=== PATIENT | male | born 1985 | race Caucasian/White ===

== ENCOUNTER 2023-08-13 20:07 | Outpatient (CLI) | payer OTHER, SELFPAY ==
--- OUTSIDE RECORDS SUMMARY | 2023-08-13 20:15 | XMS_ITS | Clinical Summary ---
Author Name Unknown Organization [facility] Address [address] [place] [address] Care Team Providers Care Provisioning Analyst Name Role Phone Casa Duff MD Primary Care Provider [phone] Source Comments You are receiving this document as you are listed as the primary care provider,follow-up provider, or the patient has been referred to you for consultation.This is in compliance with the Medicare and[facility] EHR Incentive Program,which states Providers who transition their patient to another setting of careor provider of care or refers their patient to another provider of care shouldprovide summary care record for each transition of care or referral. [facility] Allergies No known active allergies Medications Medication Sig Dispensed Refills Start Date End Date Status unknown medication Indications: PN: 02/17/2008 Active Active Problems No known active problems Family History Medical History Relation Name Comments Stroke Maternal Grandfather Cancer Paternal Grandfather 70's Relation Name Status Comments Father Alive Mother Alive Maternal Grandfather Paternal Grandfather Social History Tobacco Use Types Packs/Day Years Used Date Smoking Tobacco: Never Smokeless Tobacco: Never Alcohol Use Standard Drinks/Week Comments Yes 0 (1 standard drink = 0.6 oz pur e alcohol) socially Sex and Gender Information Value Date Recorded Sex Assigned at Not on file Gender Identity Not on file Sexual Orientation Not on file Last Filed Vital Signs Vital Sign Reading Time Taken Comments Blood Pressure 102/70 01/23/2015 10:14 AM CDT Pulse 76 01/23/2015 10:14 AM CDT Temperature - - Respiratory Rate - - Oxygen Saturation - - Inhaled Oxygen Concentration - - Weight 64.3 kg (141 lb 12.8 oz) 015 10:14 AM CDT Height 170.2 cm (5' 7) 01/23/2015 10:1 4 AM CDT Body Mass Index 22.21 01/23/2015 10:14 AM CDT Plan of Treatment Health Maintenance Due Date Last Done Comments Hep C Screening (Preventive Services) 1983 HIV Screening (Preventive Services) 1999 Adult Preventive Visit 11/07/2001 DTaP/Tdap/Td (1 - Tdap) 11/07/2002 HepB (1) 11/07/2002 Cholesterol 01/24/2020 01/23/2015 COVID-19 Vaccine (1 - 2022-2 4 season) 2022 Influenza (#1) 2022 Zoster/Shingles (1 of 2) 11/07/2033 HPV Vaccine Aged Out No longer eligi ble based on patient's age to complete this topic HepA Aged Out No longer eligi ble based on patient's age to complete this topic Hib Aged Out No longer eligi ble based on patient's age to complete this topic IPV (Polio) Aged Out No longer eligi ble based on patient's age to complete this topic MCV4 Aged Out No longer eligi ble based on patient's age to complete this topic Pneumococcal Aged Out No longer eligi ble based on patient's age to complete this topic Procedures Procedure Name Priority Date/Time Associated Diagnosis Comments LIPID PANEL & DIRECT LDL (IF NEEDED) Routine 01/23/2015 11:07 AM CDT Annual physical exam Lipid screening Screening for diabetes mellitus from Last 3 Months or Most Recently Relevant to Health Maintenance Results * Lipid Panel and Direct LDL(If Needed) (01/23/2015 11:07 AM CDT) Cholesterol 189 0 - 200 mg/dL HP CONVERSION Triglycerides 91 0 - 149 mg/dL HP CONVERSION HDL Cholesterol 64 >39 mg/dL HP CONVERSION Cholesterol/HDL Ratio Screen 3.0 HP CONVERSION LDL Calculated 107 19 - 130 mg/dL HP CONVERSION Hours Fasting 15.0 HP CONVERSION 01/23/2015 11:0 7 AM CDT 01/23/2015 2:55 PM CDT Narrative HP CONVERSION - 01/23/2015 3:43 PM CDT Performed at [facility], [address] [address], [place] [address] Transcriptions 05/30/2016 2:54 AM CSTNotes Recorded by Casa Duff MD on 01/24/2015 at 1:02 PMplease call him with normal test results. cholesterol, liver, kidneys, blood sugar and prostate are all normal.consider urology consult to discuss recent symptoms in more detail. I will place order for this.thanks.Casa Duff MD 1:01 PM 01/24/2015 Casa Duff MD LAB_[email or web address] HP CONVERSION from Last 3 Months or Most Recently Relevant to Health Maintenance Care Teams Provisioning Analyst Relationship Specialty [place] [id number] [place] [id number] PCP - General 01/19/15
--- OUTSIDE RECORDS SUMMARY | 2023-08-13 20:15 | XMS_ITS | Clinical Summary ---
Author Name Unknown Organization [facility] Address [place], [place] [address] Care Team Providers Care Machinist Automotive Name Role Phone Steffanie Ferguson Primary Care Provide r Allergies No known active allergies Medications Medication Sig Dispensed Refills Start Date End Date Status buPROPion (WELLBUTRIN XL) 300 mg Extended-Release tablet 300 mg. 12/26/2022 A ctive citalopram (CELEXA) 20 mg tablet 30 mg. 06/12/2023 Active loperamide (IMODIUM) 2 mg capsule 2 mg. 12/26/2022 Active Active Problems Problem Noted Date Diagnosed Date Adjustment disorder with depressed mood 07/02/19 Overview: May 15, 2023 Entered By: CAROLINA FRANCOIS Comment: WITH DEPRESSED MOOD Other recurrent depressive disorders 07/02/2023 Irritable bowel syndrome with diarrhea Other asthma 07/02/2023 Encounters Date Type Department Care Team Description 07/09/2023 Telephone [facility] [address] [place] [address] Deep Cheng MD Questions 07/02/2023 1:00 PM CDT Telemedicine [facility] [address] [place] [address] Deep Cheng MD Sleep Consult; Telehealth (Virtual visit, no vitals taken.) 07/02/2023 Travel 07/01/2023 Transcribe Orders [facility] [address] [place] [address] Steffanie Ferguson PA from Last 3 Months Social History Tobacco Use Types Packs/Day Years Used Date Smoking Tobacco: Never Smokeless Tobacco: Never Tobacco Cessation:Counseling Given: Not Answered Alcohol Use Standard Drinks/Week Comments Yes 0 (1 standard drink = 0.6 oz pur e alcohol) Social Connections Answer Date Recorded Frequency of Communication with Friends and Fami ly Not on file 07/02/2023 Sex and Gender Information Value Date Recorded Sex Assigned at Not on file Gender Identity Not on file Sexual Orientation Not on file Obstetrics History Plan of Treatment Health Maintenance Due Date Last Done Comments Tdap 11/07/1994 Depression screening for age 12+ 1995 HIV for age 15-65 11/07/1998 BMI (ht and wt on same day) for age 18+ 11/07/2001 Hepatitis C screening for ag e 18-79 11/07/2001 Tetanus booster 2003 Lipids for age 35-44 11/07/2018 Influenza for age 9-49 12/21/2023 COVID-19 vaccine series Completed 06/12/2023 Pneumococcal series for age 6-64 Aged Out No longer eligible based on patient's age to complete this topic Care Teams Machinist Automotive Relationship Specialty Start Date [place] [address] PCP - General Physician Industrial Waste Treatment Technician 07/01/23
--- OUTSIDE RECORDS SUMMARY | 2023-08-13 20:16 | XMS_ITS | Encounter Summary ---
Author Name [employer] [facility] [employer] [employer] Organization [facility] Address [address] [place] [address] Support Name Relationship Address Phone CASTRO PEARSON Next of Kin [address] [place] [address] CASTRO PEARSON Emergency Contact [address] [place] [address] Insurance Providers: All historical and current Section Date Range: From patient's date of to the date document was created. This section includes the names of all active insurance providers for the patient. Insurance Provider Type of Coverage Plan Name Start of Policy Coverage End of Policy Coverage Group Number Member ID Insurance Provider's Telephone Number Policy Daniel's Name Patient's Relationship to Policy Daniel [place] PREFERRED PROVIDER ORGANIZAT ION (PPO) DOMINGA SEGUNDO SERVI JOSSELIN May 22, 2021 [id number] [phone] LILI,PH ILLIP PATIENT [place] PREFERRED PROVIDER ORGANIZAT ION (PPO) BAILI WICK SERVI JOSSELIN May 22, 2021 [id number] [phone] LILI,PH ILLIP PATIENT PRIME THERAPEUTI CS PRESCRIPT ION RX PLAN May 22, 2021 [facility] [id number] [phone] LILI,PH ILLIP PATIENT Selected Encounter This section includes the information on record at [place] for the Encounter. Date/Time Encounter Type Encounter Description Reason Provider Source Jun 12, 2023 12:00 PM OFFICE O/P EST MOD 30 MIN PRIMARY CARE/MEDICINE ICD-10-CM F33.8 Other recurrent depressive disorders SARAHI FERGUSON IHE Encounter Template Text not used by [place] Assessments - Encounter Diagnoses This section includes the primary and secondary diagnoses documented for the Encounter. Date/Time Primary/Secondary Diagnosis Diagnosis Name Provider Source Jun 12, 2023 12:49 PM PRIMARY Other recurrent depressive disorders RADHA FERGUSON [facility] Jun 12, 2023 12:49 PM SECONDARY Encounter for immunization CYNTHIA ARMANDO [facility] Jun 12, 2023 12:49 PM SECONDARY Male erectile dysfunction, unspecified RADHA FERGUSON [facility] Jun 12, 2023 12:49 PM SECONDARY Other fatigue RADHA FERGUSON [facility] Plan of Treatment: Future Appointments (+ 6 months) and Future Tests (+/- 45 days) The Plan of Treatment section includes future care activities for the patient [facility] [place] [facility] This section includes future appointments and future orders which are active, pending or scheduled. Future Appointments This section includes appointments that were scheduled to occur 6 months from the date of the Encounter, up to a maximum of 20 appointments. The data comes from all [facility]. Appointment Date/Time Appointment Type Appointme nt Facility Name Jun 26, 2023 09:20 AM AMBULATORY - MEDICINE [facility] Jun 26, 2023 10:30 AM AMBULATORY - MEDICINE [facility] Jun 26, 2023 11:30 AM AMBULATORY - MEDICINE [facility] Jul 02, 2023 01:00 PM [facility] Jul 17, 2023 10:30 AM AMBULATORY - MEDICINE [facility] Jul 22, 2023 09:34 PM AMBULATORY - MEDICINE [facility] August 20, 2023 01:20 PM AMBULATORY - MEDICINE [facility] Dec 09, 2023 02:30 PM AMBULATORY - SURGERY [facility] Active, Pending, and Scheduled Orders This section includes a listing of several types of active, pending, and scheduled orders, including clinic medications orders, diagnostic test orders, procedure orders and consult orders; where the start date of the order is 45 days before the date of the Encounter or 45 days after the date of theEncounter. The data comes from all [facility]. Test Date/Time Test Type Test Details Facility Name May 15, 2023 12:12 PM Consult Order [facility] Cons Data Architect's Choice [facility] Jul 23, 2023 12:00 AM Laboratory - Chemi stry Order TTG AB,IGA SERUM SP ONCE [facility] Jul 23, 2023 12:00 AM Laboratory - Chemi stry Order IGA PLASMA SP ONCE [facility] Jul 23, 2023 12:00 AM Laboratory - Chemi stry Order FOOD ALLERGY PROFILE SERUM SP ONCE [facility] Jul 23, 2023 12:00 AM Laboratory - Chemi stry Order C-REACTIVE PROTEIN PLASMA SP ONCE [facility] Lab Results: +/- 30 days of the encounter This section includes the Chemistry and Hematology Lab Results on record with [place] for the patient. Radiology Reports and Pathology Reports are provided separately, in subsequent sections. Lab Results This section contains the Chemistry/Hematology Results that were resulted 30 days before or 30 daysafter the date of the Encounter. Date/Time Source Result Type Result - Unit Interpretation Reference Range Comment Jun 12, 2023 12:35 PM [facility] HEMOGLOBIN A1C Specimen Type: BLOOD Comment: Values obtained from A1C measurements can vary. For typical A1C assays, a reported value of 7.0 could actually be between 6.7 and 7.3 if measured by a reference method. A reported value of 9.0 could actually be between 8.7 and 9.3. Ref: [email or web address].ng [email or web address]/CAPdat a.[email or web address] Ordering Provider: RADHA FERGUSON Report Released Date/Time: Jun 12, 2023 12:34 PM Reporting Lab: [facility] [id number] Performing Lab: [facility] [phone] HEMOGLOBIN A1C 5.1 4.0-6.0 Jun 12, 2023 12:35 PM [facility] ANTI-HEP C(EIA) Specimen Type: SERUM No comment entered. Ordering Provider: RADHA FERGUSON Report Released Date/Time: Jun 12, 2023 12:34 PM Reporting Lab: [facility] [phone] Performing Lab: [facility] [phone] ANTI-HEP C(EIA) NEGATIVE NEGATIVE Jun 12, 2023 12:35 PM [facility] HIV AG/AB SCREEN Specimen Type: SERUM No comment entered. Ordering Provider: RADHA FERGUSON Report Released Date/Time: Jun 12, 2023 12:34 PM Reporting Lab: [facility] [phone] Performing Lab: [facility] [phone] HIV AG/AB SCREEN NEGATIVE NEGATIVE Jun 12, 2023 12:35 PM [facility] TSH W/REFLEX TO FREE T4 Specimen Type: PLASMA No comment entered. Ordering Provider: RADHA FERGUSON Report Released Date/Time: Jun 12, 2023 12:34 PM Reporting Lab: [facility] [phone] Performing Lab: [id number] TSH 0.45 0.35-4.94 Jun 12, 2023 12:35 PM [facility] ELP/IMMFIX,SERUM PANEL Specimen Type: SERUM Comment: Values obtained from A1C measurements can vary. For typical A1C assays, a reported value of 7.0 could actually be between 6.7 and 7.3 if measured by a reference method. A reported value of 9.0 could actually be between 8.7 and 9.3. Ref: http://www.ng [email or web address] a.[email or web address] Ordering Provider: RADHA FERGUSON Report Released Date/Time: Jun 12, 2023 12:34 PM Reporting Lab: [facility] [phone] Performing Lab: [facility] [phone] PROTEIN,TOTAL 6.9 6.0-8.3 .ALBUMIN FRACTION 4.57 3.66-4.78 .ALPHA 1 FRACTION 0.25 0.14-0.38 .ALPHA 2 FRACTION 0.61 0.50-0.90 .BETA 1 FRACTION 0.39 0.33-0.55 .BETA 2 FRACTION 0.23 0.20-0.52 .GAMMA FRACTION 0.85 0.58-1.72 .TOTAL PROTEIN 6.9 6.0-8.3 .INTERPRETATION NO MONOCLONALS DETECTED Jun 12, 2023 12:35 PM [facility] VIT D 25-OH,TOTAL Specimen Type: SERUM No comment entered. Ordering Provider: RADHA FERGUSON Report Released Date/Time: Jun 12, 2023 12:34 PM Reporting Lab: [facility] [phone] Performing Lab: [facility] [phone] VIT D 25-OH,TOTAL 30 12-50 Jun 12, 2023 12:35 PM [facility] IRON GROUP Specimen Type: SERUM Comment: Values obtained from A1C measurements can vary. For typical A1C assays, a reported value of 7.0 could actually be between 6.7 and 7.3 if measured by a reference method. A reported value of 9.0 could actually be between 8.7 and 9.3. Ref: http://www. [email or web address] [email or web address] Ordering Provider: RADHA FERGUSON Report Released Date/Time: Jun 12, 2023 12:34 PM Reporting Lab: [facility] [address] Performing Lab: [facility] [phone] IRON 120 65-175 TIBC,CALCULATED 313 250-425 FERRITIN pending IRON SATURATION 38 20-50 TRANSFERRIN 250 163-382 Jun 12, 2023 12:35 PM [facility] COMPREHENSIVE METABOLIC PANEL+MG Specimen Type: PLASMA Comment: Values obtained from A1C measurements can vary. For typical A1C assays, a reported value of 7.0 could actually be between 6.7 and 7.3 if measured by a reference method. A reported value of 9.0 could actually be between 8.7 and 9.3. Ref: http://www. [email or web address] [email or web address] Ordering Provider: RADHA FERGUSON Report Released Date/Time: Jun 12, 2023 12:34 PM Reporting Lab: [facility] [phone] Performing Lab: [facility] Jun 12, 2023 12:35 PM [facility] CBC & DIFF Specimen Type: BLOOD Comment: Automated Differential Performed Ordering Provider: RADHA FERGUSON Report Released Date/Time: Jun 12, 2023 12:34 PM Reporting Lab: [facility] [phone] Performing Lab: [facility] [phone] WBC 5.32 4.0-11.0 RBC 5.94 4.6-6.2 HGB 16.6 13.5-17.9 HCT 49.7 41-54 MCV 83.7 80-100 MCH 27.9 27-33 MCHC 33.4 32.0-37.5 PLT 258 150-400 MPV 8.7 7.4-10.4 NEUT 71.7 40.0-80.0 LYMPHS 20.3 15.0-45.0 MONO 6.4 2.0-12.0 EOSINO 0.6 0.0-6.0 BASO 0.8 0.0-2.0 RDW 12.6 11.5-14.5 ABS LYMPH 1.08 1.0-4.0 ABS MONO 0.34 0.1-1.0 ABS NEUT 3.82 2.0-7.7 ABS EOS 0.03 0-0.5 ABS BASO 0.04 0-0.2 IG(META,MYELO,P RO) 0.2 ABS IMMATURE GRAN 0.01 0-0.1 Jun 12, 2023 10:30 AM [facility] URINALYSIS Specimen Type: URINE No comment entered. Ordering Provider: YANIRA BERTRAND Report Released Date/Time: Jun 12, 2023 10:01 AM Reporting Lab: [facility] [phone] Performing Lab: [facility] [address] URINE COLOR LIGHT-YELLOW SPECIFIC GRAVITY 1.011 1.003-1.03 5 URINE BILIRUBIN NEGATIVE NEGATIVE URINE KETONES NEGATIVE NEGATIVE URINE GLUCOSE NEGATIVE See_Co mmen t URINE PROTEIN NEGATIVE See_Co mmen t URINE PH 8.0 5.0-8.0 URINE WBC/HPF <1 0-7 URINE BACTERIA NONE SEEN URINE RBC/HPF NONE SEEN 0-3 APPEARANCE CLEAR SQUAMOUS EPITHELIAL NONE SEEN URINE BLOOD NEGATIVE NEGATIVE URINE NITRITE NEGATIVE NEGATIVE LEUKOCYTE ESTERASE NEGATIVE NEGATIVE Vital Signs: All taken on the encounter date This section contains inpatient and outpatient Vital Signs collected on the date of the Encounter. Date/Time Temperature Pulse Blood Pressure Respiratory Rate SP02 Pain Height Weight Body Mass Index Source Jun 12, 2023 12:00 PM 99 74 131/85 18 97 5 157.3 25 [place] [facility] Immunizations: All administered on the encounter date This section contains immunizations associated to the Encounter. Immunization Series Date Issued Reaction Comments COVID-19 (PFIZER), MRNA, LNP -S, PF, JERRI-SUCROSE, 30 MCG/0.3 ML (AGES 12+ YEARS) 1 Jun 12, 2023 Social History: Smoking Status (Most current) and Tobacco Use (All prior to encounter date) This section includes the most current, and the historical, smoking and tobacco- related health factors from the [place] facility where the Encounter took place. Current Smoking Status This section includes the most current smoking, or tobacco-related health factor, from the [place] facility where the Encounter took place. Date/Time Current Smoking Status Comment Parag lima Sep 24, 2022 01:00 PM VA-TOBACCO NEVER USED [facility] Tobacco Use History This section includes a history of the smoking, or tobacco-related health factors, that were collected on or before the date of the Encounter. The data comes from the [place] facility where the Encounter took place. Date/Time Smoking Status/Tobacco Use Comment F acility Mar 28, 2021 02:33 PM VA-TOBACCO NEVER USED [facility] Jan 21, 2020 02:30 PM VA-TOBACCO NEVER USED [facility] Jun 15, 2018 09:56 AM VA-TOBACCO NEVER USED [facility] Jul 16, 2017 08:39 AM LIFETIME NON-TOBACCO USER [facility] September 05, 2016 05:17 PM LIFETIME NON-TOBACCO USER [facility] Feb 19, 2008 12:20 PM LIFETIME NON-TOBACCO USER [facility] Radiology Reports: +/- 30 days of the encounter Radiology Reports For cases when an order for radiology services may have been completed prior to the date of the Encounter, the report list includes the Radiology Reports that were completed up to 30 days before dateof the Encounter. For cases when an order for radiology services may have been completed after the date of the Encounter, the report list also includes the Radiology Reports that were completed up to30 days after date of the Encounter. The data comes from all [place] treatment facilities. Date/Time Radiology Report Provider Source Jun 12, 2023 10:35 AM LUMBAR SPINE MIN 4 VIEWS: AFTAB PEARSON [id number] -1985 M Exm Date: JUN 12, 2023@10:35 Req Phys: CAROLINA FRANCOIS Pat Loc: [facility] C&P ALESSANDRO (Req'g Loc Img Loc: MAIN X-RAY Service: Unknown (Case [id number] COMPLETE) LUMBAR SPINE MIN 4 VIEWS (RAD Detailed) CPT:16821 Proc Modifiers : Standing Reason for Study: Chronic lumbalgia 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 [employer] Clinical History: IS NOT under investigation for COVID-19 or is COVID-19 negative Standing AP, Standing Lat, Standing L5/S1 Lat, Vo. Chronic lumbalgia 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 [employer] Responsible provider name and phone number to notify for critical findings if other than user placing the order and pager listed below: User placing orders pager: LAST CREATININE 1.0 (12/26/22) Report Status: Verified Date Reported: JUN 12, 2023 Date Verified: JUN 12, 2023 Train Attendant E-Sig:/ES/DANIEL BOND MD, FACR, CCD Report: EXAMINATION: LUMBAR SPINE MIN 4 VIEWS 06/12/2023 10:35 AM INDICATION: Chronic lumbalgia 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 [employer] COMPARISON: None. FINDINGS: The lumbar vertebral bodies appear intact. No abnormal subluxation identified. Mild degenerative changes L1-2 disc space. The other disc spaces appear preserved. The SI joints appear unremarkable. Impression: Mild degenerative changes L1-2 disc space. Primary Interpreting Staff: DANIEL BOND MD, FACR, STAFF RADIOLOGIST (Train Attendant) /BSF DANIEL BOND [facility] Jun 12, 2023 10:35 AM CHEST 2 VIEWS PA A ND LAT: AFTAB PEARSON [id number] -1985 M Exm Date: JUN 12, 2023@10:35 Req Phys: CAROLINA FRANCOIS Pat Loc: [facility]SN [facility] C&P ALESSANDRO (Req'g Loc Img Loc: MAIN X-RAY Service: Unknown (Case [id number] COMPLETE) CHEST 2 VIEWS PA AND LAT (RAD Detailed) CPT:83459 Reason for Study: H/O asbestos exposure approximately 10 years ago. Clinical History: Cadet IS NOT under investigation for COVID-19 or is COVID-19 negative H/O asbestos exposure approximately 10 years ago. Responsible provider name and phone number to notify for critical findings if other than user placing the order and pager listed below: User placing orders pager: LAST CREATININE 1.0 (12/26/22) Report Status: Verified Date Reported: JUN 12, 2023 Date Verified: JUN 12, 2023 Train Attendant E-Sig:/ES/VERONICA FARLEY MD Report: EXAMINATION: CHEST 2 VIEWS PA AND LAT 06/12/2023 10:35 AM INDICATION: H/O asbestos exposure approximately 10 years ago. Impression: Incidentally noted is an azygos lobe. Chest otherwise unremarkable. No calcified pleural plaque identified on this plain film examination. Lungs are clear without infiltrate or pleural effusion. Heart size and pulmonary vascularity within normal limits. No comparison exam. 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 [employer] Clinical History: [place] IS NOT under investigation for COVID-19 or is COVID-19 negative 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 [employer] Responsible provider name and phone number to notify for critical findings if other than user placing the order and pager listed below: User placing orders pager: LAST CREATININE 1.0 (12/26/22) Report Status: Verified Date Reported: JUN 12, 2023 Date Verified: JUN 12, 2023 Train Attendant E-Sig:/ES/VERONICA FARLEY MD Report: EXAMINATION: KNEE RIGHT 4 VIEWS 06/12/2023 10:34 AM INDICATION: 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 No significant degenerative changes of the knee. No significant joint effusion. No comparison exam. Primary Interpreting Staff: VERONICA FARLEY MD, RADIOLOGIST (Train Attendant) /RTS VERONICA FARLEY [facility] Jun 12, 2023 10:34 AM KNEE LEFT 4 VIEWS: AFTAB PEARSON [id number] -1985 M Exm Date: JUN 12, 2023@10:34 Req Phys: CAROLINA FRANCOIS Pat Loc: [facility]SN [facility] C&P ALESSANDRO (Req'g Loc Img Loc: MAIN X-RAY Service: Unknown (Case [id number] COMPLETE) KNEE LEFT 4 VIEWS (RAD Detailed) CPT:27764 Reason for Study: 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 [employer] Clinical History: IS NOT under investigation for COVID-19 or is COVID-19 negative 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 [employer] Responsible provider name and phone number to notify for critical findings if other than user placing the order and pager listed below: User placing orders pager: LAST CREATININE 1.0 (12/26/22) Report Status: Verified Date Reported: JUN 12, 2023 Date Verified: JUN 12, 2023 Train Attendant E-Sig:/ES/VERONICA FARLEY MD Report: EXAMINATION: KNEE LEFT 4 VIEWS 06/12/2023 10:34 AM INDICATION: 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 No significant degenerative changes of the knee. No significant joint effusion. Primary Interpreting Staff: VERONICA FARLEY MD, RADIOLOGIST (Train Attendant) /RTS VERONICA FARLEY [facility] Encounter Notes: All associated encounter notes This section contains the clinical notes associated to the Encounter. Date/Time Encounter Note(s) Provider Source Jun 13, 2023 11:40 AM LETTERS: LOCAL TITLE: FOLLOW UP RESULTS LETTER STANDARD TITLE: LETTERS DATE OF NOTE: JUN 13, 2023@11:40 ENTRY DATE: JUN 13, 2023@11:40:44 AUTHOR: STEFFANIE FERGUSON EXP COSIGNER: URGENCY: STATUS: COMPLETED [facility] [address] [place] [address] May AFTAB ALCALA LILI [address] [facility] [address] Dear Cadet: I am writing to inform you of the results of testing that you had done recently at the [facility]. - Complete Blood Count (red/white blood cell counts and platelets) White count: WBC 5.32 (06/12/23) (normal is 4.0-11.0) Hemoglobin: HGB 16.6 (06/12/23) (normal Male is 13.5-17.9; Female is 11.5-16) Hematocrit: HCT 49.7 (06/12/23) (normal Male is 41-54; Female is 34.5-48) Platelets: PLT 258 (06/12/23) (normal is 150-400) - Electrolytes including sodium and potassium SODIUM 140 (06/12/23) (normal is 136-145) POTASSIUM 3.9 (06/12/23) (normal is 3.5-5.1) - Calcium CALCIUM 9.7 (06/12/23) (normal is 8.5-10.1) - Kidney function CREATININE 0.9 (06/12/23)(normal Male = less than 1.2; normal Female = less than 1.0)) UREA NITROGEN 10 (06/12/23) (normal Male is 8-26; normal Female is 10-20) - Blood Sugar GLUCOSE 89 (06/12/23) (normal is 70 - 100 if fasting) - Liver function Tests AST/SGOT 22 (06/12/23) (normal 15-37) ALT/SGPT 22 (06/12/23) (normal 13-61) ALK PHOSPHATASE 69 (06/12/23) (normal 45-117) BILIRUBIN, TOTAL 0.6 (06/12/23) (normal 0.2-1.0) - Hemoglobin A1C (normal 4.0-6.0) Collection DT Spec HGBA1C 06/12/2023 12:35 BLOOD 5.1 03/09/2010 15:09 BLOOD 4.8 - Thyroid Function: TSH 0.45 (06/12/23) (normal 0.3-5.0) Additional Comments: Your labs were all normal. If you have any further questions or problems, please contact our nursing staff or provider at the following number: [phone]. Sincerely, Steffanie Ferguson PA-C Physician [employer] STEFFANIE FERGUSON [facility] Jun 12, 2023 12:35 PM INTERNAL MEDICINE NOTE: LOCAL TITLE: MEDICINE CLINIC NOTE STANDARD TITLE: INTERNAL MEDICINE NOTE DATE OF NOTE: JUN 12, 2023@12:35 ENTRY DATE: JUN 12, 2023@12:36 AUTHOR: STEFFANIE FERGUSON EXP COSIGNER: URGENCY: STATUS: COMPLETED Nurse's notes reviewed from today. AFTAB PEARSON is a 37 year old MALE with a past medical history significant for depression and adjustment disorder who presents to the [facility] (primary HSQD-yldwipd-xcx available) for medication question. His did a genetic test to see which antidepressant would work best for her, he would like this too. He is reporting ED with the wellbutrin and citalopram, otherwise they are controlling his symptoms well. Also has fatigue, wanted a stimulant but was tested for ADHD and did not have this. Has a referral to the sleep clinic but has not scheduled. No weakness noted. just feels tired all day and that he could take a nap at any time. Active problems - Computerized Problem List is the source for the followin. Tinea Unguium 2. Acne 3. Adjustment disorder with depressed mood 4. Depression 5. Social phobia 6. Temporomandibular joint disorder 7. 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 Air pollution (SNOMED CT 863931406) 9. Exposure to asbestos (SNOMED CT 073625418) - In Dorm in [place] 10. Exposure to aromatic benzene (SNOMED CT 034330633523502) - JET FUEL contaminant 11. Exposed to tobacco smoke at work (SNOMED CT 829586309) - Passive smoke 12. Exposed to noise (SNOMED CT 0072609) - Acoustical Trauma 13. Shortness of breath (SNOMED CT 561995559) - CESPEDES 14. History of palpitations (SNOMED CT 763010764) - NOS 15. Diarrhea (SNOMED CT 77190696) - Constant issue 16. Adjustment disorder (SNOMED CT 90344077) - WITH DEPRESSED MOOD 17. Wheezing - Wheezing when running not seen by Pulmonary 18. 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 Exposure to potentially hazardous substance 20. Finding of frequency of urination Allergies: Patient has answered NKA Active and Recently Outpatient Medications (including Supplies): Active Outpatient Medications Status 1) BUPROPION HCL 300MG 24HR SA TAB TAKE ONE TABLET BY ACTIVE MOUTH EVERY MORNING FOR MOOD 2) HYDROXYZINE HCL 25MG TAB TAKE ONE TABLET BY MOUTH AT ACTIVE BEDTIME FOR SLEEP 3) LACTASE 3000 UNT TAB TAKE ONE TABLET BY MOUTH FOUR ACTIVE TIMES A DAY NEEDED FOR LACTOSE INTOLERANCE 4) LOPERAMIDE HCL 2MG CAP TAKE ONE CAPSULE BY MOUTH ACTIVE THREE TIMES A DAY NEEDED FOR DIARRHEA Pending Outpatient Medications Status 1) CITALOPRAM HYDROBROMIDE 20MG TAB TAKE ONE AND PENDING ONE-HALF TABLETS BY MOUTH EVERY DAY 2) SILDENAFIL CITRATE 100MG TAB TAKE ONE TABLET BY MOUTH PENDING ONCE NEEDED Inactive Outpatient Medications Status 1) BUPROPION HCL 300MG 24HR SA TAB TAKE ONE TABLET BY DISCONTINUED MOUTH EVERY MORNING FOR MOOD 2) CITALOPRAM HYDROBROMIDE 10MG TAB TAKE ONE TABLET BY DISCONTINUED MOUTH EVERY DAY FOR ANXIETY (EDIT) 3) CITALOPRAM HYDROBROMIDE 20MG TAB TAKE ONE TABLET BY DISCONTINUED MOUTH EVERY DAY FOR ANXIETY (EDIT) 4) CITALOPRAM HYDROBROMIDE 20MG TAB TAKE ONE TABLET BY DISCONTINUED MOUTH EVERY DAY FOR ANXIETY 5) HYDROXYZINE HCL 25MG TAB TAKE ONE TABLET BY MOUTH AT DISCONTINUED BEDTIME FOR SLEEP 6) LOPERAMIDE HCL 2MG CAP TAKE ONE CAPSULE BY MOUTH DISCONTINUED THREE TIMES A DAY NEEDED FOR DIARRHEA Active Non-VA Medications Status 1) Non-VA DIPHENHYDRAMINE HCL 25MG CAP 25MG MOUTH EVERY ACTIVE DAY NEEDED 2) Non-VA LORATADINE 10MG TAB 10MG MOUTH EVERY DAY ACTIVE NEEDED 14 Total Medications MEDICATION RECONCILIATION Outpatient At this visit I have reviewed the medication list, and discussed relevant medications with the patient/surrogate. An updated patient medication list was given to the participant(s). (x) No Change ( ) Change/New: I have noted this on the patient's copy of the medication list. Education on NEW Medication: I have reviewed the medication list for possible drug:drug interactions or contraindications prior to ordering NEW medications during this visit. ( )Patient instructed. I noted new medication on patient's copy of the medication list. Patient sent to Pharmacist for education on new medication. ( )Patient ( )Family Member ( )Caregiver indicated readiness to learn and has been instructed on action, dose, frequency and side effects of the new medication and I noted new medication on participant's copy of the medication list. ( ) Verbalizes understanding of instructions. ( ) Needs additional reinforcement of instructions(sent to Pharmacist). ( )Patient unable to participate in learning/instruction. Family/Social History: (x) Not applicable to today's visit. 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 Assessment and Plan: #. Depression Discussed that we do not have the genetic test available here currently. Offered to trial a new med but he declines. Will continue wellbutrin and increase celexa to 30mg daily. #. ED trial of viagra #. Fatigue encouraged to schedule with sleep clinic. Will check labs today as well. (x) Patient/Caregiver indicates readiness to learn, verbalizes understanding, agreement and satisfaction with the treatment plan. Patient/Caregiver doesn't have any further questions today. /bhupendra/ Steffanie Ferguson PA-C Physician Mcat Tutor Signed: 06/12/2023 12:49 STEFFANIE FERGUSON [facility] Jun 12, 2023 12:01 PM INTERNAL MEDICINE OUTPATIENT NOTE: LOCAL TITLE: MEDICINE CLINIC NURSING NOTE STANDARD TITLE: INTERNAL MEDICINE OUTPATIENT NOTE DATE OF NOTE: JUN 12, 2023@12:01 ENTRY DATE: JUN 12, 2023@12:02:04 AUTHOR: JEANNA ARMANDO EXP COSIGNER: URGENCY: STATUS: COMPLETED TYPE OF VISIT: Appointment Check In Type of appointment: In-person appointment REASON FOR VISIT: medication ALLERGIES: Patient has answered NKA VITAL SIGNS: Blood Pressure: 131/85 (06/12/2023 12:00) Pulse: 74 (06/12/2023 12:00) Respiration: 18 (06/12/2023 12:00) Temperature: 99 F [37.2 C] (06/12/2023 12:00) Weight: 157.3 lb [71.35 kg] (06/12/2023 12:00) Height: 67 in [170.2 cm] (12/26/2022 09:51) BMI: 24.7 O2 Sat: 97% (06/12/2023 12:00) Pain: 5 (06/12/2023 12:00) PAIN SCREEN: Patient is not having significant pain that they wish to discuss with their provider today. MEDICATION Over the Counter/Herbal Medications: The patient states that they take some outside medications and/or herbals. COVID-19 Immunization: Pfizer Monovalent (Comirnaty) Administered: COVID-19 (PFIZER), MRNA, LNP-S, PF, JERRI-SUCROSE, 30 MCG/0.3 ML (AGES 12+ YEARS) Date Administered: Jun 12, 2023 12:00 Series: Series 1 Corrugator Operator: [employer] Lot: [id number] Exp Date: September 19, 2023 [facility]: [phone] Admin Route/Site: INTRAMUSCULAR/LEFT DELTOID Dosage: 0.3mL Vaccine Information Statement(s): COVID-19 MRNA VACCINE (12+ YRS) VACCINE VIS Feb 06, 2023 ([facility]) Order By: Policy Administered By: Jeanna Armando Vaccine administered without complications. The patient was advised to remain in the facility for 15 minutes post vaccination. /bhupendra/ JEANNA ARMANDO LPN LICENSED PRACTICAL NURSE Signed: 06/12/2023 12:05 JEANNA ARMANDO [facility]
--- OUTSIDE RECORDS SUMMARY | 2023-08-13 20:16 | XMS_ITS | Encounter Summary ---
Author Name [employer] [facility] [employer] Organization [facility] Address [address] [place] [address] Support Name Relationship Address Phone CASTRO PEARSON Next of Kin [email or web address] [address] CASTRO PEARSON Emergency Contact [address] [place] [address] Insurance Providers: All historical and [...] DOMINGA SEGUNDO SERVI JOSSELIN May 22, 2021 [id number] [phone] LILI,PH ILLIP PATIENT [place] PREFERRED PROVIDER ORGANIZAT ION (PPO) BAILI WICK SERVI JOSSELIN May 22, 2021 [id number] [phone] LILI,PH ILLIP PATIENT PRIME THERAPEUTI CS PRESCRIPT ION RX PLAN May 22, 2021 [facility] [id number] [phone] LILI,PH ILLIP PATIENT Selected Encounter This section includes the information on record at [place] for the Encounter. Date/Time Encounter Type Encounter Description Reason Provider Source May 15, 2023 10:00 AM Outpatient Encounter GENERAL INTERNAL MEDICINE ICD-10-CM Z77.29 Contact with and exposure to other hazardous substances VADIM FRANCOIS E Encounter Template Text not used by [place] Assessments - Encounter Diagnoses This section includes the primary and secondary diagnoses documented for the Encounter. Date/Time Primary/Secondary Diagnosis Diagnosis Name Provider Source May 15, 2023 11:32 AM PRIMARY Contact with and exposure to other hazardous substances ALESSANDRO,VADIM B [facility] May 15, 2023 11:32 AM SECONDARY Adjustment disorder with depressed mood ALESSANDRO,VADIM B [facility] May 15, 2023 11:32 AM SECONDARY Adjustment disorder, unspecified ALESSANDRO,VADIM B [facility] May 15, 2023 11:32 AM SECONDARY Anxiety disorder, unspecified ALESSANDRO,VADIM B [facility] May 15, 2023 11:32 AM SECONDARY Cntct w and expsr to environ tobacco smoke (acute) (chronic) ALESSANDRO,VADIM B [facility] May 15, 2023 11:32 AM SECONDARY Contact w and (suspected) exposure to oth hazardous metals ALESSANDRO,VADIM B [facility] May 15, 2023 11:32 AM SECONDARY Contact with and (suspected) exposure to air pollution ALESSANDRO,VADIM B [facility] May 15, 2023 11:32 AM SECONDARY Contact with and (suspected) exposure to asbestos ALESSANDRO,VADIM B [facility] May 15, 2023 11:32 AM SECONDARY Contact with and (suspected) exposure to benzene ALESSANDRO,VADIM B [facility] May 15, 2023 11:32 AM SECONDARY Contact with and (suspected) exposure to noise ALESSANDRO,VADIM B [facility] May 15, 2023 11:32 AM SECONDARY Diarrhea, unspecified ALESSANDRO,VADIM B [facility] May 15, 2023 11:32 AM SECONDARY Lactose intolerance, unspecified ALESSANDRO,VADIM B [facility] May 15, 2023 11:32 AM SECONDARY Other recurrent depressive disorders ALESSANDRO,VADIM B [facility] May 15, 2023 11:32 AM SECONDARY Palpitations ALESSANDRO,VADIM B [facility] May 15, 2023 11:32 AM SECONDARY Right temporomandibular joint disorder, unspecified ALESSANDRO,VADIM B [facility] May 15, 2023 11:32 AM SECONDARY Shortness of breath ALESSANDRO,VADIM B [facility] May 15, 2023 11:32 AM SECONDARY Wheezing VADIM FRANCOIS [facility] Plan of Treatment: Future Appointments (+ 6 months) and Future Tests (+/- 45 days) The Plan of Treatment section includes future care activities for the patient from all [place] [facility]. This section includes future appointments and future orders which are active, pending or scheduled. Future Appointments This section includes appointments that were scheduled to occur 6 months from the date of the Encounter, up to a maximum of 20 appointments. The data comes from all [facility]. Appointment Date/Time Appointment Type Appointme nt Facility Name Jun 12, 2023 09:30 AM AMBULATORY - SURGERY [facility] Jun 12, 2023 11:30 AM [facility] Jun 12, 2023 12:00 PM [facility] Jun 26, 2023 09:20 AM [facility] Jun 26, 2023 10:30 AM [facility] Jun 26, 2023 11:30 AM [facility] Jul 02, 2023 01[facility]00 PM [facility] Jul 17, 2023 10:30 AM [facility] Jul 22, 2023 09:34 PM [facility] August 20, 2023 01:20 PM AMBULATORY MEDICINE [facility] Active, Pending, and Scheduled Orders This section includes a listing of several types of active, pending, and scheduled orders, including clinic medications orders, diagnostic test orders, procedure orders and consult orders; where the start date of the order is 45 days before the date of the Encounter or 45 days after the date of theEncounter. The data comes from all [facility]. Test Date/Time Test Type Test Details Facility Name May 15, 2023 12:12 PM Consult Order COMMUNITY CARE-SLEEP MEDICINE Cons Online Media Director's Choice [facility] Lab Results: +/- 30 days of the encounter This section includes the Chemistry and Hematology Lab Results on record with [place] for the patient. Radiology Reports and Pathology Reports are provided separately, in subsequent sections. Lab Results This section contains the Chemistry/Hematology Results that were resulted 30 days before or 30 daysafter the date of the Encounter. Date/Time Source Result Type Result - Unit Interpretation Reference Range Comment Jun 12, 2023 12:35 PM [facility] HEMOGLOBIN A1C Specimen Type: BLOOD Comment: Values obtained from A1C measurements can vary. For typical A1C assays, a reported value of 7.0 could actually be between 6.7 and 7.3 if measured by a reference method. A reported value of 9.0 could actually be between 8.7 and 9.3. Ref: http://www.ng sp.org/CAPdat a.asp Ordering Provider: RADHA HAYES Report Released Date/Time: Jun 12, 2023 12:34 PM Reporting Lab: [facility] [id number] Performing Lab: [facility] [address] HEMOGLOBIN A1C 5.1 4.0-6.0 Jun 12, 2023 12:35 PM [facility] ANTI-HEP C(EIA) Specimen Type: SERUM No comment entered. Ordering Provider: RADHA HAYES Report Released Date/Time: Jun 12, 2023 12:34 PM Reporting Lab: [facility] [address] Performing Lab: [facility] [address] ANTI-HEP C(EIA) NEGATIVE NEGATIVE Jun 12, 2023 12:35 PM [facility] HIV AG/AB SCREEN Specimen Type: SERUM No comment entered. Ordering Provider: RADHA HAYES Report Released Date/Time: Jun 12, 2023 12:34 PM Reporting Lab: [facility] [address] Performing Lab: [facility] [address] HIV AG/AB SCREEN NEGATIVE NEGATIVE Jun 12, 2023 12:35 PM [facility] TSH W/REFLEX TO FREE T4 Specimen Type: PLASMA No comment entered. Ordering Provider: RADHA HAYES Report Released Date/Time: Jun 12, 2023 12:34 PM Reporting Lab: [facility] [address] Performing Lab: [facility] [address] TSH 0.45 0.35-4.94 Jun 12, 2023 12:35 PM [facility] ELP/IMMFIX,SERUM PANEL Specimen Type: SERUM Comment: Values obtained from A1C measurements can vary. For typical A1C assays, a reported value of 7.0 could actually be between 6.7 and 7.3 if measured by a reference method. A reported value of 9.0 could actually be between 8.7 and 9.3. Ref: http://www.ng sp.org/CAPdat a.asp Ordering Provider: RADHA HAYES Report Released Date/Time: Jun 12, 2023 12:34 PM Reporting Lab: [facility] [address] Performing Lab: [facility] [address] PROTEIN,TOTAL 6.9 6.0-8.3 .ALBUMIN FRACTION 4.57 3.66-4.78 .ALPHA 1 FRACTION 0.25 0.14-0.38 .ALPHA 2 FRACTION 0.61 0.50-0.90 .BETA 1 FRACTION 0.39 0.33-0.55 .BETA 2 FRACTION 0.23 0.20-0.52 .GAMMA FRACTION 0.85 0.58-1.72 .TOTAL PROTEIN 6.9 6.0-8.3 .INTERPRETATION NO MONOCLONALS DETECTED Jun 12, 2023 12:35 PM [facility] VIT D 25-OH,TOTAL Specimen Type: SERUM No comment entered. Ordering Provider: RADHA HAYES Report Released Date/Time: Jun 12, 2023 12:34 PM Reporting Lab: [facility] [address] Performing Lab: [facility] [address] VIT D 25-OH,TOTAL 30 12-50 Jun 12, 2023 12:35 PM [facility] IRON GROUP Specimen Type: SERUM Comment: Values obtained from A1C measurements can vary. For typical A1C assays, a reported value of 7.0 could actually be between 6.7 and 7.3 if measured by a reference method. A reported value of 9.0 could actually be between 8.7 and 9.3. Ref: http://www.ng sp.org/CAPdat a.asp Ordering Provider: RADHA HAYES Report Released Date/Time: Jun 12, 2023 12:34 PM Reporting Lab: [facility] [address] Performing Lab: [facility] [address] IRON 120 65-175 TIBC,CALCULATED 313 250-425 FERRITIN pending IRON SATURATION 38 20-50 TRANSFERRIN 250 163-382 Jun 12, 2023 12:35 PM [facility] COMPREHENSIVE METABOLIC PANEL+MG Specimen Type: PLASMA Comment: Values obtained from A1C measurements can vary. For typical A1C assays, a reported value of 7.0 could actually be between 6.7 and 7.3 if measured by a reference method. A reported value of 9.0 could actually be between 8.7 and 9.3. Ref: http://www.ng sp.org/CAPdat a.asp Ordering Provider: RADHA HAYES Report Released Date/Time: Jun 12, 2023 12:34 PM Reporting Lab: [facility] [address] Performing Lab: [facility] Jun 12, 2023 12:35 PM [facility] CBC & DIFF Specimen Type: BLOOD Comment: Automated Differential Performed Ordering Provider: RADHA HAYES Report Released Date/Time: Jun 12, 2023 12:34 PM Reporting Lab: [facility] [address] Performing Lab: [facility] [address] WBC 5.32 4.0-11.0 RBC 5.94 4.6-6.2 HGB [...] 0.01 0-0.1 Jun 12, 2023 10:30 AM [facility] URINALYSIS Specimen Type: URINE No comment entered. Ordering Provider: YANIRA BERTRAND Report Released Date/Time: Jun 12, 2023 10:01 AM Reporting Lab: [facility] [address] Performing Lab: [facility] [address] URINE COLOR LIGHT-YELLOW SPECIFIC GRAVITY 1.011 1.003-1.03 5 URINE BILIRUBIN NEGATIVE NEGATIVE URINE KETONES NEGATIVE NEGATIVE URINE GLUCOSE NEGATIVE See_Co mmen t URINE PROTEIN NEGATIVE See_Co mmen t URINE PH 8.0 5.0-8.0 URINE WBC/HPF <1 0-7 URINE BACTERIA NONE SEEN URINE RBC/HPF NONE SEEN 0-3 APPEARANCE CLEAR SQUAMOUS EPITHELIAL NONE SEEN URINE BLOOD NEGATIVE NEGATIVE URINE NITRITE NEGATIVE NEGATIVE LEUKOCYTE ESTERASE NEGATIVE NEGATIVE Radiology Reports: +/- 30 days of the [...] the Encounter. The data comes from all [place] treatment facilities. Date/Time Radiology Report Provider Source Jun 12, 2023 10:35 AM CHEST 2 VIEWS PA A ND LAT: AFTAB PEARSON [id number] -1985 M Exm Date: JUN 12, 2023@10:35 Req Phys: VADIM FRANCOIS Pat Loc: [facility] C&P LAESSANDRO (Req'g Loc Img Loc: MAIN X-RAY Service: Unknown (Case [id number] COMPLETE) CHEST 2 VIEWS PA AND LAT (RAD Detailed) CPT:35876 Reason for Study: H/O asbestos exposure approximately 10 years ago. Clinical History: IS NOT under investigation for COVID-19 or is COVID-19 negative H/O asbestos exposure approximately 10 years ago. Responsible provider name and phone number to notify for critical findings if other than user placing the order and pager listed below: User placing orders pager: LAST CREATININE 1.0 (12/26/22) Report Status: Verified Date Reported: JUN 12, 2023 Date Verified: JUN 12, 2023 Shell Reprint Operator E-Sig:/ES/VERONICA FARLEY MD Report: EXAMINATION: CHEST 2 [...] Primary Interpreting Staff: VERONICA FARLEY MD, RADIOLOGIST (Shell Reprint Operator) /RTS VERONICA FARLEY [facility] Jun 12, 2023 10:35 AM LUMBAR SPINE MIN 4 VIEWS: AFTAB PEARSON [id number] -1985 M Exm Date: JUN 12, 2023@10:35 Req Phys: VADIM FRANCOIS Pat Loc: [facility] C&P ALESSANDRO (Req'g Loc Img Loc: MAIN X-RAY Service: Unknown (Case [id number] COMPLETE) LUMBAR SPINE MIN 4 VIEWS (RAD Detailed) CPT:57132 Proc Modifiers : Standing Reason for Study: [...] 12, 2023 Date Verified: JUN 12, 2023 Shell Reprint Operator E-Sig:/ES/DAINEL BOND MD, FACR, CCD Report: EXAMINATION: LUMBAR [...] Staff: DANIEL BOND MD, FACR, STAFF RADIOLOGIST (Shell Reprint Operator) /BSF DANIEL BOND [facility] Jun 12, 2023 10:34 AM KNEE RIGHT 4 VIEWS : AFTAB PEARSON [id number] -1985 M Exm Date: JUN 12, 2023@10:34 Req Phys: ALESSANDRO,VADIM B Pat Loc: [facility] C&P ALESSANDRO (Req'g Loc Img Loc: MAIN X-RAY Service: Unknown (Case [id number] COMPLETE) KNEE RIGHT 4 VIEWS (RAD Detailed) CPT:86290 Reason for Study: Chronic bilateral knee pain [...] 12, 2023 Date Verified: JUN 12, 2023 Shell Reprint Operator E-Sig:/ES/VERONICA FARLEY MD Report: EXAMINATION: KNEE RIGHT 4 VIEWS 06/12/2023 10:34 AM INDICATION: 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 No significant degenerative changes of the knee. No significant joint effusion. No comparison exam. 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 [employer] Clinical History: [place] IS NOT under investigation for COVID-19 or is COVID-19 negative 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 No significant degenerative changes of the knee. No significant joint effusion. Primary Interpreting Staff: VERONICA FARLEY MD, RADIOLOGIST (Shell Reprint Operator) /RTS VERONICA FARLEY [facility] Encounter Notes: All associated encounter notes This section contains the clinical notes associated to the Encounter. Date/Time Encounter Note(s) Provider Source Jun 12, 2023 01:33 PM LETTERS: LOCAL TITLE: FOLLOW UP RESULTS LETTER STANDARD TITLE: LETTERS DATE OF NOTE: JUN 12, 2023@13:33 ENTRY DATE: JUN 12, 2023@13:33:32 AUTHOR: VADIM FRANCOIS EXP COSIGNER: URGENCY: STATUS: COMPLETED [facility] [address] [place] [address] May AFTAB ALCALA LILI [address] [facility] [address] Dear : Below are the results of the x-rays done for you at the [facility] on June 12, 2023. The x-rays are satisfactory unless otherwise noted. ======= RIGHT KNEE Radiologist's Impression: Perhaps slight narrowing along the lateral portions of the patellofemoral compartment. No significant degenerative changes of the knee. No significant joint effusion. No comparison exam. EXPLANTION from Dr. Francois: No signs of arthritis. The slight narrowing of the lateral patellofemoral compartment, if it progresses, may be early signs of arthritis. It is not possible to determine if this is the case without observation over time. ======= LEFT KNEE Radiologist's Impression: Perhaps slight narrowing of the lateral portion of the patellofemoral compartment. No significant degenerative changes of the knee. No significant joint effusion. EXPLANTION from Dr. Francois: No signs of arthritis. The slight narrowing of the lateral patellofemoral compartment, if it progresses, may be early signs of arthritis. It is not possible to determine if this is the case without observations over time. ======= LUMBAR SPINE Radiologist's FINDINGS: The lumbar vertebral bodies appear intact. No abnormal subluxation [movement] identified. Mild degenerative [arthritic type] changes at the L1-2 disc space. The other disc spaces appear preserved. The Sacro-Iliac joints appear unremarkable. Radiologist's Impression: Mild degenerative changes L1-2 disc space. EXPL[address]ION from Dr. Francois: Other than mild degenerative (arthritic type) changes at the very top of the lumbar spine (L1-2 disc space, which is approximately at your waist level) the lumbar spine appeared normal on these x-rays. 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 Chest otherwise unremarkable. No calcified pleural plaque identified on this plain film examination. Lungs are clear without infiltrate or pleural effusion. Heart size and pulmonary vascularity within normal limits. No comparison exam. EXPLANTION from Dr. Francois: This is normal chest x-ray that documents a normal variant called as *azygos lobe (see footnote below). There were not signs noted attributed to asbestos exposure. ======= ======= *What is an azygos lobe? An azygos lobe is a normal variant that develops when a laterally displaced azygos vein creates a deep pleural fissure into the apical segment of the right upper lobe during embryological development [1-2]. References [1] radiopaedia.org [2] https://radiopaedia.org ? articles ? azygos-lob ====== If you have questions for me, please call or email. For administrative, toxic exposure screening or scheduling issues please contact the Soil Conservation Aide, Lidia, or Onelia. [facility]elia manages toxic exposure screening and registry exam scheduling. Dr. Francois --- Dr. Francois Soil Conservation Aide - Lidia Soil Conservation Aide - Soil Conservation Aide [employer] Licensee [employer] Email: Sincerely, Vadim FRANCOIS M.D. C&P Staff Physician [facility] May 15, 2023 12:14 PM LETTERS: LOCAL TITLE: FOLLOW UP RESULTS LETTER STANDARD TITLE: LETTERS DATE OF NOTE: MAY 15, 2023@12:14 ENTRY DATE: MAY 15, 2023@12:14:32 AUTHOR: VADIM FRANCOIS EXP COSIGNER: URGENCY: STATUS: COMPLETED [facility] [address] [place] [address] Apr AFTAB ALCALA LILI [address] [facility] [id number] Dear : REGISTRY EXAMS You completed your registry exams on May 15, 2023. This helps to serve you and others who are concerned about health problems that may have resulted from service. REFERRALS I have written referrals for you as follows: Referral to Pulmonary Clinic for shortness of breath and wheezing Referral to Sleep Clinic for sleep study for sleep apnea as cause for fatigue Referral to GI Clinic for diarrhea Referral to Urology Clinic for frequency of urination and overactive bladder Referral to Radiology for knee & back x-rays due to chronic pain Referral to Radiology for x-rays of your lungs because of asbestos exposure KIMO Cartwright will call you to schedule your x-rays. CLINIC SCHEDULERS Each of the other clinics will call you to schedule your appointment with them. If they are unable to reach you, then they will send a hard copy letter to you in the [place] mail. FOLLOW UP with YOUR PCM I recommend follow up with your primary pet care assistant for: 1. H/O stuff nose in a.m. and mucus in back of throat daily 2. CP in lower rib cage now and then 3. Lactose intolerance 4. Painful knees 5. Stiff sore back FU 6. Chronic severe fatigue lasting longer than 3 months 7. Tempromadibular joint pain 8. Toe nail fungus FOLLOW UP WITH MENTAL HEALTH PROVIDER FOR -Depression -Anxiety -Short term memory issues -Possible PTSD -Depression -Anxiety CLAIMS This exam does not start a claim for VA benefits. If you wish to file, do this through a Temporary Staff Accountant [VSO, [facility] VSO [CVSO], or online or at the [facility]: [place] ADDRESS [address] [address] [place] PHONE QUESTIONS If you have administrative questions, please contact Lidia: . PACT ACT The PACT Act of November 2021 added more than 20 burn pit and other toxic exposure presumptive conditions from the War. This expands benefits for [place] War era and post-12/30 Veterans. Below are the current presumptively service-connected diagnoses. PRESUMPTIVE CANCERS Brain cancer Gastrointestinal cancer of any type Glioblastoma Head cancer of any type Kidney cancer Lymphatic cancer of any type Lymphoma of any type Melanoma Neck cancer of any type Pancreatic cancer Reproductive cancer of any type Respiratory (breathing-related) cancer of any type PRESUMPTIVE ILLNESSES Asthma diagnosed after service Chronic bronchitis Chronic obstructive pulmonary disease (COPD) Chronic rhinitis Chronic sinusitis Constrictive bronchiolitis or obliterative bronchiolitis Emphysema Granulomatous disease Interstitial lung disease (ILD) Pleuritis Pulmonary fibrosis Sarcoidosis REGISTRY ENTRIES You will get updates from the [place] when there is new information. There are also annual updates that will be sent to you now that you are registered GULF WAR WEBSITE Below is the VA address for their War website: [email or web address]. ov/exposures/gulf/ WRIISC The War Related Illness and Injury Study Center (WRIISC) is a national program dedicated to Veterans' post-deployment health concerns and unique health care needs. They develop and provide post-deployment health expertise to Veterans and their health care providers through clinical care, research, education, and risk communication. As a tertiary care center, they partner with referring providers and their health care teams to support the care of Veterans. The WRIISC is part of [place]'s [place] De[place] Health Services and is a VA Delivered Core Service. Their work is fundamental to the VA's mission. If you wish to be seen at the [facility] you must: 1-Be referred by your physician through the VA. 2-Exhaust all treatments available locally. 3-Enroll for health care in the VA medical system. 4-Be accepted by the [facility] for the referral. URL link to the IISC website: https://www.[facility].pr.gov/ THANKS Thank you for your service to this country and for taking part in the registry exam process. QUESTIONS If you have questions for me, please call or email. Dr. Francois --- Dr. Francois Soil Conservation Aide - Lidia Cartwright Soil Conservation Aide - Soil Conservation Aide Email: Sincerely, Vadim FRANCOIS M.D. C&P Staff Physician VADIM FRANCOIS [facility] May 15, 2023 11:33 AM FRANCISCA RENEE LARISSA TRY C & P EXAMINATION CONSULT: LOCAL TITLE: GULF WAR REGISTRY EXAMINATION STANDARD TITLE: MALAY GULF REGISTRY C & P EXAMINATION CONSULT DATE OF NOTE: MAY 15, 2023@11:33 ENTRY DATE: MAY 15, 2023@11:33:36 AUTHOR: VADIM FRANCOIS EXP COSIGNER: URGENCY: STATUS: COMPLETED DURATION of VISIT: 45 minutes PREPARATION/DOCUMENT REVIEW:--------- 79 minutes IDENTIFICATION ID by Full Name, SSAN last four, found in CPRS INITIAL CONTACT INFORMATION Verbal consent for virtual interview: yes Emergency number in CPRS: yes [place] may opt for an IRL exam at a later date yes Confirmed location address: yes Phone number confirmed for disconnection: yes Confirmed emergency contact phone number: yes Environment survey: yes Identified participants: yes REGISTRY EXAM PURPOSES Monitor the health. Learn more about exposures Document exposures and health concerns. Understand health effects of airborne hazards and open burn pit exposures. Deidentified: data is pooled for analysis. A. HISTORY Reason for visit in patient's own words: - I am on this Doximity call to complete my [place] [facility] registry exams today. - PRESUMPTION The Department of Defense (DoD) has provided [place] with authoritative data that verifies the named below had service that constitutes presumptive toxic exposure per 38 U.S.C. ?1119. Note: The information below was provided by [facility] via the VA/DoD Identity Repository (VADIR). Information received from VADIR should be considered the equivalent of information from the 's official personnel file and is acceptable for verification of service information for VA purposes. The information below is not intended to represent an exhaustive listing of the Willington's ?1119 qualifying service. The information is provided solely to establish the fact that the Willington has at least one qualifying deployment that satisfies the criteria for presumptive toxic exposure per 38 U.S.C ? 1119. The Department of Defense ([facility]) has provided [place] with authoritative data that verifies the Willington named below meets the definition of a [place] Willing[place] as specified by 38 U.S.C ?1117. 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 THAN MOS: NO NON-SMOKER OTHER EXPOSURES Dust storms Sand storms Jet Fuel AFFF [firefighting foam] Asbestos Malaria EXPOSURES Y = Yes No = No U = Unknown 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 N Smoke from oil well fires U Smoke from tent heater fumes Y Diesel and/or other petrochemical fumes Y Passive tobacco smoke from others Y Exposures to burning trash/feces Y Skin exposures to diesel or other petrochemical substances U CARC (Chemical Agent Resistant Compound) U Other paints and/or solvents and/or petrochemical substances U Depleted Uranium (DU) U Microwaves N Personal pesticide use, including creams, sprays, flea collars, permethrin N Nerve gas or other nerve agents N Drug (pyridostigmine) used to protect against nerve agents N Mustard gas or other agents N Ate or drank food contaminated with smoke, oil, or another chemical N Ate food other than provided by the Armed Forces N Bathed in or drank water contaminated with smoke or another chemical N Bathed in water other than provided by the Armed Forces Y Immunization against anthrax N Immunization against botulism Y Other exposures SEE BELOW N At [facility] in [facility] between July and February 2003 EXPERIENCES NONE Combat Patrols/Dangerous Duties NONE Under enemy fire/SCUDS NONE Percentage MARQUISE or WIA or ALFREDITO NONE See someone hit by rounds NONE Imminent danger injured or UNK Chemical alarms witnessed CURRENT HEALTH Slight impairment of function After GW did not answer WORK DAYS LOST NONE KIDS None SUMMARY H/O stuff nose in a.m. and mucus in back of throat daily FU w/ PMC Wheezing when running not seen by Pulmonary CESPEDES not seen by Pulmonary CP in lower rib cage now and then FU w/ PMC Lactose intolerance FU w/ PMC Diarrhea constant issues not diagnosed with IBS but not seen by GI FU w/ PMC Frequent urination and overactive bladder Urology Referral Painful knees FU w/ PMC Stiff sore backFU w/ PMC Chronic severe fatigue lasting longer than 3 months FU w/ PMC Wakes up throughout night and no sleep study done Sleep Study ordered then FU w/ PMC Depression Anxiety ADHD was ruled out. Has not been tested. Memory is short and often day dreams. 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 Possible PTSD (?). Not sure if diagnosed. Sees therapist for mental and is going well for him. SI stopped 8 months after ETS ok now. Follows w/ private provider Short Term Memory Issues Follows w/ private provider Social Phobia Follows w/ private provider Adjustment Disorder with depressed mood Follows w/ private provider Depressive D/O Follows w/ private provider TMJ D/O FU w/ PMC Tinea Unguium FU w/ PMC ASSESSMENT/PLAN: The has agreed to or with the following: [1] Pulmonary Referral for CESPEDES wheezing [2] Sleep Study ordered for disrupted sleep daytime severe fatigue [3] Regular FU with PCP [4] No physical exam as this was a phone visit [5] Last annual exam on04/15/2022 used in lieu of IRL PE today [6] Has my phone number and my email for questions [7] Has phone number 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 C&P Staff Physician Signed: 05/15/2023 11:38 VADIM FRANCOIS [facility] May 15, 2023 10:19 AM [employer] LARISSA TRY E & M NOTE: LOCAL TITLE: [place] [facility] REGISTRY ASSESSME STANDARD TITLE: [employer] REGISTRY E & M NOTE DATE OF NOTE: MAY 15, 2023@10:19 ENTRY DATE: MAY 15, 2023@10:19:55 AUTHOR: VADIM FRANCOIS EXP COSIGNER: URGENCY: STATUS: COMPLETED MODULE 1: INTRODUCTION AND TELEHEALTH Type of exam conducted today: Combination AHOBPR exam *and* one or more of the following: [place] Registry PRIVACY: Reviewed Privacy Act Statement and educated that no individual identifying information will be shared with any third parties outside the [place] without the [place]'s consent. The was also advised that only non-identifiable data is used to assess conditions affecting deployed groups of Veterans. PURPOSE OF EXAM: The was advised that registry exams are limited to diagnostic and research purposes only. Treatment: Veterans with any treatment questions or concerns were encouraged to contact their primary care provider. Disability: Veterans with disability claims or questions were encouraged to contact the [employer] at or online at www.va.gov/disability. PCP name and phone number: Primary Care Provider: CAROLYNE HAYES PHONE:[phone] PAGER:[phone] Appointment was a Telehealth CVT/VVC visit. VVC appointment information: C - Consent: The was notified of the right to decline telehealth services and the availability of other options. The consented to be seen via CVT/VVC. A - Address: Obtained or verified 's address for this appointment. Patient location during visit: Home [address] [address] P - Phone Numbers: - Pre-validate address if e911 is available - If e911 service is not available, get local police, broadcast correspondent or other emergency contact numbers from the Willington. If does not know contact emergency contact numbers, you will need to use Emergency Call [facility] Center at [phone]. - The Willington confirms the location is safe and private for the visit. Patient home phone - Others are in the home or local area who may be contacted in an urgent situation Others present at this appointment with the Willington's consent (caregiver, family member, other): BROTHER IN LAW UPSTAIRS ASLEEP EMERGENCY PLAN In the event of an emergency, the or family may call emergency services, if capable. The telehealth clinician will remain in the virtual medical room until emergency response arrives and handoff to emergency services is complete. If the is unable to make an emergency call, the telehealth clinician should follow the process outlined in the CAPS LOCK section. VETERANS CRISIS LINE: press 1 or [phone] and press 1. [employer] Help Desk ([facility]): [phone] Verified telehealth clinician's contact information for this appointment: VADIM FRANCOIS If any connectivity issues are encountered, the visit will be changed to a telephone visit. MODULE 2: DEPLOYMENT HISTORY AND EXPOSURES Deployment history reviewed and discussed with : REVIEWED Deployment history reviewed in [employer] ([employer]). 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 (An open burn pit is defined as an area of land that is designated by the [employer] of [employer] to be used for disposing solid waste by burning in the outdoor air and does not contain a commercially manufactured incinerator or other equipment specifically designed and manufactured for the burning of solid waste.) Details: Sand, dust, and particulate matter. Details: Fuel, aircraft exhaust, and other mechanical fumes. Details: Perez-specific environmental exposures Other Details: AFFF Exposures associated with duties Aqueous Film Forming Foam (AFFF). 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 Details: JULIA DORM WAS ASBESTOS CONTAINING AND BROKE DOWN MORTON AND DID NOT HAVE PE. Fuels Details: Jet Fuel Per- and Polyfluoroalkyl Substances (PFAS). Details: AFFF contaminants MODULE 3: COMBINED CHIEF COMPLAINT/HPI/ROS Chief complaint/Willington concern(s): HERE FOR RE. Reviewed pre-encounter nursing documentation from Apr. Details: see HC Reported Symptoms: Runny nose/postnasal drip for more than 3 weeks. Details: GETS STUFFY NOSE IN A.M. AND MUCOUS IN BACK OF THROAT ALL YEAR ROUND Wheezing or whistling in the chest. Details: OCCURS WITH RUNNING HARD Shortness of breath or breathlessness. Details: OCCURS AT WORK NOW AND THEN Heart problem Palpitations Details: NOTED ON BLOOD DONATION EKG AND RANDOMLY AT [facility] Chest pain, chest discomfort, or chest tightness. Details: LOWER RIB CAGE ON INSPIRATION GOES AWAY WITH 2-3 BREATHS Pain or difficulty with swallowing. Details: LACTOSE INTOLERANCE MAKES IT HARD TO SWALLOW Gastrointestinal problem. Chronic diarrhea for more than 3 weeks. Details: Rx Immodium Urinary problem. Other Details: Frequent urination and overactive bladder Fertility or reproductive problems. Other Details: UNKNOWN Muscle or joint pain Other Details: Painful kneesStiff sore back Chronic severe fatigue lasting longer than 3 months. Details: [place] this all the time since ETS from [facility] Chronic sleep disturbances. Details: wakes up all through the night Loud snoring or witnessed apnea. Details: some snoring now and then Mental health problem. Details: Depression Anxiety ADHD was ruled out. Has not been tested. Memory is short and often day dreams. 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 Possible PTSD (?). Not sure if diagnosed. Sees therapist for mental and is going well for him. SI stopped 8 months after ETS ok now. MODULE 4: ALLERGIES/MEDICATIONS/PROBLE M LIST/PAST MEDICAL HISTORY Allergies reviewed in CPRS. Comment: NKDA Active Medications: Active Outpatient Medications (including Supplies): BUPROPION HCL 300MG 24HR SA TAB TAKE ONE TABLET BY MOUTH ACTIVE EVERY MORNING FOR MOOD CITALOPRAM HYDROBROMIDE 20MG TAB TAKE ONE TABLET BY MOUTH ACTIVE EVERY DAY FOR ANXIETY HYDROXYZINE HCL 25MG TAB TAKE ONE TABLET BY MOUTH AT ACTIVE BEDTIME FOR SLEEP LACTASE 3000 UNT TAB TAKE ONE TABLET BY MOUTH FOUR TIMES A ACTIVE DAY NEEDED FOR LACTOSE INTOLERANCE LOPERAMIDE HCL 2MG CAP TAKE ONE CAPSULE BY MOUTH THREE ACTIVE TIMES A DAY NEEDED FOR DIARRHEA Non-VA DIPHENHYDRAMINE HCL 25MG CAP 25MG MOUTH EVERY DAY ACTIVE NEEDED Non-VA LORATADINE 10MG TAB 10MG MOUTH EVERY DAY NEEDED ACTIVE Medication list reviewed in CPRS. NOTE: This list does not reflect any updates made to the problem list during today's appointment. Please refer to the assessment section in module 7 for additional diagnoses. 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 Yes Substances: Willington denies current or prior tobacco, alcohol, marijuana, and illicit substance use. Alcohol Details: rare Illicits Details: None MODULE 6: PHYSICAL EXAM A previous physical exam of record was reviewed. Date of previous exam: 11/28/2023 A physical exam was not reviewed or performed for this encounter. Pertinent medical records reviewed. 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 and mucus in back of throat daily RESPIRATORY: Shortness of Breath R06.02 Add to Problem List Comment: CESPEDES Wheezing R06.2 Comment: Wheezing when running not seen by Pulmonary CARDIOVASCULAR: Palpitations R00.2 Add to Problem List Comment: NOS GI: Diarrhea, Unspecified R19.7 Add to Problem List Comment: Constant issue /HYDRAULIC MINER BLASTING: Other: Frequent urination and overactive bladder RHEUM/MSK (other than osteoarthritis or mechanical/traumatic injuries): Other: CHRONIC KNEES AND BACK PAIN AND STIFFNESS AND TMJ D/O DERM: Other: Tinea Unguium COGNITIVE/MEMORY: Other: SHORT TERM MEMORY ISSUES PSYCH: Adjustment disorder, Unspecified F43.20 Add to Problem List Comment: WITH DEPRESSED MOOD Other: DEPRESSION, ANXIETY, SOCIAL PHOBIA ADJUSTMENT D/O W/ DEPRESSED MOOD The was advised to follow up with his/her Primary Care Provider for treatment and/or additional evaluation of the following conditions / concerns. He/she voiced agreement with this plan. SUMMARY H/O stuff nose in a.m. and mucus in back of throat daily FU W/ PCM Wheezing when running not seen by Pulmonary PULMONARY REFERRAL CESPEDES not seen by Pulmonary PULMONARY REFFERAL CP in lower rib cage now and then FU PCM Lactose intolerance FU PCM Diarrhea constant issues not diagnosed with IBS but not seen by GI FU PCM Frequent urination and overactive bladder FU PCM Painful knees FU PCM Stiff sore back FU PCM Chronic severe fatigue lasting longer than 3 months FU PCM Wakes up throughout night and no sleep study done SLEEP STUDY ORDERED FU PRIVATE PROVIDER: Depression Anxiety ADHD was ruled out. Has not been tested. Memory is short and often day dreams. 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 Possible PTSD (?). Not sure if diagnosed. Sees therapist for mental and is going well for him. SI stopped 8 months after ETS ok now. FU PRIVATE PROVIDER: Short Term Memory Issues Social Phobia Adjustment Disorder with depressed mood Depressive D/O The Willington was informed that a follow-up letter will be sent within 2 weeks of the registry evaluation with additional letters to follow if there are pending test results at that time. was advised to contact VADIM FRANCOIS if they have additional questions or do not receive a letter. /bhupendra/ VADIM FRANCOIS M.D. C&P Staff Physician Signed: 05/15/2023 11:33 VADIM FRANCOIS [facility]
--- OUTSIDE RECORDS SUMMARY | 2023-08-13 20:16 | XMS_ITS | Continuity of Care Document ---
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 It does not include entries that were removed or entered in error. Problem Status Onset Date Problem Type Date of Resolution Comments Source Acne (ICD-9-CM 706.1) Active Condition [facility] Adjustment disorder (SNOMED CT 33827864) Active Condition May 15, 2023 Entered By: CAROLINA FRANCOIS Comment: WITH DEPRESSED MOOD [facility] Adjustment disorder with depressed mood Active Condition [facility] Air pollution (SNOMED CT 521002227) Active Condition [facility] Depression Active Condition [facility] Diarrhea (SNOMED CT 16726360) Active Condition May 15, 2023 Entered By: CAROLINA FRANCOIS Comment: Constant issue [facility] Exposed to noise (SNOMED CT 1074741) Active Condition May 15, 2023 Entered By: CAROLINA FRANCOIS Comment: Acoustical Trauma [facility] Exposed to tobacco smoke at work (SNOMED CT 034953245) Active Condition May 15, 2023 Entered By: CAROLINA FRANCOIS Comment: Passive smoke [facility] Exposure to aromatic benzene (SNOMED CT 950480041735565) Active Condition May 15 Entered By: CAROLINA FRANCOIS Comment: JET FUEL contaminant [facility] Exposure to asbestos (SNOMED CT 761553248) Active Condition May 15, 2023 Entered By: CAROLINA FRANCOIS Comment: In Dorm in [place] [facility] Exposure to hazardous metal Active Condition Jun 03, 2023 Entered By: CAROLINA FRANCOIS Comment: 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[facility]) [facility] Exposure to potentially hazardous substance Active Condition [facility] Finding of frequency of urination Active Condition [facility] History of palpitations (SNOMED CT 444605515) Active Condition May 15, 2023 Entered By: CAROLINA FRANCOIS Comment: NOS [facility] 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 Tinea Unguium Active Condition [facility] Wheezing Active Condition May 15 Entered By: CAROLINA FRANCOIS Comment: Wheezing when running not seen by Pulmonary [facility] visit for: services physical separation Inactive Condition SEPARATION PHYSICAL. DD FORM 0547 COMPLETED AND PLACED IN CHART. [facility] visit for: services flight physical Inactive Condition [facility] Patient Education Dietary Inactive Condition [facility] Guidance: Concerns About Tobacco Use Inactive Condition [facility] Guidance: Concerns About Alcohol Use Inactive Condition [facility] visit for: occupational health / fitness exam Inactive Condition [facility] Diagnosis: ICD-10-CM W54.0XXA Bitten by dog, initial encounter Active Diagnosis [facility] Diagnosis: ICD-10-CM R19.7 Diarrhea, unspecified Active Diagnosis [facility] Diagnosis: ICD-10-CM J45.998 Other asthma Active Diagnosis [facility] Diagnosis: ICD-10-CM J45.909 Unspecified asthma, uncomplicated Active Diagnosis [facility] Diagnosis: ICD-10-CM J45.990 Exercise induced bronchospasm Active Diagnosis [facility] Diagnosis: ICD-10-CM Z77.9 Oth contact w and (suspected) exposures hazardous to health Active Diagnosis [facility] Diagnosis: ICD-10-CM F33.8 Other recurrent depressive disorders Active Diagnosis [facility] Diagnosis: ICD-10-CM R35.0 Frequency of micturition Active Diagnosis [facility] Diagnosis: ICD-10-CM Z77.29 Contact with and exposure to other hazardous substances Active Diagnosis [facility] Diagnosis: ICD-10-CM Z02.89 Encounter for other administrative examinations Active [facility] Diagnosis: ICD-10-CM K58.0 Irritable bowel syndrome with diarrhea Active Diagnosis [facility] Diagnosis: ICD-10-CM F41.9 Anxiety disorder, unspecified Active Diagnosis [facility] Diagnosis: ICD-10-CM R41.89 Oth symptoms and signs w cognitive functions and awareness Active Diagnosis [facility] Medications Combined list of outpatient medications from Department of Defense and [facility] Affairs facilities.Medications provided include 1) outpatient medications from the last 15 months, and 2) patient-reported medications. Medication Details Route Status Patient Instructions Prescription Expires Prescription Number Last Dispense Date Ordering Provider Order Date Order Qty Source AMOXICILLIN TRIHYDRATE 875MG/CLAVU LANATE K 125MG TAB TAKE 1 TABLET BY MOUTH TWICE A DAY UNTIL GONE FOR DOG BITE ORALLY ACTIVE 08/21/2023 [id number] KATHY CARTER R 2023 10 [facility] BISACODYL 5MG TAB,EC TAKE TWO TABLETS BY MOUTH ONCE FOR COLON PREP ORALLY ACTIVE 08/16/2023 [id number] KINGA ESPINO R 2023 2 [facility] BUDESONIDE 160MCG/FORM OTEROL FUM 4.5MCG/SPRA Y INHL,ORAL,1 0.2GM INHALE 1 PUFF BY INHALATI ON NEEDED FOR SHORTNES S OF BREATH - MAX 12 PUFFS DAILY ### INHALA TION ACTIVE 06/26/2024 [id number] YNES ANTOINE 2023 2 [facility] BUPROPION HCL 300MG 24HR TAB,SA TAKE ONE TABLET BY MOUTH EVERY MORNING FOR MOOD ORALLY ACTIVE 12/27/2023 [id number] TRAUT,RUSSELL HARD L 2022 90 [facility] BUPROPION HCL 300MG 24HR TAB,SA TAKE ONE TABLET BY MOUTH EVERY MORNING FOR MOOD ORALLY DISCONT INUED 08/21/2023 [id number] TRAUT,RUSSELL HARD L 2022 90 [facility] CITALOPRAM HYDROBROMID E 10MG TAB TAKE ONE TABLET BY MOUTH EVERY DAY FOR ANXIETY ORALLY DISCONT INUED (EDIT) 10/02/2023 [id number] TRAUT,RUSSELL HARD L 2022 90 [facility] CITALOPRAM HYDROBROMID E 20MG TAB TAKE ONE AND ONE-HALF TABLETS BY MOUTH EVERY DAY FOR ANXIETY ORALLY ACTIVE 06/12/2024 [id number] CAROLYNE HAYES Melvin 2023 135 [facility] CITALOPRAM HYDROBROMID E 20MG TAB TAKE ONE TABLET BY MOUTH EVERY DAY FOR ANXIETY ORALLY DISCONT INUED (EDIT) 12/27/2023 [id number] TRAUT,RUSSELL HARD L 2022 90 [facility] CITALOPRAM HYDROBROMID E 20MG TAB TAKE ONE TABLET BY MOUTH EVERY DAY FOR ANXIETY ORALLY DISCONT INUED 03/02/2023 [id number] CAROLYNE HAYES Melvin 2022 90 [facility] DIPHENHYDRA MINE HCL 25MG CAP TAKE 1 CAPSULE BY MOUTH EVERY DAY NEEDED ORALLY ACTIVE TRAUT,RUSSELL HARD L 2019 [facility] HYDROXYZINE HCL 25MG TAB TAKE ONE TABLET BY MOUTH AT BEDTIME FOR SLEEP ORALLY ACTIVE 12/27/2023 [id number] TRAUT,RUSSELL HARD L 2022 90 [facility] HYDROXYZINE HCL 25MG TAB TAKE ONE TABLET BY MOUTH AT BEDTIME FOR SLEEP ORALLY DISCONT INUED 08/21/2023 [id number] TRAUT,RUSSELL HARD L 2022 90 [facility] IBUPROFEN 800MG TAB TAKE ONE TABLET BY MOUTH EVERY 8 HOURS FOR PAIN ORALLY ACTIVE 08/21/2023 [id number] KATHY CARTER 2023 15 [facility] LACTASE 3000UNT TAB TAKE ONE TABLET BY MOUTH FOUR TIMES A DAY NEEDED FOR LACTOSE INTOLERA NCE ORALLY ACTIVE 12/27/2023 [id number] TRAUT,RUSSELL HARD L 2022 120 [facility] LOPERAMIDE HCL 2MG CAP TAKE ONE CAPSULE BY MOUTH THREE TIMES A DAY NEEDED FOR DIARRHEA ORALLY ACTIVE 12/27/2023 [id number] 4 TRAUT,RUSSELL HARD L 2022 90 [facility] LOPERAMIDE HCL 2MG CAP TAKE ONE CAPSULE BY MOUTH THREE TIMES A DAY NEEDED FOR DIARRHEA ORALLY DISCONT INUED 08/21/2023 [id number] TRARUSSELL LAZARO L 2022 90 [facility] LORATADINE 10MG TAB TAKE ONE TABLET BY MOUTH EVERY DAY NEEDED ORALLY ACTIVE TRARUSSELL LAZARO HARD L 2022 [facility] PEG-3350/EL ECTROLYTES PWDR TAKE ONE CONTAINE R BY MOUTH DIRECTED FOR COLON PREP ORALLY ACTIVE 08/16/2023 [id number] KINGA ESPINO Xin 2023 1 [facility] SILDENAFIL CITRATE 100MG TAB TAKE ONE TABLET BY MOUTH ONCE NEEDED FOR ERECTILE DYSFUNCT ION ORALLY ACTIVE 06/12/2024 [id number] 4 ABIGAILSARAHICAROLYNE Melvin 2023 18 [facility] Allergies, Adverse Reactions, Alerts Combined list of allergies from Department of Defense and Veterans Affairs facilities. It does not include entries that were removed or entered in error. Substance Category Reaction Severity Reaction type Status Date Reported Comments Source NO OUTPUT FOR NCID [id number] Drug allergy (disorder) active 05/12/2007 [facility] Immunizations Combined list of available immunizations from the Department of Defense and Veterans Affairs facilities. Immunization Series Date Given Administered By Site Reaction Lot Number CVX Code Drug Tumbler Drier Operator Status Comments Source TDAP 2023 BREANN BECKFORD LEFT DELTO ID [id number] 115 complet ed [facility] COVID-19 (PFIZER), MRNA, LNP-S, PF, JERRI-SUCROSE, 30 MCG/0.3 ML (AGES 12+ YEARS) 1 2023 CYNTHIA PICHARDO LEFT DELTO ID [id number] 309 complet ed [facility] INFLUENZA, UNSPECIFIED FORMULATION 2022 88 complet ed [facility] COVID-19 (PFIZER), MRNA, LNP-S, PF, 30 MCG/0.3 ML DOSE 3 2020 208 complet ed PFR; [id number]; 2 [facility] INFLUENZA, UNSPECIFIED FORMULATION 2020 88 complet ed [facility] COVID-19 (PFIZER), MRNA, LNP-S, PF, 30 MCG/0.3 ML DOSE 2 2020 208 complet ed PFR; [id number]; 1 [facility] COVID-19 (PFIZER), MRNA, LNP-S, PF, 30 MCG/0.3 ML DOSE 1 2020 208 complet ed PFR; [id number]; 1 [facility] TDAP 2016 115 complet ed [employer]LA[employer]SM[employer] HKLINE,X9 94C,09/05 [facility] INFLUENZA, UNSPECIFIED FORMULATION 2013 88 complet ed [facility] INFLUENZA, UNSPECIFIED FORMULATION 2012 88 complet ed [facility] anthrax vaccine 6 2006 [id number] 24 [facility] ([facility]) complet ed anthrax vaccine DoD influenza virus vaccine, split virus (incl. purified surface antigen)-reti red CODE 1 2005 [id number] 15 San[employer]i Pasteur ([facility]) complet ed influenza virus vaccine, split virus (incl. purified surface antigen)- retired CODE DoD anthrax vaccine 5 2005 [id number] 24 [facility]) complet ed anthrax vaccine DoD typhoid Vi capsular polysaccharid e vaccine 1 2005 [id number] Sanofi Pasteur ([facility]) complet ed typhoid Vi capsular polysacch aride vaccine DoD yellow fever vaccine 1 2005 [id number] [employer] ([facility]) complet ed yellow fever vaccine DoD influenza virus vaccine, split virus (incl. purified surface antigen)-reti red CODE 1 2004 [id number] 15 [employer] ([facility]) complet ed influenza virus vaccine, split virus (incl. purified surface antigen)- retired CODE DoD influenza virus vaccine, whole virus 0 2004 [id number] 16 San[employer] Pasteur ([facility]) complet ed influenza virus vaccine, whole virus DoD anthrax vaccine 4 2003 [id number] 24 [facility] ([facility]) complet ed anthrax vaccine DoD hepatitis B vaccine, adult dosage 3 [id number] [place] [address] (SKB) complet ed hepatitis B vaccine, adult dosage DoD anthrax vaccine 3 2002 [id number] [facility] ([facility]) complet ed anthrax vaccine DoD anthrax vaccine 2 2002 24 [facility] ([facility]) complet ed anthrax vaccine DoD anthrax vaccine 1 2002 [id number] [facility] ([facility]) complet ed anthrax vaccine DoD influenza virus vaccine, whole virus 0 2002 [id number] [employer] (PWJ) complet ed influenza virus vaccine, whole virus DoD vaccinia (smallpox) vaccine, diluted 0 2002 [id number] complet ed vaccinia (smallpox ) vaccine, diluted DoD hepatitis A vaccine, adult dosage 2 2002 [id number] 52 [employer] (SKB) complet ed hepatitis A vaccine, adult dosage DoD typhoid vaccine, parenteral, other than acetone-kille d, dried 0 2002 [id number] Sanofi Pasteur ([facility]) complet ed typhoid vaccine, parentera l, other than acetone-k illed, dried DoD influenza virus vaccine, whole virus 0 2001 [id number] 16 Sanofi Pasteur ([facility]) complet ed influenza virus vaccine, whole virus DoD hepatitis B vaccine, adult dosage 1 2001 [id number] Merck (MSD) complet ed hepatitis B vaccine, adult dosage DoD measles, mumps and rubella virus vaccine 0 2001 03 () Not Given measles, mumps and rubella virus vaccine DoD varicella virus vaccine 1 2001 21 () Not Given varicella virus vaccine DoD hepatitis B vaccine, adult dosage 1 2001 43 () complet ed hepatitis B vaccine, adult dosage DoD hepatitis A vaccine, adult dosage 1 2001 [id number] 52 [employer] (SKB) complet ed hepatitis A vaccine, adult dosage DoD tetanus and diphtheria toxoids, adsorbed, preservative free, for adult use (2 Lf of tetanus toxoid and 2 Lf of diphtheria toxoid) 0 2001 [id number] Sanofi Pasteur ([facility]) complet ed tetanus and diphtheri a toxoids, adsorbed, preservat rupali free, for adult use (2 Lf of tetanus toxoid and 2 Lf of diphtheri a toxoid) DoD poliovirus vaccine, inactivated 0 2001 [id number] Sanofi Pasteur ([facility]) complet ed polioviru s vaccine, inactivat ed DoD meningococcal polysaccharid e vaccine (MPSV4) 0 2001 [id number] Sanofi Pasteur ([facility]) complet ed meningoco ccal polysacch aride vaccine (MPSV4) DoD MMR 1995 03 complet ed [facility] TD (ADULT), 2 LF TETANUS TOXOID, PRESERVATIVE FREE, ADSORBED 1995 09 complet ed [facility] DTP 1988 01 complet ed [facility] POLIO, UNSPECIFIED FORMULATION 1988 89 complet ed [facility] DTP 1985 01 complet ed [facility] POLIO, UNSPECIFIED FORMULATION 1985 89 complet ed [facility] MMR 1984 03 complet ed [facility] DTP 1984 01 complet ed [facility] POLIO, UNSPECIFIED FORMULATION 1984 89 complet ed [facility] DTP 1983 01 complet ed [facility] POLIO, UNSPECIFIED FORMULATION 1983 89 complet ed [facility] DTP 1983 01 complet ed [facility] POLIO, UNSPECIFIED FORMULATION 1983 89 complet ed [facility] Results Combined list of recent chemistry, hematology and other laboratory results from Department of Defense and Veterans Affairs, ranging from 15 months to all on record, depending upon the facility. Order Name Results Value Reference Range Date Interpretation Specimen Comments Source HEMOGLOB IN A1C HEMOGLOBIN A1C/HEMOGL OBIN.TOTAL IN BLOOD 5.1 4.0 - 6.0 06/12 Specimen Type: BLOOD Comment: Values obtained from A1C measurement s can vary. For typical A1C assays, a reported value of 7.0 could actually be between 6.7 and 7.3 if measured by a reference method. A reported value of 9.0 could actually be between 8.7 and 9.3. Ref: [email or web address] Ordering Provider: DONA HAYES Report Released Date/Time: Jun 12, 2023 12:34 PM Reporting Lab: [facility] [phone] Performing Lab: [facility] [address] [facility] ANTI-HEP C(EIA) HEPATITIS C VIRUS AB [PRESENCE] IN SERUM NEGATIVE 06/12 Specimen Type: SERUM No comment entered. Ordering Provider: DONA HAYES Report Released Date/Time: Jun 12, 2023 12:34 PM Reporting Lab: [facility] [phone] Performing Lab: [facility] [phone] [facility] HIV AG/AB SCREEN HIV 1+2 AB+HIV1 P24 AG [PRESENCE] IN SERUM OR PLASMA BY IMMUNOASSA Y NEGATIVE 06/12 Specimen Type: SERUM No comment entered. Ordering Provider: DONA HAYES Report Released Date/Time: Jun 12, 2023 12:34 PM Reporting Lab: [facility] [phone] Performing Lab: [facility] [phone] [facility] TSH W/REFLEX TO FREE T4 THYROTROPI N [UNITS/VOL UME] IN SERUM OR PLASMA 0.45 0.35 - 4.94 06/12 Specimen Type: PLASMA No comment entered. Ordering Provider: DONA HAYES Report Released Date/Time: Jun 12, 2023 12:34 PM Reporting Lab: [facility] [phone] Performing Lab: [facility] [address] [facility] ELP/IMMF IX,SERUM PANEL PROTEIN [MASS/VOLU ME] IN SERUM OR PLASMA 6.9 6.0 - 8.3 06/12 Specimen Type: SERUM Comment: Values obtained from A1C measurement s can vary. For typical A1C assays, a reported value of 7.0 could actually be between 6.7 and 7.3 if measured by a reference method. A reported value of 9.0 could actually be between 8.7 and 9.3. Ref: [email or web address] Ordering Provider: DONA HAYES Report Released Date/Time: Jun 12, 2023 12:34 PM Reporting Lab: [facility] [phone] Performing Lab: [facility] [phone] [facility] ELP/IMMF IX,SERUM PANEL ALBUMIN [MASS/VOLU ME] IN SERUM OR PLASMA BY ELECTROPHO RESIS 4.57 3.66 - 4.78 06/12 Specimen Type: SERUM Comment: Values obtained from A1C measurement s can vary. For typical A1C assays, a reported value of 7.0 could actually be between 6.7 and 7.3 if measured by a reference method. A reported value of 9.0 could actually be between 8.7 and 9.3. Ref: [email or web address] Ordering Provider: DONA HAYES Report Released Date/Time: Jun 12, 2023 12:34 PM Reporting Lab: [facility] [address] Performing Lab: [facility] [address] [facility] ELP/IMMF IX,SERUM PANEL ALPHA 1 GLOBULIN [MASS/VOLU ME] IN SERUM OR PLASMA BY ELECTROPHO RESIS 0.25 0.14 - 0.38 06/12 Specimen Type: SERUM Comment: Values obtained from A1C measurement s can vary. For typical A1C assays, a reported value of 7.0 could actually be between 6.7 and 7.3 if measured by a reference method. A reported value of 9.0 could actually be between 8.7 and 9.3. Ref: [email or web address] Ordering Provider: DONA HAYES Report Released Date/Time: Jun 12, 2023 12:34 PM Reporting Lab: [facility] [phone] Performing Lab: [facility] [phone] [place] [facility] ELP/IMMF IX,SERUM PANEL ALPHA 2 GLOBULIN [MASS/VOLU ME] IN SERUM OR PLASMA BY ELECTROPHO RESIS 0.61 0.50 - 0.90 06/12 Specimen Type: SERUM Comment: Values obtained from A1C measurement s can vary. For typical A1C assays, a reported value of 7.0 could actually be between 6.7 and 7.3 if measured by a reference method. A reported value of 9.0 could actually be between 8.7 and 9.3. Ref: [email or web address] Ordering Provider: DONA HAYES Report Released Date/Time: Jun 12, 2023 12:34 PM Reporting Lab: [place] [phone] Performing Lab: [place] [address] [facility] ELP/IMMF IX,SERUM PANEL BETA 1 GLOBULIN [MASS/VOLU ME] IN SERUM OR PLASMA BY ELECTROPHO RESIS 0.39 0.33 - 0.55 06/12 Specimen Type: SERUM Comment: Values obtained from A1C measurement s can vary. For typical A1C assays, a reported value of 7.0 could actually be between 6.7 and 7.3 if measured by a reference method. A reported value of 9.0 could actually be between 8.7 and 9.3. Ref: [email or web address] Ordering Provider: DONA HAYES Report Released Date/Time: Jun 12, 2023 12:34 PM Reporting Lab: [facility] [phone] Performing Lab: [facility] [phone] [facility] ELP/IMMF IX,SERUM PANEL BETA 2 GLOBULIN [MASS/VOLU ME] IN SERUM OR PLASMA BY ELECTROPHO RESIS 0.23 0.20 - 0.52 06/12 Specimen Type: SERUM Comment: Values obtained from A1C measurement s can vary. For typical A1C assays, a reported value of 7.0 could actually be between 6.7 and 7.3 if measured by a reference method. A reported value of 9.0 could actually be between 8.7 and 9.3. Ref: [email or web address]://[email or web address] Ordering Provider: DONA AHYES Report Released Date/Time: Jun 12, 2023 12:34 PM Reporting Lab: [place] [phone] Performing Lab: [place] [phone] [place] [facility] ELP/IMMF IX,SERUM PANEL GAMMA GLOBULIN [MASS/VOLU ME] IN SERUM OR PLASMA BY ELECTROPHO RESIS 0.85 0.58 - 1.72 06/12 Specimen Type: SERUM Comment: Values obtained from A1C measurement s can vary. For typical A1C assays, a reported value of 7.0 could actually be between 6.7 and 7.3 if measured by a reference method. A reported value of 9.0 could actually be between 8.7 and 9.3. Ref: [email or web address]://[email or web address] Ordering Provider: DONA HAYES Report Released Date/Time: Jun 12, 2023 12:34 PM Reporting Lab: [facility] [phone] Performing Lab: [facility] [phone] [facility] ELP/IMMF IX,SERUM PANEL PROTEIN [MASS/VOLU ME] IN SERUM OR PLASMA 6.9 6.0 - 8.3 06/12 Specimen Type: SERUM Comment: Values obtained from A1C measurement s can vary. For typical A1C assays, a reported value of 7.0 could actually be between 6.7 and 7.3 if measured by a reference method. A reported value of 9.0 could actually be between 8.7 and 9.3. Ref: [email or web address] Ordering Provider: DONA HAYES Report Released Date/Time: Jun 12, 2023 12:34 PM Reporting Lab: [facility] [phone] Performing Lab: [facility] [phone] [facility] ELP/IMMF IX,SERUM PANEL IMMUNOELEC TROPHORESI S FOR SERUM OR PLASMA NO MONOCLON ALS DETECTED 06/12 Specimen Type: SERUM Comment: Values obtained from A1C measurement s can vary. For typical A1C assays, a reported value of 7.0 could actually be between 6.7 and 7.3 if measured by a reference method. A reported value of 9.0 could actually be between 8.7 and 9.3. Ref: [email or web address] Ordering Provider: DONA HAYES Report Released Date/Time: Jun 12, 2023 12:34 PM Reporting Lab: [facility] [phone] Performing Lab: [facility] [phone] [place] [facility] IRON GROUP IRON [MASS/VOLU ME] IN SERUM OR PLASMA 120 65 - 175 06/12 Specimen Type: SERUM Comment: Values obtained from A1C measurement s can vary. For typical A1C assays, a reported value of 7.0 could actually be between 6.7 and 7.3 if measured by a reference method. A reported value of 9.0 could actually be between 8.7 and 9.3. Ref: [email or web address] Ordering Provider: DONA HAYES Report Released Date/Time: Jun 12, 2023 12:34 PM Reporting Lab: [facility] [phone] Performing Lab: [place] [phone] [place] [facility] IRON GROUP IRON BINDING CAPACITY [MASS/VOLU ME] IN SERUM OR PLASMA 313 250 - 425 06/12 Specimen Type: SERUM Comment: Values obtained from A1C measurement s can vary. For typical A1C assays, a reported value of 7.0 could actually be between 6.7 and 7.3 if measured by a reference method. A reported value of 9.0 could actually be between 8.7 and 9.3. Ref: [email or web address] Ordering Provider: DONA HAYES Report Released Date/Time: Jun 12, 2023 12:34 PM Reporting Lab: [facility] [phone] Performing Lab: [facility] [phone] [place] [facility] IRON GROUP FERRITIN [MASS/VOLU ME] IN SERUM OR PLASMA pending 06/12 Specimen Type: SERUM Comment: Values obtained from A1C measurement s can vary. For typical A1C assays, a reported value of 7.0 could actually be between 6.7 and 7.3 if measured by a reference method. A reported value of 9.0 could actually be between 8.7 and 9.3. Ref: [email or web address] Ordering Provider: DONA HAYES Report Released Date/Time: Jun 12, 2023 12:34 PM Reporting Lab: [facility] [phone] Performing Lab: [facility] [address] [place] [facility] IRON GROUP IRON SATURATION 38 20 - 50 06/12 Specimen Type: SERUM Comment: Values obtained from A1C measurement s can vary. For typical A1C assays, a reported value of 7.0 could actually be between 6.7 and 7.3 if measured by a reference method. A reported value of 9.0 could actually be between 8.7 and 9.3. Ref: http://www. ngsp.org/[place] Pdata.asp Ordering Provider: DONA HAYES Report Released Date/Time: Jun 12, 2023 12:34 PM Reporting Lab: [facility] [address] Performing Lab: [facility] [address] [place] [facility] IRON GROUP TRANSFERRI N [MASS/VOLU ME] IN SERUM OR PLASMA 250 163 - 382 06/12 Specimen Type: SERUM Comment: Values obtained from A1C measurement s can vary. For typical A1C assays, a reported value of 7.0 could actually be between 6.7 and 7.3 if measured by a reference method. A reported value of 9.0 could actually be between 8.7 and 9.3. Ref: http://www. ngsp.org/[place] Pdata.asp Ordering Provider: DONA HAYES Report Released Date/Time: Jun 12, 2023 12:34 PM Reporting Lab: [facility] [address] Performing Lab: [facility] [address] [place] [facility] VIT D 25-OH,TO WEI 25-HYDROXY VITAMIN D3 [MASS/VOLU ME] IN SERUM OR PLASMA 30 12 - 50 06/12 Specimen Type: SERUM No comment entered. Ordering Provider: DONA HAYES Report Released Date/Time: Jun 12, 2023 12:34 PM Reporting Lab: [facility] [address] Performing Lab: [facility] [address] [place] [facility] CBC & DIFF LEUKOCYTES [#/VOLUME] IN BLOOD BY AUTOMATED COUNT 5.32 4.0 - 11.0 06/12 Specimen Type: BLOOD Comment: Automated Differentia l Performed Ordering Provider: DONA HAYES Report Released Date/Time: Jun 12, 2023 12:34 PM Reporting Lab: [facility] [address] Performing Lab: [facility] [address] [place] [facility] CBC & DIFF ERYTHROCYT ES [#/VOLUME] IN BLOOD BY AUTOMATED COUNT 5.94 4.6 - 6.2 06/12 Specimen Type: BLOOD Comment: Automated Differentia l Performed Ordering Provider: DONA HAYES Report Released Date/Time: Jun 12, 2023 12:34 PM Reporting Lab: [facility] [address] Performing Lab: [facility] [address] [place] [facility] CBC & DIFF HEMOGLOBIN [MASS/VOLU ME] IN BLOOD 16.6 13.5 - 17.9 06/12 Specimen Type: BLOOD Comment: Automated Differentia l Performed Ordering Provider: DONA HAYES Report Released Date/Time: Jun 12, 2023 12:34 PM Reporting Lab: [facility] [address] Performing Lab: [facility] [address] [place] [facility] CBC & DIFF HEMATOCRIT [VOLUME FRACTION] OF BLOOD BY AUTOMATED COUNT 49.7 41 - 54 06/12 Specimen Type: BLOOD Comment: Automated Differentia l Performed Ordering Provider: DONA HAYES Report Released Date/Time: Jun 12, 2023 12:34 PM Reporting Lab: [facility] [address] Performing Lab: [facility] [address] [place] [facility] CBC & DIFF MCV [ENTITIC VOLUME] BY AUTOMATED COUNT 83.7 80 - 100 06/12 Specimen Type: BLOOD Comment: Automated Differentia l Performed Ordering Provider: DONA HAYES Report Released Date/Time: Jun 12, 2023 12:34 PM Reporting Lab: [facility] [address] Performing Lab: [facility] [address] [place] [facility] CBC & DIFF MCH [ENTITIC MASS] BY AUTOMATED COUNT 27.9 27 - 33 06/12 Specimen Type: BLOOD Comment: Automated Differentia l Performed Ordering Provider: DONA HAYES Report Released Date/Time: Jun 12, 2023 12:34 PM Reporting Lab: [facility] [address] Performing Lab: [facility] [address] [place] [facility] CBC & DIFF MCHC [MASS/VOLU ME] BY AUTOMATED COUNT 33.4 32.0 - 37.5 06/12 Specimen Type: BLOOD Comment: Automated Differentia l Performed Ordering Provider: DONA HAYES Report Released Date/Time: Jun 12, 2023 12:34 PM Reporting Lab: [facility] [address] Performing Lab: [facility] [address] [place] [facility] CBC & DIFF PLATELETS [#/VOLUME] IN BLOOD BY AUTOMATED COUNT 258 150 - 400 06/12 Specimen Type: BLOOD Comment: Automated Differentia l Performed Ordering Provider: DONA HAYES Report Released Date/Time: Jun 12, 2023 12:34 PM Reporting Lab: [facility] [address] Performing Lab: [facility] [address] [place] [facility] CBC & DIFF PLATELET MEAN VOLUME [ENTITIC VOLUME] IN BLOOD BY AUTOMATED COUNT 8.7 7.4 - 10.4 06/12 Specimen Type: BLOOD Comment: Automated Differentia l Performed Ordering Provider: DONA HAYES Report Released Date/Time: Jun 12, 2023 12:34 PM Reporting Lab: [facility] [address] Performing Lab: [facility] [address] [place] [facility] CBC & DIFF NEUTROPHIL S/100 LEUKOCYTES IN BLOOD BY MANUAL COUNT 71.7 40.0 - 80.0 06/12 Specimen Type: BLOOD Comment: Automated Differentia l Performed Ordering Provider: DONA HAYES Report Released Date/Time: Jun 12, 2023 12:34 PM Reporting Lab: [facility] [address] Performing Lab: [facility] [address] [place] [facility] CBC & DIFF LYMPHOCYTE S/100 LEUKOCYTES IN BLOOD BY MANUAL COUNT 20.3 15.0 - 45.0 06/12 Specimen Type: BLOOD Comment: Automated Differentia l Performed Ordering Provider: DONA HAYES Report Released Date/Time: Jun 12, 2023 12:34 PM Reporting Lab: [facility] [address] Performing Lab: [facility] [address] [place] [facility] CBC & DIFF MONOCYTES/ 100 LEUKOCYTES IN BLOOD BY AUTOMATED COUNT 6.4 2.0 - 12.0 06/12 Specimen Type: BLOOD Comment: Automated Differentia l Performed Ordering Provider: DONA HAYES Report Released Date/Time: Jun 12, 2023 12:34 PM Reporting Lab: [facility] [address] Performing Lab: [facility] [address] [place] [facility] CBC & DIFF EOSINOPHIL S/100 LEUKOCYTES IN BLOOD BY AUTOMATED COUNT 0.6 0.0 - 6.0 06/12 Specimen Type: BLOOD Comment: Automated Differentia l Performed Ordering Provider: DONA HAYES Report Released Date/Time: Jun 12, 2023 12:34 PM Reporting Lab: [facility] [address] Performing Lab: [facility] [address] [place] [facility] CBC & DIFF BASOPHILS/ 100 LEUKOCYTES IN BLOOD BY MANUAL COUNT 0.8 0.0 - 2.0 06/12 Specimen Type: BLOOD Comment: Automated Differentia l Performed Ordering Provider: DONA HAYES Report Released Date/Time: Jun 12, 2023 12:34 PM Reporting Lab: [facility] [address] Performing Lab: [facility] [address] [place] [facility] CBC & DIFF ERYTHROCYT E DISTRIBUTI ON WIDTH [RATIO] BY AUTOMATED COUNT 12.6 11.5 - 14.5 06/12 Specimen Type: BLOOD Comment: Automated Differentia l Performed Ordering Provider: DONA HAYES Report Released Date/Time: Jun 12, 2023 12:34 PM Reporting Lab: [facility] [address] Performing Lab: [facility] [address] [place] [facility] CBC & DIFF LYMPHOCYTE S [#/VOLUME] IN BLOOD BY AUTOMATED COUNT 1.08 1.0 - 4.0 06/12 Specimen Type: BLOOD Comment: Automated Differentia l Performed Ordering Provider: DONA HAYES Report Released Date/Time: Jun 12, 2023 12:34 PM Reporting Lab: [facility] [address] Performing Lab: [facility] [address] [place] [facility] CBC & DIFF MONOCYTES [#/VOLUME] IN BLOOD BY AUTOMATED COUNT 0.34 0.1 - 1.0 06/12 Specimen Type: BLOOD Comment: Automated Differentia l Performed Ordering Provider: DONA HAYES Report Released Date/Time: Jun 12, 2023 12:34 PM Reporting Lab: [facility] [address] Performing Lab: [facility] [address] [place] [facility] CBC & DIFF NEUTROPHIL S [#/VOLUME] IN BLOOD BY AUTOMATED COUNT 3.82 2.0 - 7.7 06/12 Specimen Type: BLOOD Comment: Automated Differentia l Performed Ordering Provider: DONA HAYES Report Released Date/Time: Jun 12, 2023 12:34 PM Reporting Lab: [facility] [address] Performing Lab: [facility] [address] [place] [facility] CBC & DIFF EOSINOPHIL S [#/VOLUME] IN BLOOD BY AUTOMATED COUNT 0.03 0 - 0.5 06/12 Specimen Type: BLOOD Comment: Automated Differentia l Performed Ordering Provider: DONA HAYES Report Released Date/Time: Jun 12, 2023 12:34 PM Reporting Lab: [facility] [address] Performing Lab: [facility] [address] [place] [facility] CBC & DIFF BASOPHILS [#/VOLUME] IN BLOOD BY AUTOMATED COUNT 0.04 0 - 0.2 06/12 Specimen Type: BLOOD Comment: Automated Differentia l Performed Ordering Provider: DONA HAYES Report Released Date/Time: Jun 12, 2023 12:34 PM Reporting Lab: [facility] [address] Performing Lab: [facility] [address] [place] [facility] CBC & DIFF IG(META,MY SHANEKA,PRO) 0.2 06/12 Specimen Type: BLOOD Comment: Automated Differentia l Performed Ordering Provider: DONA HAYES Report Released Date/Time: Jun 12, 2023 12:34 PM Reporting Lab: [facility] [address] Performing Lab: [facility] [address] [facility] CBC & DIFF IMMATURE GRANULOCYT ES [PRESENCE] IN BLOOD BY AUTOMATED COUNT 0.01 0 - 0.1 06/12 Specimen Type: BLOOD Comment: Automated Differentia l Performed Ordering Provider: DONA HAYES Report Released Date/Time: Jun 12, 2023 12:34 PM Reporting Lab: [facility] [address] Performing Lab: [facility] [address] [place] [facility] URINALYS IS COLOR OF URINE LIGHT-YE LLOW 06/12 Specimen Type: URINE No comment entered. Ordering Provider: KAI BERTRAND Report Released Date/Time: Jun 12, 2023 10:01 AM Reporting Lab: [facility] [address] Performing Lab: [facility] [address] [facility] IS [facility] URINALYS IS SPECIFIC GRAVITY OF URINE 1.011 1.003 - 1.035 06/12 Specimen Type: URINE No comment entered. Ordering Provider: KAI BERTRAND Report Released Date/Time: Jun 12, 2023 10:01 AM Reporting Lab: [facility] [address] Performing Lab: [facility] [address] [facility] URINALYS IS BILIRUBIN. TOTAL [PRESENCE] IN URINE BY TEST STRIP NEGATIVE 06/12 Specimen Type: URINE No comment entered. Ordering Provider: KAI BERTRAND Report Released Date/Time: Jun 12, 2023 10:01 AM Reporting Lab: [facility] [address] Performing Lab: [facility] [address] [place] [facility] URINALYS IS KETONES [MASS/VOLU ME] IN URINE BY TEST STRIP NEGATIVE 06/12 Specimen Type: URINE No comment entered. Ordering Provider: KAI BERTRAND Report Released Date/Time: Jun 12, 2023 10:01 AM Reporting Lab: [facility] [address] Performing Lab: [facility] [address] [place] [facility] URINALYS IS GLUCOSE [MASS/VOLU ME] IN URINE BY TEST STRIP NEGATIVE 06/12 Specimen Type: URINE No comment entered. Ordering Provider: KAI BERTRAND Report Released Date/Time: Jun 12, 2023 10:01 AM Reporting Lab: [facility] [address] Performing Lab: [facility] [address] [place] [facility] URINALYS IS PROTEIN [MASS/VOLU ME] IN URINE BY TEST STRIP NEGATIVE 06/12 Specimen Type: URINE No comment entered. Ordering Provider: KAI BERTRAND Report Released Date/Time: Jun 12, 2023 10:01 AM Reporting Lab: [facility] [address] Performing Lab: [facility] [address] [place] [facility] URINALYS IS PH OF URINE BY TEST STRIP 8.0 5.0 - 8.0 06/12 Specimen Type: URINE No comment entered. Ordering Provider: KAI BERTRAND Report Released Date/Time: Jun 12, 2023 10:01 AM Reporting Lab: [facility] [address] Performing Lab: [facility] [address] [place] [facility] URINALYS IS LEUKOCYTES [#/AREA] IN URINE SEDIMENT BY MICROSCOPY HIGH POWER FIELD <1 0 - 7 06/12 Specimen Type: URINE No comment entered. Ordering Provider: KAI BERTRAND Report Released Date/Time: Jun 12, 2023 10:01 AM Reporting Lab: [facility] [address] Performing Lab: [facility] [address] [place] [facility] URINALYS IS BACTERIA [PRESENCE] IN URINE SEDIMENT BY LIGHT MICROSCOPY NONE SEEN 06/12 Specimen Type: URINE No comment entered. Ordering Provider: KAI BERTRAND Report Released Date/Time: Jun 12, 2023 10:01 AM Reporting Lab: [facility] [address] Performing Lab: [facility] [address] [place] [facility] URINALYS IS ERYTHROCYT ES [#/AREA] IN URINE SEDIMENT BY MICROSCOPY HIGH POWER FIELD NONE SEEN 0 - 3 06/12 Specimen Type: URINE No comment entered. Ordering Provider: KAI BERTRAND Report Released Date/Time: Jun 12, 2023 10:01 AM Reporting Lab: [facility] [address] Performing Lab: [facility] [address] [place] [facility] URINALYS IS APPEARANCE OF URINE CLEAR 06/12 Specimen Type: URINE No comment entered. Ordering Provider: KAI BERTRAND Report Released Date/Time: Jun 12, 2023 10:01 AM Reporting Lab: [facility] [address] Performing Lab: [facility] [address] [place] [facility] URINALYS IS EPITHELIAL CELLS.SQUA MOUS [#/AREA] IN URINE SEDIMENT BY MICROSCOPY HIGH POWER FIELD NONE SEEN 06/12 Specimen Type: URINE No comment entered. Ordering Provider: KAI BERTRAND Report Released Date/Time: Jun 12, 2023 10:01 AM Reporting Lab: [facility] [address] Performing Lab: [facility] [address] [place] [facility] URINALYS IS HEMOGLOBIN [PRESENCE] IN URINE BY TEST STRIP NEGATIVE 06/12 Specimen Type: URINE No comment entered. Ordering Provider: KAI BERTRAND Report Released Date/Time: Jun 12, 2023 10:01 AM Reporting Lab: [facility] [address] Performing Lab: [facility] [address] [facility] URINALYS IS NITRITE [PRESENCE] IN URINE BY TEST STRIP NEGATIVE 06/12 Specimen Type: URINE No comment entered. Ordering Provider: KAI BERTRAND Report Released Date/Time: Jun 12, 2023 10:01 AM Reporting Lab: [facility] [address] Performing Lab: [facility] [address] [facility] URINALYS IS LEUKOCYTE ESTERASE [PRESENCE] IN URINE BY TEST STRIP NEGATIVE 06/12 Specimen Type: URINE No comment entered. Ordering Provider: KAI BERTRAND Report Released Date/Time: Jun 12, 2023 10:01 AM Reporting Lab: [facility] [address] Performing Lab: [facility] [address] [facility] Vital Signs Combined list of inpatient and outpatient Vital Signs from Department of Defense and Veterans Affairs, ranging from 12 months to all on record, depending upon the facility. Vital Sign Value Date Comments Source Encounters Combined list of: 1) Encounters from Department of Veterans Affairs facilities going back up to thelast 18 months. 2) Encounters from the Department of [facility] facilities going back up to 280 months. Location Location Details Encounter Type Encounter Number Reason For Visit Attending Provider ADM Date DC Date Status Disposition Source [employer]([facility] OUTPATIENT [id number] ecg FUAD JUAREZ 03/24 Released w/o Limitations [employer] [employer]([facility] Cardiolog y) OUTPATIENT [id number] pft/occ health exam FUAD JUAREZ 03/24 Released w/o Limitations [employer]([facility]) [employer]([facility] Flight Medicine) OUTPATIENT [id number] occ health exam SCOTT CARRILLO 03/24 Released w/o Limitations [employer]([facility] Medicin [facility]) [employer]([facility] Flight Medicine) OUTPATIENT [id number] [place] Exam PERNELL MONTGOMERY S 10/02 Released w/o Limitations [employer]([facility]) [employer](ZZZ _Lak_FP_ Silver) OUTPATIENT [id number] amira llanos delta rick CLAY KHANNA L 03/27 Released w/o Limitations [employer](Z ZZ_Lak_ FPC_Sil mode) [facility] Outpatient Encounter [id number] BRIGITTE SALAS L 04/13 [place] [facility] Outpatient Encounter [id number] KEYLA WEATHERS A 04/[address] [facility] Outpatient Encounter [id number] GILBERTO CHADWICK W 07/[address] [facility] Outpatient Encounter [id number] Diagnos is: ICD-10- CM R41.89 Oth symptom s and signs w cogniti ve functio ns and awarene ss
JOSE ANTONIO BEASLEY JESSE L 08/[address] [facility] PSYCH DIAGNOSTIC EVALUATION [id number] Diagnos is: ICD-10- CM F41.9 Anxiety disorde r, unspeci fied
SKROCH,JOJO ET A 09/[address] [facility] Outpatient Encounter [id number] Diagnos is: ICD-10- CM K58.0 Irritab le bowel syndrom e with diarrhe a
JOSE ANTONIO BEASLEY JESSE L 10/[address] [facility] Outpatient Encounter [id number] 12/02 [place] [facility] Outpatient Encounter [id number] 12/[address] [place] [facility] IS [facility] Outpatient Encounter [id number] BETH WEAVER 12/[address] [facility] OFFICE O/P EST LOW 20-29 MIN [id number] Diagnos is: ICD-10- CM R19.7 Diarrhe a, unspeci fied
TRAUTJOSE ANTONIO JESSE L 12/[address] [facility] EVAL AUD FUNCJ 1ST HOUR [id number] Diagnos is: ICD-10- CM Z02.89 Encount er for other adminis trative examina tions<b r/> DEEPTHIPRECIOUS SANCHEZ 03/11 [facility] Outpatient Encounter [id number] Diagnos is: ICD-10- CM Z77.29 Contact with and exposur e to other hazardo us substan lucille<br/ > PRECIOUS LACEY 03/12 [facility] IS [facility] Outpatient Encounter [id number] 05/[address] [facility] Outpatient Encounter [id number] Diagnos is: ICD-10- CM Z77.29 Contact with and exposur e to other hazardo us substan lucille<br/ > RAJAT FRANCOIS 05/15 [facility] IS [facility] OFF/OP CNSLTJ NEW/EST LOW 30 [id number] Diagnos is: ICD-10- CM R35.0 Frequen cy of micturi tion
ALEXANDRA BERTRAND RISTOPHER MACIEL 06/[address] [facility] OFFICE O/P EST MOD 30 MIN [id number] Diagnos is: ICD-10- CM F33.8 Other recurre nt depress rupali disorde rs
Alexis HAYES 06/[address] [facility] Outpatient Encounter [id number] Alexis HAYES 06/23 [place] [facility] [place] [facility] Outpatient Encounter [id number] 06/25 [place] [facility] [place] [facility] HEMOGLOBIN [id number] Diagnos is: ICD-10- CM Z77.9 Oth contact w and (suspec rajesh) exposur es hazardo us to health< br/> YNES ANTOINE 06/[address] 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 OFF/OP EST MAY X REQ PHY/QHP [id number] Diagnos is: ICD-10- CM J45.909 Unspeci fied asthma, uncompl icated< br/> GARY MORALES 06/[address] [facility] Outpatient Encounter [id number] 06/[address] [facility] QNHP OL DIG ASSMT&MGMT 5-10 [id number] Diagnos is: ICD-10- CM J45.998 Other asthma< br/> JOAQUINA MINER 06/25 [place] [facility] [place] [facility] Outpatient Encounter [id number] 06/29 [place] [facility] OFF[facility] O/P NEW MOD 45 MIN [id number] Diagnos is: ICD-10- CM R19.7 Diarrhe a, unspeci fied
Magalis ESPINO 07/[address] [facility] EMERGENCY DEPT VISIT LOW MDM [id number] Diagnos is: ICD-10- CM W54.0XX A Bitten by dog, initial encount er
FOZIA CARTER R 07/21 [facility] Procedures Combined list of: 1) Procedures from Department of Veterans Affairs facilities going back up to thelast 18 months, not all [place] non-surgical procedures are included; 2) All procedures from the Department of Defense facilities. Procedure Procedure Type Code Date Perfomer Comments [facility] e ECG Interpretation And Report Only ECG Interpretation And Report Only [id number] 03/25/[address] [facility] Audiogram (Screening) Audiogram (Screening) [id number] 03/25/2006 [facility] Pulmonary Function Tests Pulmonary Function Tests 99521 03/25/2006 [facility] Spirometry Pre-bronchodilator Spirometry Pre-bronchodilator 82961 03/24/[address] [facility] ECG Performance of Tracing Only ECG Performance of Tracing Only [id number] 03/24/[address] [facility] EDUCATIONAL SUPPLIES, SUCH BOOKS, TAPES, AND PAMPHLETS, FOR THE PATIENT'S EDUCATION AT COST TO PHYSICIAN OR OTHER QUALIFIED HEALTH CLAIMS ATTORNEY 02/08/2003 [facility] EVALUATION OF SPEECH, LANGUAGE, VOICE, COMMUNICATION, AND/OR AUDITORY PROCESSING 03/24/2006 [facility] SPIROMETRY, INCLUDING GRAPHIC RECORD, TOTAL AND TIMED VITAL CAPACITY, EXPIRATORY FLOW RATE MEASUREMENT(S), WITH OR WITHOUT MAXIMAL VOLUNTARY VENTILATION 03/24/2006 [facility] ELECTROCARDIOGRAM, ROUTINE ECG WITH AT LEAST 12 LEADS; TRACING ONLY, WITHOUT INTERPRETATION AND REPORT 03/24/2006 [facility] ELECTROCARDIOGRAM, ROUTINE ECG WITH AT LEAST 12 LEADS; INTERPRETATION AND REPORT ONLY 03/24/2006 [facility] ELECTROCARDIOGRAM, ROUTINE ECG WITH AT LEAST 12 LEADS; WITH INTERPRETATION AND REPORT 08/22/2005 [facility] SPIROMETRY, INCLUDING GRAPHIC RECORD, TOTAL AND TIMED VITAL CAPACITY, EXPIRATORY FLOW RATE MEASUREMENT(S), WITH OR WITHOUT MAXIMAL VOLUNTARY VENTILATION 08/08/2005 [facility] SCREENING TEST OF VISUAL ACUITY, QUANTITATIVE, BILATERAL 08/06/2005 [facility] Social History Combined list of available smoking, tobacco, and other social history from Department of Defense and Veterans Affairs facilities. 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 [facility] Plan of Care List of future care activities from Department of [facility] Affairs facilities. Additional future care activities may be listed in the Assessment and Plan section. Date/Time Care Activity Care Activity Detail Facili ty 08/20/2023 AMBULATORY - MEDICINE AMBULATORY - MEDICI [facility] 12/09/2023 AMBULATORY - SURGERY AMBULATORY - SURGERY [facility] 07/23/2023 Laboratory - Chemistry Order TTG AB,IGA S MARRY SP ONCE [facility] 07/23/2023 Laboratory - Chemistry Order IGA PLASMA S P ONCE [facility] 07/23/2023 Laboratory - Chemistry Order FLORA D ALLERGY PROFILE SERUM SP ONCE [facility] 07/23/2023 Laboratory - Chemistry Order C-R EACTIVE PROTEIN PLASMA SP ONCE [facility]
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
--- OUTSIDE RECORDS SUMMARY | 2023-08-13 20:17 | XMS_ITS | Encounter Summary ---
Author Name [facility] Organization [facility] Address [address] [place] [address] Support Name Relationship Address Phone CASTRO PEARSON Next of Kin [address] [place] [address] CASTRO PEARSON Emergency Contact [address] [place] [address] Insurance Providers: All historical and [...] DOMINGA SEGUNDO SERVI JOSSELIN May 22, 2021 [id number] [phone] LILI,PH ILLIP PATIENT [place] PREFERRED PROVIDER ORGANIZAT ION (PPO) BAILI WICK SERVI JOSSELIN May 22, 2021 [id number] [phone] LILI,PH ILLIP PATIENT PRIME THERAPEUTI CS PRESCRIPT ION RX PLAN May 22, 2021 [facility] [id number] [phone] LILI,PH ILLIP PATIENT Selected Encounter This section includes the information on record at [facility] for the Encounter. Date/Time Encounter Type Encounter Description Reason Pro vider Source Jun 26, 2023 12:40 PM Outpatient Encounter PULMONARY FUNCTION IHE Encounter Template Text not used by [facility] Plan of Treatment: Future Appointments (+ 6 months) and Future Tests (+/- 45 days) The Plan of Treatment section includes [facility] care [facility] the [facility] This section includes future appointments and future orders which are active, pending or scheduled. Future Appointments This section includes appointments that were scheduled to occur 6 months from the date of the Encounter, up to a maximum of 20 appointments. The data comes from all [facility]. Appointment Date/Time Appointment Type Appointme nt Facility Name Jul 02, 2023 01:00 PM [facility] Jul 17, 2023 10:30 AM AMBULATORY - MEDICINE [facility] Jul 22, 2023 09:34 PM AMBULATORY - MEDICINE [facility] August 20, 2023 01:20 PM AMBULATORY - MEDICINE [facility] Dec 09, 2023 02:30 PM AMBULATORY - SURGERY [facility] Active, Pending, and Scheduled Orders This section includes a listing of several types of active, pending, and scheduled orders, including clinic medications orders, diagnostic test orders, procedure orders and consult orders; where the start date of the order is 45 days before the date of the Encounter or 45 days after the date of theEncounter. The data comes from all [facility]. Test Date/Time Test Type Test Details Facility Name May 15, 2023 12:12 PM Consult Order [facility] Cons Optical Store Manager's Choice [facility] Jul 23, 2023 12:00 AM Laboratory - Chemi stry Order TTG AB,IGA SERUM SP ONCE [facility] Jul 23, 2023 12:00 AM Laboratory - Chemi stry Order IGA PLASMA SP ONCE [facility] Jul 23, 2023 12:00 AM Laboratory - Chemi stry Order FOOD ALLERGY PROFILE SERUM SP ONCE [facility] Jul 23, 2023 12:00 AM Laboratory - Chemi stry Order C-REACTIVE PROTEIN PLASMA SP ONCE [facility] Lab Results: +/- 30 days of the encounter This section includes the Chemistry and Hematology Lab Results on record with [facility] for the patient. Radiology Reports and Pathology Reports are provided separately, in subsequent sections. Lab Results This section contains the Chemistry/Hematology Results that were resulted 30 days before or 30 daysafter the date of the Encounter. Date/Time Source Result Type Result - Unit Interpretation Reference Range Comment Jun 12, 2023 12:35 PM [facility] HEMOGLOBIN A1C Specimen Type: BLOOD Comment: Values [...] Jun 12, 2023 12:34 PM Reporting Lab: [facility] [id number] Performing Lab: [address] HEMOGLOBIN A1C 5.1 4.0-6.0 Jun 12, 2023 12:35 PM [facility] ANTI-HEP C(EIA) Specimen Type: SERUM No comment entered. Ordering Provider: RADHA HAYES Report Released Date/Time: Jun 12, 2023 12:34 PM Reporting Lab: [address] Performing Lab: [place] [address] ANTI-HEP C(EIA) NEGATIVE NEGATIVE Jun 12, 2023 12:35 PM [facility] HIV AG/AB SCREEN Specimen Type: SERUM No comment entered. Ordering Provider: RADHA HAYES Report Released Date/Time: Jun 12, 2023 12:34 PM Reporting Lab: [facility] [id number] Performing Lab: [place] [address] HIV AG/AB SCREEN NEGATIVE NEGATIVE Jun 12, 2023 12:35 PM [facility] TSH W/REFLEX TO FREE T4 Specimen Type: PLASMA No comment entered. Ordering Provider: RADHA HAYES Report Released Date/Time: Jun 12, 2023 12:34 PM Reporting Lab: [facility] [address] Performing Lab: [facility] [address] TSH 0.45 0.35-4.94 Jun 12, 2023 12:35 PM [facility] ELP/IMMFIX,SERUM PANEL Specimen Type: SERUM Comment: Values [...] Jun 12, 2023 12:34 PM Reporting Lab: [facility] [id number] Performing Lab: [facility] [address] PROTEIN,TOTAL 6.9 6.0-8.3 .ALBUMIN FRACTION 4.57 3.66-4.78 .ALPHA 1 FRACTION 0.25 0.14-0.38 .ALPHA 2 FRACTION 0.61 0.50-0.90 .BETA 1 FRACTION 0.39 0.33-0.55 .BETA 2 FRACTION 0.23 0.20-0.52 .GAMMA FRACTION 0.85 0.58-1.72 .TOTAL PROTEIN 6.9 6.0-8.3 .INTERPRETATION NO MONOCLONALS DETECTED Jun 12, 2023 12:35 PM [facility] VIT D 25-OH,TOTAL Specimen Type: SERUM No comment entered. Ordering Provider: RADHA HAYES Report Released Date/Time: Jun 12, 2023 12:34 PM Reporting Lab: [facility] [address] Performing Lab: [facility] [address] VIT D 25-OH,TOTAL 30 12-50 Jun 12, 2023 12:35 PM [facility] IRON GROUP Specimen Type: SERUM Comment: Values [...] Jun 12, 2023 12:34 PM Reporting Lab: [facility] [address] Performing Lab: [facility] [address] IRON 120 65-175 TIBC,CALCULATED 313 250-425 FERRITIN pending IRON SATURATION 38 20-50 TRANSFERRIN 250 163-382 Jun 12, 2023 12:35 PM [facility] COMPREHENSIVE METABOLIC PANEL+MG Specimen Type: PLASMA Comment: [...] Jun 12, 2023 12:34 PM Reporting Lab: [facility] [address] Performing Lab: [facility] Jun 12, 2023 12:35 PM [facility] CBC & DIFF Specimen Type: BLOOD Comment: Automated Differential Performed Ordering Provider: RADHA HAYES Report Released Date/Time: Jun 12, 2023 12:34 PM Reporting Lab: [facility] [address] Performing Lab: [facility] [phone] WBC 5.32 4.0-11.0 RBC 5.94 4.6-6.2 HGB [...] 0.01 0-0.1 Jun 12, 2023 10:30 AM [facility] URINALYSIS Specimen Type: URINE No comment entered. Ordering Provider: YANIRA BERTRAND Report Released Date/Time: Jun 12, 2023 10:01 AM Reporting Lab: [facility] [address] Performing Lab: [facility] [address] URINE COLOR LIGHT-YELLOW SPECIFIC GRAVITY 1.011 1.003-1.03 [...] Height Weight Body Mass Index Source Jun 26, 2023 10:28 AM 96.5 92 127/79 16 97 0 153.[address] [place] [facility] Social History: Smoking Status (Most current) and Tobacco Use (All prior to encounter date) This section includes the most current, and the historical, smoking and tobacco- related health factors from the [facility] facility where the Encounter took place. Current Smoking Status This section includes the most current smoking, or tobacco-related health factor, from the [facility] facility where the Encounter took place. Date/Time Current Smoking Status Comment Parag lima Sep 24, 2022 01:00 PM VA-TOBACCO NEVER USED [facility] Tobacco Use History This section includes a history of the smoking, or tobacco-related health factors, that were collected on or before the date of the Encounter. The data comes from the [facility] facility where the Encounter took place. Date/Time Smoking Status/Tobacco Use Comment F narinder Mar 28, 2021 02:33 PM VA-TOBACCO NEVER USED [facility] Jan 21, 2020 02:30 PM VA-TOBACCO NEVER USED [facility] Jun 15, 2018 09:56 AM VA-TOBACCO NEVER USED [facility] Jul 16, 2017 08:39 AM LIFETIME NON-TOBACCO USER [facility] September 05, 2016 05:17 PM LIFETIME NON-TOBACCO USER [facility] Feb 19, 2008 12:20 PM LIFETIME NON-TOBACCO USER [facility] Radiology Reports: +/- 30 days of the [...] the Encounter. The data comes from all [facility] treatment facilities. Date/Time Radiology Report Provider Source Jun 12, 2023 10:35 AM CHEST 2 VIEWS PA A ND LAT: AFTAB PEARSON [id number] -1985 M Exm Date: JUN 12, 2023@10:35 Req Phys: ALESSANDROCAROLINA POLK B Pat Loc: [facility] C&P ALESSANDRO (Req'g Loc Img Loc: MAIN X-RAY Service: Unknown (Case [id number] COMPLETE) CHEST 2 VIEWS PA AND LAT (RAD Detailed) CPT:89777 Reason for Study: H/O asbestos exposure approximately 10 years ago. Clinical History: [place] IS NOT under investigation for COVID-19 or is COVID-19 negative H/O asbestos exposure approximately 10 years ago. Responsible provider name and phone number to notify for critical findings if other than user placing the order and pager listed below: User placing orders pager: LAST CREATININE 1.0 (12/26/22) Report Status: Verified Date Reported: JUN 12, 2023 Date Verified: JUN 12, 2023 Club Car Attendant E-Sig:/ES/VERONICA FARLEY MD Report: EXAMINATION: CHEST [...] Primary Interpreting Staff: VERONICA FARLEY MD, RADIOLOGIST (Club Car Attendant) /VERONICA MACIEL [facility] Jun 12, 2023 10:35 AM LUMBAR SPINE MIN 4 VIEWS: AFTAB PEARSON [id number] -1985 M Exm Date: JUN 12, 2023@10:35 Req Phys: CAROLINA FRANCOIS Pat Loc: [facility] C&P ALESSANDRO (Req'g Loc Img Loc: MAIN X-RAY Service: Unknown (Case [id number] COMPLETE) LUMBAR SPINE MIN 4 VIEWS (RAD Detailed) CPT:18502 Proc Modifiers : Standing Reason for Study: [...] 12, 2023 Date Verified: JUN 12, 2023 Club Car Attendant E-Sig:/ES/DANIEL BOND MD, FACR, CCD Report: [...] Staff: DANIEL BOND MD, FACR, STAFF RADIOLOGIST (Club Car Attendant) /BSF DANIEL BOND [facility] Jun 12, 2023 10:34 AM KNEE LEFT 4 VIEWS: AFTAB PEARSON [id number] -1985 M Exm Date: JUN 12, 2023@10:34 Req Phys: CAROLINA FRANCOIS B Pat Loc: [facility] C&P ALESSANDRO (Req'g Loc Img Loc: MAIN X-RAY Service: Unknown (Case [id number] COMPLETE) KNEE LEFT 4 VIEWS (RAD Detailed) CPT:49204 Reason for Study: 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 [employer] Clinical History: [place] IS NOT under investigation for COVID-19 or is COVID-19 negative 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 No significant degenerative changes of the knee. No significant joint effusion. 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 No significant degenerative changes of the knee. No significant joint effusion. No comparison exam. Primary Interpreting Staff: VERONICA FARLEY MD, RADIOLOGIST (Club Car Attendant) /RTS VERONICA FARLEY [facility] Encounter Notes: All associated encounter notes This section contains the clinical notes associated to the Encounter. Date/Time Encounter Note(s) Provider Source Jun 26, 2023 12:40 PM REPORT OF CONTACT: LOCAL TITLE: APPOINTMENT SCHEDULING NOTE STANDARD TITLE: REPORT OF CONTACT DATE OF NOTE: JUN 26, 2023@12:40 ENTRY DATE: JUN 26, 2023@12:40:48 AUTHOR: OTTONIEL BLANCO EXP COSIGNER: URGENCY: STATUS: COMPLETED Attempted to schedule Return to clinic (RTC) If calls back, schedule appt for: Asthma Exercise Challenge Test If no response by 07/09/2022 order can be D/C. /[email or web address]/ OTTONIEL BLANCO ADVANCED MSA Signed: 06/26/2023 12:41 OTTONIEL BLANCO [facility]
--- OUTSIDE RECORDS SUMMARY | 2023-08-13 20:17 | XMS_ITS | Encounter Summary ---
Author Name [facility] Organization [facility] [employer] Address [address] [place] [address] Support Name Relationship Address Phone CASTRO PEARSON Next of Kin [address] [place] [address] CASTRO PEARSON Emergency Contact [address] [place] [address] Insurance Providers: All historical and [...] DOMINGA SEGUNDO SERVI JOSSELIN May 22, 2021 [id number] [phone] LILI,PH ILLIP PATIENT [place] PREFERRED PROVIDER ORGANIZAT ION (PPO) BAILI WICK SERVI JOSSELIN May 22, 2021 [id number] [phone] LILI,PH ILLIP PATIENT PRIME THERAPEUTI CS PRESCRIPT ION RX PLAN May 22, 2021 [facility] [id number] [phone] LILI,PH ILLIP PATIENT Selected Encounter This section includes the information on record at [place] for the Encounter. Date/Time Encounter Type Encounter Description Reason Provider Source Jun 24, 2023 11:09 AM Outpatient Encounter PRIMARY CARE/MEDICINE VALENTINO FERGUSON [place] Encounter Template Text not used by [place] Plan of Treatment: Future Appointments (+ 6 months) and Future Tests (+/- 45 days) The Plan of Treatment section includes future care activities for the patient from all [place] [facility]. This section includes future appointments and future orders which are active, pending or scheduled. Future Appointments This section includes appointments that were scheduled to occur 6 months from the date of the Encounter, up to a maximum of 20 appointments. The data comes from all [facility]. Appointment Date/Time Appointment Type Appointme nt Facility Name Jun 26, 2023 09:20 AM [facility] Jun 26, 2023 10:30 AM AMBULATORY [facility] MEDICINE [facility] Jun 26, 2023 11:30 AM AMBULATORY - MEDICINE [facility] Jul 02, 2023 01:00 PM [facility]ORY [facility] NONE [facility] Jul 17, 2023 10:30 AM AMBULATORY - MEDICINE [facility] Jul 22, 2023 09:34 PM AMBULATORY - MEDICINE [facility] August 20, 2023 01:20 PM AMBULATORY - MEDICINE [facility] Dec 09, 2023 02:30 PM [facility] Active, Pending, and Scheduled Orders This section includes a listing of several types of active, pending, and scheduled orders, including clinic medications orders, diagnostic test orders, procedure orders and consult orders; where the start date of the order is 45 days before the date of the Encounter or 45 days after the date of theEncounter. The data comes from all [facility]. Test Date/Time Test Type Test Details Facility Name May 15, 2023 12:12 PM Consult Order [facility]-SLEEP MEDICINE Cons Spinner Operator's Choice [facility] Jul 23, 2023 12:00 AM Laboratory - Chemi stry Order IGA PLASMA SP ONCE [facility] Jul 23, 2023 12:00 AM Laboratory - Chemi stry Order TTG AB,IGA SERUM SP ONCE [facility] Jul 23, 2023 12:00 AM Laboratory - Chemi stry Order C-REACTIVE PROTEIN PLASMA SP ONCE [facility] Jul 23, 2023 12:00 AM Laboratory - Chemi stry Order FOOD ALLERGY PROFILE SERUM SP ONCE [facility] Lab Results: +/- 30 days of the encounter This section includes the Chemistry and Hematology Lab Results on record with [place] for the patient. Radiology Reports and Pathology Reports are provided separately, in subsequent sections. Lab Results This section contains the Chemistry/Hematology Results that were resulted 30 days before or 30 daysafter the date of the Encounter. Date/Time Source Result Type Result - Unit Interpretation Reference Range Comment Jun 12, 2023 12:35 PM [facility] HEMOGLOBIN A1C Specimen Type: BLOOD [...] 12:34 PM Reporting Lab: [facility] [id number] Performing Lab: [place] [id number] HEMOGLOBIN A1C 5.1 4.0-6.0 Jun 12, 2023 12:35 PM [facility] ANTI-HEP C(EIA) Specimen Type: SERUM No comment entered. Ordering Provider: RADHA FERGUSON Report Released Date/Time: Jun 12, 2023 12:34 PM Reporting Lab: [facility] [id number] Performing Lab: [facility] [phone] ANTI-HEP C(EIA) NEGATIVE NEGATIVE Jun 12, 2023 12:35 PM [facility] HIV AG/AB SCREEN Specimen Type: SERUM No comment entered. Ordering Provider: RADHA FERGUSON Report Released Date/Time: Jun 12, 2023 12:34 PM Reporting Lab: [facility] [id number] Performing Lab: [facility] [phone] HIV AG/AB SCREEN NEGATIVE NEGATIVE Jun 12, 2023 12:35 PM [facility] TSH W/REFLEX TO FREE T4 Specimen Type: PLASMA No comment entered. Ordering Provider: RADHA FERGUSON Report Released Date/Time: Jun 12, 2023 12:34 PM Reporting Lab: [facility] [phone] Performing Lab: [facility] [address] TSH 0.45 0.35-4.94 Jun 12, 2023 12:35 PM [facility] ELP/IMMFIX,SERUM PANEL Specimen Type: SERUM [...] 12:34 PM Reporting Lab: [facility] [address] Performing Lab: [facility] [phone] PROTEIN,TOTAL 6.9 6.0-8.3 .ALBUMIN FRACTION 4.57 3.66-4.78 .ALPHA 1 FRACTION 0.25 0.14-0.38 .ALPHA 2 FRACTION 0.61 0.50-0.90 .BETA 1 FRACTION 0.39 0.33-0.55 .BETA 2 FRACTION 0.23 0.20-0.52 .GAMMA FRACTION 0.85 0.58-1.72 .TOTAL PROTEIN 6.9 6.0-8.3 .INTERPRETATION NO MONOCLONALS DETECTED Jun 12, 2023 12:35 PM [facility] IRON GROUP Specimen Type: SERUM [...] 12:34 PM Reporting Lab: [facility] [address] Performing Lab: [facility] [address] IRON 120 65-175 TIBC,CALCULATED 313 250-425 FERRITIN pending IRON SATURATION 38 20-50 TRANSFERRIN 250 163-382 Jun 12, 2023 12:35 PM [facility] VIT D 25-OH,TOTAL Specimen Type: SERUM No comment entered. Ordering Provider: RADHA FERGUSON Report Released Date/Time: Jun 12, 2023 12:34 PM Reporting Lab: [facility] [phone] Performing Lab: [facility] [phone] VIT D 25-OH,TOTAL 30 12-50 Jun 12, 2023 12:35 PM [facility] COMPREHENSIVE METABOLIC PANEL+MG Specimen Type: [...] 12:34 PM Reporting Lab: [facility] [phone] Performing Lab: [facility] Jun 12, 2023 12:35 PM [facility] CBC & DIFF Specimen Type: BLOOD Comment: Automated Differential Performed Ordering Provider: RADHA FERGUSON Report Released Date/Time: Jun 12, 2023 12:34 PM Reporting Lab: [facility] [address] Performing Lab: [facility] [address] WBC 5.32 4.0-11.0 RBC 5.94 4.6-6.2 HGB [...] 0.01 0-0.1 Jun 12, 2023 10:30 AM [facility] URINALYSIS Specimen Type: URINE No comment entered. Ordering Provider: YANIRA BERTRAND Report Released Date/Time: Jun 12, 2023 10:01 AM Reporting Lab: [facility] [phone] Performing Lab: [facility] [phone] URINE COLOR LIGHT-YELLOW SPECIFIC GRAVITY 1.011 1.003-1.03 5 URINE BILIRUBIN NEGATIVE NEGATIVE URINE KETONES NEGATIVE NEGATIVE URINE GLUCOSE NEGATIVE See_Co mmen t URINE PROTEIN NEGATIVE See_Co mmen t URINE PH 8.0 5.0-8.0 URINE WBC/HPF <1 0-7 URINE BACTERIA NONE SEEN URINE RBC/HPF NONE SEEN 0-3 APPEARANCE CLEAR SQUAMOUS EPITHELIAL NONE SEEN URINE BLOOD NEGATIVE NEGATIVE URINE NITRITE NEGATIVE NEGATIVE LEUKOCYTE ESTERASE NEGATIVE NEGATIVE Social History: Smoking Status (Most current) and Tobacco Use (All prior to encounter date) This section includes the most current, and the historical, smoking and tobacco- related health factors from the [facility] where the Encounter took place. Current Smoking Status This section includes the most current smoking, or tobacco-related health factor, from the [place] facility where the Encounter took place. Date/Time Current Smoking Status Comment Parag lima Sep 24, 2022 01:00 PM VA-TOBACCO NEVER USED [facility] Tobacco Use History This section includes a history of the smoking, or tobacco-related health factors, that were collected on or before the date of the Encounter. The data comes from the [place] facility where the Encounter took place. Date/Time Smoking Status/Tobacco Use Comment F aczhen Mar 28, 2021 02:33 PM VA-TOBACCO NEVER USED [facility] Jan 21, 2020 02:30 PM VA-TOBACCO NEVER USED [facility] Jun 15, 2018 09:56 AM VA-TOBACCO NEVER USED [facility] Jul 16, 2017 08:39 AM LIFETIME NON-TOBACCO USER [facility] September 05, 2016 05:17 PM LIFETIME NON-TOBACCO USER [facility] Feb 19, 2008 12:20 PM LIFETIME NON-TOBACCO USER [facility] Radiology Reports: +/- 30 days [...] the Encounter. The data comes from all [place] treatment facilities. Date/Time Radiology Report Provider Source Jun 12, 2023 10:35 AM CHEST 2 VIEWS PA A ND LAT: AFTAB PEARSON [id number] -1985 M Exm Date: JUN 12, 2023@10:35 Req Phys: ALESSANDROCAROLINA B Pat Loc: [facility] C&P ALESSANDRO (Req'g Loc Img Loc: MAIN X-RAY Service: Unknown (Case [id number] COMPLETE) CHEST 2 VIEWS PA AND LAT (RAD Detailed) CPT:13346 Reason for Study: H/O asbestos exposure approximately 10 years ago. Clinical History: Isabella IS NOT under investigation for COVID-19 or is COVID-19 negative H/O asbestos exposure approximately 10 years ago. Responsible provider name and phone number to notify for critical findings if other than user placing the order and pager listed below: User placing orders pager: LAST CREATININE 1.0 (12/26/22) Report Status: Verified Date Reported: JUN 12, 2023 Date Verified: JUN 12, 2023 Facilities Manager E-Sig:/ES/VERONICA FARLEY MD Report: EXAMINATION: CHEST 2 [...] Primary Interpreting Staff: VERONICA FARLEY MD, RADIOLOGIST (Facilities Manager) /VERONICA MACIEL [facility] Jun 12, 2023 10:35 AM LUMBAR SPINE MIN 4 VIEWS: AFTAB PEARSON [id number] -1985 M Exm Date: JUN 12, 2023@10:35 Req Phys: CAROLINA FRANCOIS B Pat Loc: [facility] C&P ALESSANDRO (Req'g Loc Img Loc: MAIN X-RAY Service: Unknown (Case [id number] COMPLETE) LUMBAR SPINE MIN 4 VIEWS (RAD Detailed) CPT:07031 Proc Modifiers : Standing Reason for Study: Chronic lumbalgia 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 [employer] Clinical History: Isabella IS NOT under investigation for COVID-19 or [...] 12, 2023 Date Verified: JUN 12, 2023 Facilities Manager E-Sig:/ES/DANIEL BOND MD, FACR, CCD Report: EXAMINATION: [...] Staff: DANIEL BOND MD, FACR, STAFF RADIOLOGIST (Facilities Manager) /BSF DANIEL BOND [facility] Jun 12, 2023 10:34 AM KNEE RIGHT 4 VIEWS : AFTAB PEARSON [id number] -1985 M Exm Date: JUN 12, 2023@10:34 Req Phys: ALESSANDRO,CAROLINA B Pat Loc: [facility] C&P ALESSANDRO (Req'g Loc Img Loc: MAIN X-RAY Service: Unknown (Case [id number] COMPLETE) KNEE RIGHT 4 VIEWS (RAD Detailed) CPT:12859 Reason for Study: 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 [employer] Clinical History: Isabella IS NOT under investigation for COVID-19 or is COVID-19 negative 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 No significant degenerative changes of the knee. No significant joint effusion. No comparison exam. Primary Interpreting Staff: VERONICA FARLEY MD, RADIOLOGIST (Facilities Manager) /RTS VERONICA FARLEY [facility] Jun 12, 2023 10:34 AM KNEE LEFT 4 VIEWS: AFTAB PEARSON [id number] -1985 M Exm Date: JUN 12, 2023@10:34 Req Phys: CAROLINA FRANCOIS B Pat Loc: [facility] C&P ALESSANDRO (Req'g Loc Img Loc: MAIN X-RAY Service: Unknown (Case [id number] COMPLETE) KNEE LEFT 4 VIEWS (RAD Detailed) CPT:20804 Reason for Study: Chronic bilateral knee pain [...] 12, 2023 Date Verified: JUN 12, 2023 Facilities Manager E-Sig:/ES/VERONICA FARLEY MD Report: EXAMINATION: KNEE LEFT 4 VIEWS 06/12/2023 10:34 AM INDICATION: 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 No significant degenerative changes of the knee. No significant joint effusion. Primary Interpreting Staff: VERONICA FARLEY MD, RADIOLOGIST (Facilities Manager) /RTS VERONICA FARLEY [facility] Encounter Notes: All associated encounter notes This section contains the clinical notes associated to the Encounter. Date/Time Encounter Note(s) Provider Source Jun 24, 2023 11:09 AM PRIMARY CARE SECUR E MESSAGING: LOCAL TITLE: PRIMARY CARE SECURE MESSAGING STANDARD TITLE: PRIMARY CARE SECURE MESSAGING DATE OF NOTE: JUN 24, 2023@11:09 ENTRY DATE: JUN 24, 2023@10:09:34 AUTHOR: STEFFANIE FERGUSON EXP COSIGNER: URGENCY: STATUS: COMPLETED ------Original Message ------ Sent: 06/18/2023 05:22 PM ET From: AFTAB PEARSON To: [facility] Primary Care, Adam Ferguson ([place]) Subject: Test:Hemoglobin A1C results Liam Valiente, Can you please provide more clarification on my hemoglobin levels being at 5.1? Is this something that is making me fatigued? Since you mentioned diabetes in your letter is that just letting me know that if it goes up I will test positive for diabetes? Anything you recommend I should do to help those levels be more in range for my age and weight? Thanks, Geovany Pearson ------Original Message ------ Sent: 06/24/2023 11:09 AM ET From: STEFFANIE FERGUSON To: AFTAB PEARSON Subject: Test:Hemoglobin A1C results An a1c of 5.1 is perfect. Pre-diabetes is 5.7-6.4 and type 2 diabetes is an a1c of >/=6.5, so you are far from either of those. All of your labs were normal, so the next step in evaluating your fatigue would be to have you schedule with the sleep clinic for further evaluation. Steffanie Ferguson PA-C Physician Histology Specialist /[email or web address]/ Steffanie Ferguson PA-C Physician Histology Specialist Signed: 06/24/2023 10:09 STEFFANIE FERGUSON [facility]
--- OUTSIDE RECORDS SUMMARY | 2023-08-13 20:17 | XMS_ITS | Encounter Summary ---
Author Name [facility] Organization [facility] Address [address] [place] [address] Support Name Relationship Address Phone CASTRO PEARSON Next of Kin [address] [place] [address] CASTRO PEARSON Emergency Contact [address] [place] [address] Insurance Providers: All historical and [...] DOMINGA SEGUNDO SERVI JOSSELIN May 22, 2021 [id number] [phone] LILI,PH ILLIP PATIENT [place] PREFERRED PROVIDER ORGANIZAT ION (PPO) BAILI WICK SERVI JOSSELIN May 22, 2021 [id number] [phone] LILI,PH ILLIP PATIENT PRIME THERAPE[employer]I CS PRESCRIPT ION RX PLAN May 22, 2021 [facility] [id number] [phone] LILI,PH ILLIP PATIENT Selected Encounter This section includes the information on record at [place] for the Encounter. Date/Time Encounter Type Encounter Description Reason Pro vider Source Jun 26, 2023 09:15 AM Outpatient Encounter PULMONARY FUNCTION IHE Encounter Template Text not used by [facility] Plan of Treatment: Future Appointments (+ 6 months) and Future Tests (+/- 45 days) The Plan of Treatment section includes future care activities for the patient from all [place] [facility]. This section includes future appointments and future orders which are active, pending or scheduled. Future Appointments This section includes appointments that were scheduled to occur 6 months from the date of the Encounter, up to a maximum of 20 appointments. The data comes from all [facility]. Appointment Date/Time Appointment Type Appointme nt Facility Name Jul 02, 2023 01:00 PM [facility] Jul 17, 2023 10:30 AM AMBULATORY - MEDICINE [facility] Jul 22, 2023 09:34 PM AMBULATORY - MEDICINE [facility] August 20, 2023 01:20 PM AMBULATORY - MEDICINE [facility] Dec 09, 2023 02:30 PM AMBULATORY - SURGERY [facility] Active, Pending, and Scheduled Orders This section includes a listing of several types of active, pending, and scheduled orders, including clinic medications orders, diagnostic test orders, procedure orders and consult orders; where the start date of the order is 45 days before the date of the Encounter or 45 days after the date of theEncounter. The data comes from all [facility]. Test Date/Time Test Type Test Details Facility Name May 15, 2023 12:12 PM Consult Order [facility]INE Cons Physically Impaired Teacher's Choice [facility] Jul 23, 2023 12:00 AM Laboratory - Chemi stry Order TTG AB,IGA SERUM SP ONCE [facility] Jul 23, 2023 12:00 AM Laboratory - Chemi stry Order IGA PLASMA SP ONCE [facility] Jul 23, 2023 12:00 AM Laboratory - Chemi stry Order FOOD ALLERGY PROFILE SERUM SP ONCE [facility] Jul 23, 2023 12:00 AM Laboratory - Chemi stry Order C-REACTIVE PROTEIN PLASMA SP ONCE [facility] Lab Results: +/- 30 days of the encounter This section includes the Chemistry and Hematology Lab Results on record with [place] for the patient. Radiology Reports and Pathology Reports are provided separately, in subsequent sections. Lab Results This section contains the Chemistry/Hematology Results that were resulted 30 days before or 30 daysafter the date of the Encounter. Date/Time Source Result Type Result - Unit Interpretation Reference Range Comment Jun 12, 2023 12:35 PM [facility] HEMOGLOBIN A1C Specimen Type: BLOOD Comment: [...] Jun 12, 2023 12:34 PM Reporting Lab: [facility] [id number] Performing Lab: [id number] HEMOGLOBIN A1C 5.1 4.0-6.0 Jun 12, 2023 12:35 PM [facility] ANTI-HEP C(EIA) Specimen Type: SERUM No comment entered. Ordering Provider: RADHA HAYES Report Released Date/Time: Jun 12, 2023 12:34 PM Reporting Lab: [facility] [address] Performing Lab: [address] ANTI-HEP C(EIA) NEGATIVE NEGATIVE Jun 12, 2023 12:35 PM [facility] HIV AG/AB SCREEN Specimen Type: SERUM No comment entered. Ordering Provider: RADHA HAYES Report Released Date/Time: Jun 12, 2023 12:34 PM Reporting Lab: [facility] [address] Performing Lab: [facility] [address] HIV AG/AB SCREEN NEGATIVE NEGATIVE Jun 12, 2023 12:35 PM [facility] TSH W/REFLEX TO FREE T4 Specimen Type: PLASMA No comment entered. Ordering Provider: RADHA HAYES Report Released Date/Time: Jun 12, 2023 12:34 PM Reporting Lab: [facility] [address] Performing Lab: [facility] [address] TSH 0.45 0.35-4.94 Jun 12, 2023 12:35 PM [facility] VIT D 25-OH,TOTAL Specimen Type: SERUM No comment entered. Ordering Provider: RADHA HAYES Report Released Date/Time: Jun 12, 2023 12:34 PM Reporting Lab: [facility] [address] Performing Lab: [facility] [address] VIT D 25-OH,TOTAL 30 12-50 Jun 12, 2023 12:35 PM [facility] ELP/IMMFIX,SERUM PANEL Specimen Type: SERUM Comment: [...] Jun 12, 2023 12:34 PM Reporting Lab: [facility] [address] Performing Lab: [facility] [address] PROTEIN,TOTAL 6.9 6.0-8.3 .ALBUMIN FRACTION 4.57 3.66-4.78 .ALPHA 1 FRACTION 0.25 0.14-0.38 .ALPHA 2 FRACTION 0.61 0.50-0.90 .BETA 1 FRACTION 0.39 0.33-0.55 .BETA 2 FRACTION 0.23 0.20-0.52 .GAMMA FRACTION 0.85 0.58-1.72 .TOTAL PROTEIN 6.9 6.0-8.3 .INTERPRETATION NO MONOCLONALS DETECTED Jun 12, 2023 12:35 PM [facility] IRON GROUP Specimen Type: SERUM Comment: [...] Jun 12, 2023 12:34 PM Reporting Lab: [facility] [address] Performing Lab: [facility] [address] IRON 120 65-175 TIBC,CALCULATED 313 250-425 FERRITIN pending IRON SATURATION 38 20-50 TRANSFERRIN 250 163-382 Jun 12, 2023 12:35 PM [facility] COMPREHENSIVE METABOLIC PANEL+MG Specimen Type: PLASMA [...] Jun 12, 2023 12:34 PM Reporting Lab: [facility] [address] Performing Lab: [facility] Jun 12, 2023 12:35 PM [facility] CBC & DIFF Specimen Type: BLOOD Comment: Automated Differential Performed Ordering Provider: RADHA HAYES Report Released Date/Time: Jun 12, 2023 12:34 PM Reporting Lab: [facility] [address] Performing Lab: [facility] [address] WBC 5.32 4.0-11.0 RBC 5.94 4.6-6.2 HGB [...] 0.01 0-0.1 Jun 12, 2023 10:30 AM [facility] URINALYSIS Specimen Type: URINE No comment entered. Ordering Provider: YANIRA BERTRAND Report Released Date/Time: Jun 12, 2023 10:01 AM Reporting Lab: [facility] [address] Performing Lab: [facility] [address] URINE COLOR LIGHT-YELLOW SPECIFIC GRAVITY 1.011 1.003-1.03 [...] 127/79 16 97 0 153.5 24 [place] [facility] Social History: Smoking Status (Most current) and Tobacco Use (All prior to encounter date) This section includes the most current, and the historical, smoking and tobacco- related health factors from the [place] facility where the Encounter took place. Current Smoking Status This section includes the most current smoking, or tobacco-related health factor, from the [place] facility where the Encounter took place. Date/Time Current Smoking Status Comment Parag lima Sep 24, 2022 01:00 PM VA-TOBACCO NEVER USED [facility] Tobacco Use History This section includes a history of the smoking, or tobacco-related health factors, that were collected on or before the date of the Encounter. The data comes from the [place] facility where the Encounter took place. Date/Time Smoking Status/Tobacco Use Comment F narinder Mar 28, 2021 02:33 PM VA-TOBACCO NEVER USED [facility] Jan 21, 2020 02:30 PM VA-TOBACCO NEVER USED [facility] Jun 15, 2018 09:56 AM VA-TOBACCO NEVER USED [facility] Jul 16, 2017 08:39 AM LIFETIME NON-TOBACCO USER [facility] September 05, 2016 05:17 PM LIFETIME NON-TOBACCO USER [facility] Feb 19, 2008 12:20 PM LIFETIME NON-TOBACCO USER [facility] Radiology Reports: +/- 30 days of [...] the Encounter. The data comes from all [place] treatment facilities. Date/Time Radiology Report Provider Source Jun 12, 2023 10:35 AM CHEST 2 VIEWS PA A ND LAT: AFTAB PEARSON [id number] -1985 M Exm Date: JUN 12, 2023@10:35 Req Phys: ALESSANDROCAROLINA POLK B Pat Loc: [facility] C&P ALESSANDRO (Req'g Loc Img Loc: MAIN X-RAY Service: Unknown (Case [id number] COMPLETE) CHEST 2 VIEWS PA AND LAT (RAD Detailed) CPT:40941 Reason for Study: H/O asbestos exposure approximately 10 years ago. Clinical History: [place] IS NOT under investigation for COVID-19 or is COVID-19 negative H/O asbestos exposure approximately 10 years ago. Responsible provider name and phone number to notify for critical findings if other than user placing the order and pager listed below: User placing orders pager: LAST CREATININE 1.0 (12/26/22) Report Status: Verified Date Reported: JUN 12, 2023 Date Verified: JUN 12, 2023 [employer]ender E-Sig:/ES/VERONICA FARLEY MD Report: EXAMINATION: CHEST 2 [...] Primary Interpreting Staff: VERONICA FARLEY MD, RADIOLOGIST ([employer] Machine Tender) /VERONICA MACIEL [facility] Jun 12, 2023 10:35 AM LUMBAR SPINE MIN 4 VIEWS: AFTAB PEARSON [id number] -1985 M Exm Date: JUN 12, 2023@10:35 Req Phys: CAROLINA FRANCOIS Pat Loc: [facility] C&P ALESSANDRO (Req'g Loc Img Loc: MAIN X-RAY Service: Unknown (Case [id number] COMPLETE) LUMBAR SPINE MIN 4 VIEWS (RAD Detailed) CPT:15956 Proc Modifiers : Standing Reason for Study: [...] 12, 2023 Date Verified: JUN 12, 2023 [employer] Machine Tender E-Sig:/ES/DANIEL BOND MD, FACR, CCD Report: EXAMINATION: [...] Staff: DANIEL BOND MD, FACR, STAFF RADIOLOGIST ([employer]ble Machine Tender) /BSF DANIEL BOND [facility] Jun 12, 2023 10:34 AM KNEE RIGHT 4 VIEWS : AFTAB PEARSON [id number] -1985 M Exm Date: JUN 12, 2023@10:34 Req Phys: CAROLINA FRANCOIS B Pat Loc: [facility] C&P ALESSANDRO (Req'g Loc Img Loc: MAIN X-RAY Service: Unknown (Case [id number] COMPLETE) KNEE RIGHT 4 VIEWS (RAD Detailed) CPT:80926 Reason for Study: 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 [employer] Clinical History: [place] IS NOT under investigation for COVID-19 or is COVID-19 negative 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 No significant degenerative changes of the knee. No significant joint effusion. No comparison exam. Primary Interpreting Staff: VERONICA FARLEY MD, RADIOLOGIST ([employer]ble Machine Tender) /RTS VERONICA FARLEY [facility] Jun 12, 2023 10:34 AM KNEE LEFT 4 VIEWS: AFTAB PEARSON [id number] -1985 M Exm Date: JUN 12, 2023@10:34 Req Phys: CAROLINA FRANCOIS Pat Loc: [facility] C&P ALESSANDRO (Req'g Loc Img Loc: MAIN X-RAY Service: Unknown (Case [id number] COMPLETE) KNEE LEFT 4 VIEWS (RAD Detailed) CPT:28792 Reason for Study: Chronic bilateral knee pain [...] 12, 2023 Date Verified: JUN 12, 2023 Marble Machine Tender E-Sig:/ES/VERONICA FARLEY MD Report: EXAMINATION: KNEE LEFT 4 VIEWS 06/12/2023 10:34 AM INDICATION: 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 No significant degenerative changes of the knee. No significant joint effusion. Primary Interpreting Staff: VERONICA FARLEY MD, RADIOLOGIST (Marble Machine Tender) /RTS VERONICA FARLEY [facility] Encounter Notes: All associated encounter notes This section contains the clinical notes associated to the Encounter. Date/Time Encounter Note(s) Provider Source Jun 26, 2023 09:43 AM PULMONARY PROCEDUR E NOTE: LOCAL TITLE: CP PULMONARY FUNCTION TEST STANDARD TITLE: PULMONARY PROCEDURE NOTE DATE OF NOTE: JUN 26, 2023@09:43:01 ENTRY DATE: JUN 26, 2023@09:43:01 AUTHOR: CLINICAL,DEVICE PRO EXP COSIGNER: URGENCY: STATUS: COMPLETED PROCEDURE SUMMARY CODE: Machine Resulted DATE/TIME PERFORMED: JUN 26, 2023@09:20:5 DOCUMENT IN VISTA IMAGING SEE FULL REPORT IN VISTA IMAGING SIGNATURE NOT REQUIRED SEE SIGNATURE IN VISTA IMAGING (VYAIRE (PFT)) AUTO-INSTRUMENT DIAGNOSIS Procedure: MIN_PFT PFT Measurement ti09:24AM Spirometry Ref LLN Pre ZScore% Ref FVC L 4.36 3.51 4.66 0.58 106.9 FEV 1 L 3.58 2.83 3.49 -0.20 97.5 FEV1/FVC% 82 73 75 -1.27 PEF L/s 8.92 6.93 8.91 -0.01 99.9 Z-Score Pre-Bronchodilator FVC L 0.58 FEV 1 L -0.20 FEV1/FVC % -1 Diffusing Capacity Ref LLN Pre %Ref Z-Score Z-Score DLCO_SBml/(min*m28.5822 .27 26.99 94.4 -0.39 -0.39 DLCOcSBml/(min*m28.5822 .27 25.96 90.8 -0.65 -0.65 Parameter FVC FEV1 FEV1/FVC TLC RV DLCO_SB 06/26/2023 4.66 3.49 75 26.99 Interpretation: Spirometry is Normal. Diffusing Capacity is Normal. Signed By: Casa Stout MD Administrative Closure: 06/26/2023 by: CLINICAL,DEVICE PROXY SERVICE CLINICAL,DEVICE PROXY SERVICE [facility]
--- OUTSIDE RECORDS SUMMARY | 2023-08-13 20:17 | XMS_ITS | Encounter Summary ---
Author Name [facility] Organization [facility] Address [address] [place] [id number] Support Name Relationship Address Phone CASTRO PEARSON Next of Kin [address] [place] [address] CASTRO PEARSON Emergency Contact [address] [place] [address] Insurance Providers: All historical and [...] DOMINGA SEGUNDO SERVI JOSSELIN May 22, 2021 [id number] [phone] LILI,PH ILLIP PATIENT [place] PREFERRED PROVIDER ORGANIZAT ION (PPO) BAILI WICK SERVI JOSSELIN May 22, 2021 [id number] [phone] LILI,PH ILLIP PATIENT PRIME THERAPEUTI CS PRESCRIPT ION RX PLAN May 22, 2021 [facility] [id number] LILI,PH ILLIP PATIENT Selected Encounter This section includes the information on record at ID for the Encounter. Date/Time Encounter Type Encounter Description Reason Provider Source Jun 26, 2023 09:20 AM HEMOGLOBIN PULMONARY FUNCTION ICD-10-CM Z77.9 Oth contact w and (suspected) exposures hazardous to health ANTONI ANTOINE E Encounter Template Text not used by ID Assessments - Encounter Diagnoses This section includes the primary and secondary diagnoses documented for the Encounter. Date/Time Primary/Secondary Diagnosis Diagnosis Name Provider Source Jun 26, 2023 09:41 AM PRIMARY Oth contact w and (suspected) exposures hazardous to health REFUGIOANJEL [facility] Plan of Treatment: Future Appointments (+ 6 months) and Future Tests (+/- 45 days) The Plan of Treatment section includes future care activities for the patient from all ID treatmentfacilities. This section includes future appointments and future orders which are active, pending or scheduled. Future Appointments This section includes appointments that were scheduled to occur 6 months from the date of the Encounter, up to a maximum of 20 appointments. The data comes from all [facility]. Appointment Date/Time Appointment Type Appointme nt Facility Name Jul 02, 2023 01:00 PM AMBULATORY - NONE [facility] Jul 17, 2023 10:30 AM AMBULATORY - MEDICINE [facility] Jul 22, 2023 09:34 PM AMBULATORY - MEDICINE [facility] August 20, 2023 01:20 PM AMBULATORY - MEDICINE [facility] Dec 09, 2023 02:30 PM AMBULATORY - SURGERY [facility] Active, Pending, and Scheduled Orders This section includes a listing of several types of active, pending, and scheduled orders, including clinic medications orders, diagnostic test orders, procedure orders and consult orders; where the start date of the order is 45 days before the date of the Encounter or 45 days after the date of theEncounter. The data comes from all [facility]. Test Date/Time Test Type Test Details Facility Name May 15, 2023 12:12 PM Consult Order [facility] MEDICINE Cons [employer] [facility] Jul 23, 2023 12:00 AM Laboratory - Chemi stry Order TTG AB,IGA SERUM SP ONCE [facility] Jul 23, 2023 12:00 AM Laboratory - Chemi stry Order IGA PLASMA SP ONCE [facility] Jul 23, 2023 12:00 AM Laboratory - Chemi stry Order FOOD ALLERGY PROFILE SERUM SP ONCE [facility] Jul 23, 2023 12:00 AM Laboratory - Chemi stry Order C-REACTIVE PROTEIN PLASMA SP ONCE [facility] Lab Results: +/- 30 days of the encounter This section includes the Chemistry and Hematology Lab Results on record with ID for the patient. Radiology Reports and Pathology Reports are provided separately, in subsequent sections. Lab Results This section contains the Chemistry/Hematology Results that were resulted 30 days before or 30 daysafter the date of the Encounter. Date/Time Source Result Type Result - Unit Interpretation Reference Range Comment Jun 12, 2023 12:35 PM [facility] HEMOGLOBIN A1C Specimen Type: BLOOD [...] Jun 12, 2023 12:34 PM Reporting Lab: [facility] [id number] Performing Lab: [facility] [id number] HEMOGLOBIN A1C 5.1 4.0-6.0 Jun 12, 2023 12:35 PM [facility] ANTI-HEP C(EIA) Specimen Type: SERUM No comment entered. Ordering Provider: RADHA HAYES Report Released Date/Time: Jun 12, 2023 12:34 PM Reporting Lab: [facility] [id number] Performing Lab: [facility] [address] ANTI-HEP C(EIA) NEGATIVE NEGATIVE Jun 12, 2023 12:35 PM [facility] HIV AG/AB SCREEN Specimen Type: SERUM No comment entered. Ordering Provider: RADHA HAYES Report Released Date/Time: Jun 12, 2023 12:34 PM Reporting Lab: [facility] [id number] Performing Lab: [facility] [address] HIV AG/AB SCREEN NEGATIVE NEGATIVE Jun 12, 2023 12:35 PM [facility] TSH W/REFLEX TO FREE T4 Specimen Type: PLASMA No comment entered. Ordering Provider: RADHA HAYES Report Released Date/Time: Jun 12, 2023 12:34 PM Reporting Lab: [facility] [address] Performing Lab: [facility] [phone] TSH 0.45 0.35-4.94 Jun 12, 2023 12:35 PM [facility] VIT D 25-OH,TOTAL Specimen Type: SERUM No comment entered. Ordering Provider: RADHA HAYES Report Released Date/Time: Jun 12, 2023 12:34 PM Reporting Lab: [facility] [id number] Performing Lab: [facility] [address] VIT D 25-OH,TOTAL 30 12-50 Jun 12, 2023 12:35 PM [facility] ELP/IMMFIX,SERUM PANEL Specimen Type: SERUM [...] Jun 12, 2023 12:34 PM Reporting Lab: [facility] [address] Performing Lab: [facility] [address] PROTEIN,TOTAL 6.9 6.0-8.3 .ALBUMIN FRACTION 4.57 3.66-4.78 .ALPHA 1 FRACTION 0.25 0.14-0.38 .ALPHA 2 FRACTION 0.61 0.50-0.90 .BETA 1 FRACTION 0.39 0.33-0.55 .BETA 2 FRACTION 0.23 0.20-0.52 .GAMMA FRACTION 0.85 0.58-1.72 .TOTAL PROTEIN 6.9 6.0-8.3 .INTERPRETATION NO MONOCLONALS DETECTED Jun 12, 2023 12:35 PM [facility] IRON GROUP Specimen Type: SERUM [...] Jun 12, 2023 12:34 PM Reporting Lab: [facility] [phone] Performing Lab: [facility] [address] IRON 120 65-175 TIBC,CALCULATED 313 250-425 FERRITIN pending IRON SATURATION 38 20-50 TRANSFERRIN 250 163-382 Jun 12, 2023 12:35 PM [facility] COMPREHENSIVE METABOLIC PANEL+MG Specimen Type: [...] Jun 12, 2023 12:34 PM Reporting Lab: [facility] [phone] Performing Lab: [facility] Jun 12, 2023 12:35 PM [facility] CBC & DIFF Specimen Type: BLOOD Comment: Automated Differential Performed Ordering Provider: RADHA HAYES Report Released Date/Time: Jun 12, 2023 12:34 PM Reporting Lab: [facility] [phone] Performing Lab: [facility] [address] WBC 5.32 4.0-11.0 RBC 5.94 4.6-6.2 HGB [...] 0.01 0-0.1 Jun 12, 2023 10:30 AM [facility] URINALYSIS Specimen Type: URINE No comment entered. Ordering Provider: YANIRA BERTRAND Report Released Date/Time: Jun 12, 2023 10:01 AM Reporting Lab: [facility] [address] Performing Lab: [facility] [address] URINE COLOR LIGHT-YELLOW SPECIFIC GRAVITY 1.011 1.003-1.03 [...] 92 127/79 16 97 0 153.5 24 [facility] Social History: Smoking Status (Most current) and Tobacco Use (All prior to encounter date) This section includes the most current, and the historical, smoking and tobacco- related health factors from the ID facility where the Encounter took place. Current Smoking Status This section includes the most current smoking, or tobacco-related health factor, from the ID facility where the Encounter took place. Date/Time Current Smoking Status Comment Parag lima Sep 24, 2022 01:00 PM VA-TOBACCO NEVER USED [facility] Tobacco Use History This section includes a history of the smoking, or tobacco-related health factors, that were collected on or before the date of the Encounter. The data comes from the ID facility where the Encounter took place. Date/Time Smoking Status/Tobacco Use Comment F acility Mar 28, 2021 02:33 PM VA-TOBACCO NEVER USED [facility] Jan 21, 2020 02:30 PM VA-TOBACCO NEVER USED [facility] Jun 15, 2018 09:56 AM VA-TOBACCO NEVER USED [facility] Jul 16, 2017 08:39 AM LIFETIME NON-TOBACCO USER [facility] September 05, 2016 05:17 PM LIFETIME NON-TOBACCO USER [facility] Feb 19, 2008 12:20 PM LIFETIME NON-TOBACCO USER [facility] Radiology Reports: +/- 30 days [...] the Encounter. The data comes from all [facility] facilities. Date/Time Radiology Report Provider Source Jun 12, 2023 10:35 AM CHEST 2 VIEWS PA A ND LAT: AFTAB PEARSON [id number] -1985 M Exm Date: JUN 12, 2023@10:35 Req Phys: CAROLINA FRANCOIS Pat Loc: FSN [facility]VC C&P ALESSANDRO (Req'g Loc Img Loc: MAIN X-RAY Service: Unknown (Case [id number] COMPLETE) CHEST 2 VIEWS PA AND LAT (RAD Detailed) CPT:39957 Reason for Study: H/O asbestos exposure approximately [...] 12, 2023 Date Verified: JUN 12, 2023 [employer] E-Sig:/ES/VERONICA FARLEY MD Report: EXAMINATION: CHEST 2 [...] Primary Interpreting Staff: VERONICA FARLEY MD, RADIOLOGIST ([employer]) /RTS VERONICA FARLEY [facility] Jun 12, 2023 10:35 AM LUMBAR SPINE MIN 4 VIEWS: AFTAB PEARSON [id number] -1985 M Exm Date: JUN 12, 2023@10:35 Req Phys: ALESSANDROMACARENAY B Pat Loc: FSN [facility] C&P ALESSANDRO (Req'g Loc Img Loc: MAIN X-RAY Service: Unknown (Case [id number] COMPLETE) LUMBAR SPINE MIN 4 VIEWS (RAD Detailed) CPT:64699 Proc Modifiers : Standing Reason for Study: Chronic lumbalgia 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 [employer] Clinical History: [place] IS NOT under investigation for COVID-19 or [...] 12, 2023 Date Verified: JUN 12, 2023 [employer] E-Sig:/ES/DANIEL BOND MD, FACR, CCD Report: EXAMINATION: [...] Staff: DANIEL BOND MD, FACR, STAFF RADIOLOGIST ([employer]) /BSF DANIEL BOND [facility] Jun 12, 2023 10:34 AM KNEE RIGHT 4 VIEWS : AFTAB PEARSON [id number] -1985 M Exm Date: JUN 12, 2023@10:34 Req Phys: ALESSANDROMACARENAY B Pat Loc: FSN [facility] C&P ALESSANDRO (Req'g Loc Img Loc: MAIN X-RAY Service: Unknown (Case [id number] COMPLETE) KNEE RIGHT 4 VIEWS (RAD Detailed) CPT:34532 Reason for Study: 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 [employer] Clinical History: [place] IS NOT under investigation for COVID-19 or is COVID-19 negative 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 No significant degenerative changes of the knee. No significant joint effusion. No comparison exam. 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 [employer] Clinical History: [place] IS NOT under investigation for COVID-19 or is COVID-19 negative 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 [employer] Responsible provider name and phone number to notify for critical findings if other than user placing the order and pager listed below: User placing orders pager: LAST CREATININE 1.0 (12/26/22) Report Status: Verified Date Reported: JUN 12, 2023 Date Verified: JUN 12, 2023 [employer] E-Sig:/ES/ROSS T FARLEY, MD Report: EXAMINATION: KNEE LEFT 4 VIEWS 06/12/2023 10:34 AM INDICATION: 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 No significant degenerative changes of the knee. No significant joint effusion. Primary Interpreting Staff: VERONICA FARLEY MD, RADIOLOGIST ([employer]) /VERONICA MACIEL [facility]
--- OUTSIDE RECORDS SUMMARY | 2023-08-13 20:17 | XMS_ITS | Encounter Summary ---
Author Name [facility] Organization [facility] Address [address] [place] [address] Support Name Relationship Address Phone CASTRO PEARSON Next of Kin [address] [place] [address] CASTRO PEARSON Emergency Contact [address] [place] [address] Insurance Providers: All historical and [...] DOMINGA SEGUNDO SERVI JOSSELIN May 22, 2021 [id number] [phone] LILI,PH ILLIP PATIENT [place] PREFERRED PROVIDER ORGANIZAT ION (PPO) BAILI WICK SERVI JOSSELIN May 22, 2021 [id number] [phone] LILI,PH ILLIP PATIENT PRIME THERAPEUTI CS PRESCRIPT ION RX PLAN May 22, 2021 [facility] [id number] LILI,PH ILLIP PATIENT Selected Encounter This section includes the information on record at MT for the Encounter. Date/Time Encounter Type Encounter Description Reason Pro vider Source Jul 17, 2023 10:30 AM OFFICE O/P NEW MOD 45 MIN GASTROENTEROLOGY ICD-10-CM R19.7 Diarrhea, unspecified WOODHULL,REYNALDO DA R IHE Encounter Template Text not used by MT Assessments - Encounter Diagnoses This section includes the primary and secondary diagnoses documented for the Encounter. Date/Time Primary/Secondary Diagnosis Diagnosis Name Provider Source Jul 17, 2023 10:56 AM PRIMARY Diarrhea, unspecified JORGE ESPINO [facility] Plan of Treatment: Future Appointments (+ 6 months) and Future Tests (+/- 45 days) The Plan of Treatment section includes future care activities for the patient [facility] This section includes future appointments and future orders which are active, pending or scheduled. Future Appointments This section includes appointments that were scheduled to occur 6 months from the date of the Encounter, up to a maximum of 20 appointments. The data comes from all [facility]. Appointment Date/Time Appointment Type Appointme nt Facility Name Jul 22, 2023 09:34 PM AMBULATORY - MEDICINE [facility] August 20, 2023 01:20 PM AMBULATORY - MEDICINE [facility] Dec 09, 2023 02:30 PM AMBULATORY - SURGERY [facility] Active, Pending, and Scheduled Orders This section includes a listing of several types of active, pending, and scheduled orders, including clinic medications orders, diagnostic test orders, procedure orders and consult orders; where the start date of the order is 45 days before the date of the Encounter or 45 days after the date of theEncounter. The data comes from all [facility]. Test Date/Time Test Type Test Details Facility Name Jul 23, 2023 12:00 AM Laboratory - Chemi stry Order TTG AB,IGA SERUM SP ONCE [facility] Jul 23, 2023 12:00 AM Laboratory - Chemi stry Order IGA PLASMA SP ONCE [facility] Jul 23, 2023 12:00 AM Laboratory - Chemi stry Order FOOD ALLERGY PROFILE SERUM SP ONCE [facility] Jul 23, 2023 12:00 AM Laboratory - Chemi stry Order C-REACTIVE PROTEIN PLASMA SP ONCE [facility] Social History: Smoking Status (Most current) and Tobacco Use (All prior to encounter date) This section includes the most current, and the historical, smoking and tobacco- related health factors from the MT facility where the Encounter took place. Current Smoking Status This section includes the most current smoking, or tobacco-related health factor, from the MT facility where the Encounter took place. Date/Time Current Smoking Status Comment Facil ity Sep 24, 2022 01:00 PM VA-TOBACCO NEVER USED [facility] Tobacco Use History This section includes a history of the smoking, or tobacco-related health factors, that were collected on or before the date of the Encounter. The data comes from the MT facility where the Encounter took place. Date/Time Smoking Status/Tobacco Use Comment F acility Mar 28, 2021 02:33 PM VA-TOBACCO NEVER USED [facility] Jan 21, 2020 02:30 PM VA-TOBACCO NEVER USED [facility] Jun 15, 2018 09:56 AM VA-TOBACCO NEVER USED [facility] Jul 16, 2017 08:39 AM LIFETIME NON-TOBACCO USER [facility] September 05, 2016 05:17 PM LIFETIME NON-TOBACCO USER [facility] Feb 19, 2008 12:20 PM LIFETIME NON-TOBACCO USER [facility] Encounter Notes: All associated encounter notes This section contains the clinical notes associated to the Encounter. Date/Time Encounter Note(s) Provider Source Jul 17, 2023 10:33 AM GASTROENTEROLOGY CONSULT: LOCAL TITLE: GASTROENTEROLOGY CONSULT STANDARD TITLE: GASTROENTEROLOGY CONSULT DATE OF NOTE: JUL 17, 2023@10:33 ENTRY DATE: JUL 17, 2023@10:33:22 AUTHOR: KINGA ESPINO EXP COSIGNER: URGENCY: STATUS: COMPLETED GASTROENTEROLOGY CLINIC NOTE - [facility] 37 year old presents to the GI clinic with diarrhea HPI: He complains of issues with daily diarrhea 3-6 episodes per time for the past 18 years. He feels like diarrhea is getting worse over time. No blood in stool. Consistency is liquid to loose. If he eats dairy or has increased urgency he will experiencing abdominal cramping. No issues with nausea, vomiting, reflux or unintentional weight loss. He is sensitive to dairy and symptoms somewhat improve when he limits or avoids. However the diarrhea can be triggered by any food at certain times. He has be using loperamide PRN. Especially if he goes out to eat. If he takes its 3 times per day it causes constipation. Has not tried fiber powder. 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 PAST MEDICAL HISTORY Active problems - Computerized Problem List is the source for the followin. Tinea Unguium 2. Acne 3. Adjustment disorder with depressed mood 4. Depression 5. Social phobia 6. Temporomandibular joint disorder 7. 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 Air pollution (SNOMED CT 403953830) 9. Exposure to asbestos (SNOMED CT 380417771) - In Dorm in [place] 10. Exposure to aromatic benzene (SNOMED CT 008397695719399) - JET FUEL contaminant 11. Exposed to tobacco smoke at work (SNOMED CT 161269198) - Passive smoke 12. Exposed to noise (SNOMED CT 8909485) - Acoustical Trauma 13. Shortness of breath (SNOMED CT 601929065) - CESPEDES 14. History of palpitations (SNOMED CT 066547122) - NOS 15. Diarrhea (SNOMED CT 11667344) - Constant issue 16. Adjustment disorder (SNOMED CT 38119963) - WITH DEPRESSED MOOD 17. Wheezing - Wheezing when running not seen by Pulmonary 18. 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 Exposure to potentially hazardous substance 20. Finding of frequency of urination SURGICAL HISTORY - SURGERIES - NONE FOUND MEDICATIONS (OUTPATIENT) Active Outpatient Medications (excluding Supplies): Outpatient Medications Status 1) BUDESONIDE 160/FORMOTER 4.5MCG 120D INH INHALE 1 PUFF ACTIVE BY INHALATION NEEDED FOR SHORTNESS OF BREATH - MAX 12 PUFFS DAILY ### 2) BUPROPION HCL 300MG 24HR SA TAB TAKE ONE TABLET BY ACTIVE MOUTH EVERY MORNING FOR MOOD 3) CITALOPRAM HYDROBROMIDE 20MG TAB TAKE ONE AND ACTIVE ONE-HALF TABLETS BY MOUTH EVERY DAY FOR ANXIETY 4) HYDROXYZINE HCL 25MG TAB TAKE ONE TABLET BY MOUTH AT ACTIVE BEDTIME FOR SLEEP 5) LACTASE 3000 UNT TAB TAKE ONE TABLET BY MOUTH FOUR ACTIVE TIMES A DAY NEEDED FOR LACTOSE INTOLERANCE 6) LOPERAMIDE HCL 2MG CAP TAKE ONE CAPSULE BY MOUTH ACTIVE THREE TIMES A DAY NEEDED FOR DIARRHEA 7) SILDENAFIL CITRATE 100MG TAB TAKE ONE TABLET BY MOUTH ACTIVE ONCE NEEDED FOR ERECTILE DYSFUNCTION Non-VA Medications Status 1) Non-VA DIPHENHYDRAMINE HCL 25MG CAP 25MG MOUTH EVERY ACTIVE DAY NEEDED 2) Non-VA LORATADINE 10MG TAB 10MG MOUTH EVERY DAY ACTIVE NEEDED 9 Total Medications Allergies: Patient has answered NKA Physical Exam BP: 127/79 (06/26/2023 10:28) TEMP: 96.5 F [35.8 C] (06/26/2023 10:28) P: 92 (06/26/2023 10:28) R: 16 (06/26/2023 10:28) PAIN: 0 (06/26/2023 10:28) WT: 153.5 lb [69.63 kg] (06/26/2023 10:28) BMI: 24.1 HT: 67 in [170.2 cm] (12/26/2022 09:51) Gen: NAD, alert and conversant HEENT: EOMI, anicteric sclera, MMM Pulm: Non-labored on room air Ext/Skin: Normal color, no jaundice Psych: Appropriate mood and affect Labs: - Complete Blood Count White count: WBC 5.32 (06/12/23) Hemoglobin: HGB 16.6 (06/12/23) Hematocrit: HCT 49.7 (06/12/23) Platelets: PLT 258 (06/12/23) - Complete Metabolic Panel SODIUM 140 (06/12/23) POTASSIUM 3.9 (06/12/23) CHLORIDE 104 (06/12/23) CO2 28 (06/12/23) UREA NITROGEN 10 (06/12/23) CREATININE 0.9 (06/12/23) GLUCOSE 89 (06/12/23) CALCIUM 9.7 (06/12/23) MAGNESIUM 2.0 (06/12/23) EGFR (11/22) 01/21/20 @ 1315 76 CREATININE EGFR (CKD-EPI) 06/12/23 @ 1235 >90 AST/SGOT 22 (06/12/23) ALT/SGPT 22 (06/12/23) ALK PHOSPHATASE 69 (06/12/23) ALBUMIN 4.5 (06/12/23) BILIRUBIN, TOTAL 0.6 (06/12/23) Iron studies- WNL TSH- WNL Imaging/Studies: n/a Endoscopy: n/a Assessment & Plan #diarrhea - diagnostic colonoscopy - labs: CRP, TTG, IGA, Food allergy profile - trial of Metamucil 1 tablespoon daily (already has supply at home) RTC 8 weeks Visit conducted by synchronous telehealth. Deridder verbal consent obtained. Location/emergency number confirmed. Environment surveyed and all participated identified. Virtual conference room locked. Kinga Espino CNP Gastroenterology /es/ KINGA ESPINO CNP, AAHIVS Signed: 07/17/2023 10:56 KINGA ESPINO [facility]
--- OUTSIDE RECORDS SUMMARY | 2023-08-13 20:17 | XMS_ITS | Encounter Summary ---
Author Name [employer] [facility] [employer] Organization [facility] Address [address] [place] [address] Support Name Relationship Address Phone CASTRO PEARSON Next of Kin [address] [place] [address] CASTRO PEARSON Emergency Contact [address] [place] [address] Insurance Providers: All historical and [...] TRAELI WICK SERVI JOSSELIN May 22, 2021 [id number] [phone] LILI,PH ILLIP PATIENT [place] PREFERRED PROVIDER ORGANIZAT ION (PPO) BAILI WICK SERVI JOSSELIN May 22, 2021 [id number] [phone] LILI,PH ILLIP PATIENT PRIME THERAPEUTI CS PRESCRIPT ION RX PLAN May 22, 2021 [facility] [id number] [phone] LILI,PH ILLIP PATIENT Selected Encounter This section includes the information on record at [facility] for the Encounter. Date/Time Encounter Type Encounter Description Reason Provider Source Jun 26, 2023 10:30 AM OFF/OP CNSLTJ NEW/EST MOD 40 PULMONARY/CHEST ICD-10-CM J45.990 Exercise induced bronchospasm COURTNEY ANTOINE I[facility] Encounter Template Text not used by [place] Assessments - Encounter Diagnoses This section includes the primary and secondary diagnoses documented for the Encounter. Date/Time Primary/Secondary Diagnosis Diagnosis Name Provider Source Jun 26, 2023 11:30 AM PRIMARY Exercise induced bronchospasm COURTNEY ANTOINE [facility] Jun 26, 2023 11:30 AM SECONDARY Cntct w and expsr to environ tobacco smoke (acute) (chronic) COURTNEY ANTOINE [facility] Jun 26, 2023 11:30 AM SECONDARY Contact w and (suspected) exposure to oth hazardous metals COURTNEY ANTOINE [facility] Jun 26, 2023 11:30 AM SECONDARY Contact with and (suspected) exposure to benzene COURTNEY ANTOINE [facility] Jun 26, 2023 11:30 AM SECONDARY Contact with and exposure to other hazardous substances COURTNEY ANTOINE [facility] Jun 26, 2023 11:30 AM SECONDARY Shortness of breath COURTNEY ANTOINE [facility] Plan of Treatment: Future Appointments (+ 6 months) and Future Tests (+/- 45 days) The Plan of Treatment section includes future care activities for the patient from all [facility] This section includes future appointments and future orders which are active, pending or scheduled. Future Appointments This section includes appointments that were scheduled to occur 6 months from the date of the Encounter, up to a maximum of 20 appointments. The data comes from all [facility]. Appointment Date/Time Appointment Type Appointme nt Facility Name Jul 02, 2023 01:00 PM AMBULATORY - NONE [facility] Jul 17, 2023 10:30 AM AMBULATORY - MEDICINE [facility] Jul 22, 2023 09:34 PM AMBULATORY - MEDICINE [facility] August 20, 2023 01:20 PM AMBULATORY - MEDICINE [facility] Dec 09, 2023 02:30 PM AMBULATORY - SURGERY [facility] Active, Pending, and Scheduled Orders This section includes a listing of several types of active, pending, and scheduled orders, including clinic medications orders, diagnostic test orders, procedure orders and consult orders; where the start date of the order is 45 days before the date of the Encounter or 45 days after the date of theEncounter. The data comes from all [facility]. Test Date/Time Test Type Test Details Facility Name May 15, 2023 12:12 PM Consult Order COMMUNITY CARE-SLEEP MEDICINE Cons Catering Attendant's Choice [facility] Jul 23, 2023 12:00 AM Laboratory - Chemi stry Order TTG AB,IGA SERUM SP ONCE [facility] Jul 23, 2023 12:00 AM Laboratory - Chemi stry Order IGA PLASMA SP ONCE [facility] Jul 23, 2023 12:00 AM Laboratory - Chemi stry Order FOOD ALLERGY PROFILE SERUM SP ONCE [facility] Jul 23, 2023 12:00 AM Laboratory - Chemi stry Order C-REACTIVE PROTEIN PLASMA SP ONCE [facility] Lab Results: +/- 30 days of the encounter This section includes the Chemistry and Hematology Lab Results on record with [facility] for the patient. Radiology Reports and Pathology Reports are provided separately, in subsequent sections. Lab Results This section contains the Chemistry/Hematology Results that were resulted 30 days before or 30 daysafter the date of the Encounter. Date/Time Source Result Type Result - Unit Interpretation Reference Range Comment Jun 12, 2023 12:35 PM [facility] HEMOGLOBIN A1C Specimen Type: BLOOD Comment: Values [...] Jun 12, 2023 12:34 PM Reporting Lab: [facility] [id number] Performing Lab: [facility] [id number] HEMOGLOBIN A1C 5.1 4.0-6.0 Jun 12, 2023 12:35 PM [facility] ANTI-HEP C(EIA) Specimen Type: SERUM No comment entered. Ordering Provider: RADHA HAYES Report Released Date/Time: Jun 12, 2023 12:34 PM Reporting Lab: [facility] [id number] Performing Lab: [facility] [address] ANTI-HEP C(EIA) NEGATIVE NEGATIVE Jun 12, 2023 12:35 PM [facility] HIV AG/AB SCREEN Specimen Type: SERUM No comment entered. Ordering Provider: RADHA HAYES Report Released Date/Time: Jun 12, 2023 12:34 PM Reporting Lab: [facility] [address] Performing Lab: [address] HIV AG/AB SCREEN NEGATIVE NEGATIVE Jun 12, 2023 12:35 PM [facility] TSH W/REFLEX TO FREE T4 Specimen Type: PLASMA No comment entered. Ordering Provider: RADHA HAYES Report Released Date/Time: Jun 12, 2023 12:34 PM Reporting Lab: [facility] [address] Performing Lab: [address] TSH 0.45 0.35-4.94 Jun 12, 2023 12:35 PM [facility] VIT D 25-OH,TOTAL Specimen Type: SERUM No comment entered. Ordering Provider: RADHA HAYES Report Released Date/Time: Jun 12, 2023 12:34 PM Reporting Lab: [facility] [address] Performing Lab: [facility] [address] VIT D 25-OH,TOTAL 30 12-50 Jun 12, 2023 12:35 PM [facility] ELP/IMMFIX,SERUM PANEL Specimen Type: SERUM Comment: Values [...] Jun 12, 2023 12:34 PM Reporting Lab: [facility] [address] Performing Lab: [facility] [address] PROTEIN,TOTAL 6.9 6.0-8.3 .ALBUMIN FRACTION 4.57 3.66-4.78 .ALPHA 1 FRACTION 0.25 0.14-0.38 .ALPHA 2 FRACTION 0.61 0.50-0.90 .BETA 1 FRACTION 0.39 0.33-0.55 .BETA 2 FRACTION 0.23 0.20-0.52 .GAMMA FRACTION 0.85 0.58-1.72 .TOTAL PROTEIN 6.9 6.0-8.3 .INTERPRETATION NO MONOCLONALS DETECTED Jun 12, 2023 12:35 PM [facility] IRON GROUP Specimen Type: SERUM Comment: Values [...] Jun 12, 2023 12:34 PM Reporting Lab: [facility] [address] Performing Lab: [facility] [address] IRON 120 65-175 TIBC,CALCULATED 313 250-425 FERRITIN pending IRON SATURATION 38 20-50 TRANSFERRIN 250 163-382 Jun 12, 2023 12:35 PM [facility] COMPREHENSIVE METABOLIC PANEL+MG Specimen Type: PLASMA Comment: [...] Jun 12, 2023 12:34 PM Reporting Lab: [facility] [address] Performing Lab: [facility] Jun 12, 2023 12:35 PM [facility] CBC & DIFF Specimen Type: BLOOD Comment: Automated Differential Performed Ordering Provider: RADHA HAYES Report Released Date/Time: Jun 12, 2023 12:34 PM Reporting Lab: [facility] [address] Performing Lab: [facility] [address] WBC 5.32 4.0-11.0 RBC 5.94 4.6-6.2 HGB [...] 0.01 0-0.1 Jun 12, 2023 10:30 AM [facility] URINALYSIS Specimen Type: URINE No comment entered. Ordering Provider: YANIRA BERTRAND Report Released Date/Time: Jun 12, 2023 10:01 AM Reporting Lab: [facility] [address] Performing Lab: [facility] [address] URINE COLOR LIGHT-YELLOW SPECIFIC GRAVITY 1.011 1.003-1.03 [...] 127/79 16 97 [address] [place] [address] [facility] Social History: Smoking Status (Most current) and Tobacco Use (All prior to encounter date) This section includes the most current, and the historical, smoking and tobacco- related health factors from the [facility] facility where the Encounter took place. Current Smoking Status This section includes the most current smoking, or tobacco-related health factor, from the [facility] facility where the Encounter took place. Date/Time Current Smoking Status Comment Parag ity Sep 24, 2022 01:00 PM VA-TOBACCO NEVER USED [facility] Tobacco Use History This section includes a history of the smoking, or tobacco-related health factors, that were collected on or before the date of the Encounter. The data comes from the SD facility where the Encounter took place. Date/Time Smoking Status/Tobacco Use Comment F acility Mar 28, 2021 02:33 PM VA-TOBACCO NEVER USED [facility] Jan 21, 2020 02:30 PM VA-TOBACCO NEVER USED [facility] Jun 15, 2018 09:56 AM VA-TOBACCO NEVER USED [facility] Jul 16, 2017 08:39 AM LIFETIME NON-TOBACCO USER [facility] September 05, 2016 05:17 PM LIFETIME NON-TOBACCO USER [facility] Feb 19, 2008 12:20 PM LIFETIME NON-TOBACCO USER [facility] Radiology Reports: +/- 30 days of the [...] the Encounter. The data comes from all [place] treatment facilities. Date/Time Radiology Report Provider Source Jun 12, 2023 10:35 AM CHEST 2 VIEWS PA A ND LAT: AFTAB PEARSON [id number] -1985 M Exm Date: JUN 12, 2023@10:35 Req Phys: CAROLINA FRANCOIS Pat Loc: FSN [facility] C&P ALESSANDRO (Req'g Loc Img Loc: MAIN X-RAY Service: Unknown (Case [id number] COMPLETE) CHEST 2 VIEWS PA AND LAT (RAD Detailed) CPT:48753 Reason for Study: H/O asbestos exposure approximately [...] 12, 2023 Date Verified: JUN 12, 2023 Outboard Motorboat Operator E-Sig:/ES/VERONICA FARLEY MD Report: EXAMINATION: CHEST [...] Primary Interpreting Staff: VERONICA FARLEY MD, RADIOLOGIST (Outboard Motorboat Operator) /RTS VERONICA FARLEY [facility] Jun 12, 2023 10:35 AM LUMBAR SPINE MIN 4 VIEWS: AFTAB PEARSON [id number] -1985 M Exm Date: JUN 12, 2023@10:35 Req Phys: CAROLINA FRANCOIS Pat Loc: [facility] C&P ALESSANDRO (Req'g Loc Img Loc: MAIN X-RAY Service: Unknown (Case [id number] COMPLETE) LUMBAR SPINE MIN 4 VIEWS (RAD Detailed) CPT:42706 Proc Modifiers : Standing Reason for Study: Chronic lumbalgia 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 [employer] Clinical History: [place] IS NOT under investigation for COVID-19 or [...] 12, 2023 Date Verified: JUN 12, 2023 Outboard Motorboat Operator E-Sig:/ES/DANIEL BOND MD, FACR, CCD Report: EXAMINATION: [...] Staff: DANIEL BOND MD, FACR, STAFF RADIOLOGIST (Outboard Motorboat Operator) /BSF DANIEL BOND [facility] Jun 12, 2023 10:34 AM KNEE RIGHT 4 VIEWS : AFTAB PEARSON [id number] -1985 M Exm Date: JUN 12, 2023@10:34 Req Phys: ALESSANDRO,CAROLINA B Pat Loc: [facility] C&P AL[facility] (Req'g Loc Img Loc: MAIN X-RAY Service: Unknown (Case [id number] COMPLETE) KNEE RIGHT 4 VIEWS (RAD Detailed) CPT:24940 Reason for Study: Chronic bilateral knee pain [...] 12, 2023 Date Verified: JUN 12, 2023 Outboard Motorboat Operator E-Sig:/ES/VERONICA FARLEY MD Report: EXAMINATION: KNEE RIGHT 4 VIEWS 06/12/2023 10:34 AM INDICATION: 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 No significant degenerative changes of the knee. No significant joint effusion. No comparison exam. Primary Interpreting Staff: VERONICA FARLEY MD, RADIOLOGIST (Outboard Motorboat Operator) /RTS VERONICA FARLEY [facility] Jun 12, 2023 10:34 AM KNEE LEFT 4 VIEWS: AFTAB PEARSON [id number] -1985 M Exm Date: JUN 12, 2023@10:34 Req Phys: ALESSANDRO,CAROLINA B Pat Loc: [facility]SN [facility] C&P ALESSANDRO (Req'g Loc Img Loc: MAIN X-RAY Service: Unknown (Case [id number] COMPLETE) KNEE LEFT 4 VIEWS (RAD Detailed) CPT:61488 Reason for Study: Chronic bilateral knee pain [...] 12, 2023 Date Verified: JUN 12, 2023 Outboard Motorboat Operator E-Sig:/ES/VERONICA FARLEY MD Report: EXAMINATION: KNEE LEFT 4 VIEWS 06/12/2023 10:34 AM INDICATION: 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 No significant degenerative changes of the knee. No significant joint effusion. Primary Interpreting Staff: VERONICA FARLEY MD, RADIOLOGIST (Outboard Motorboat Operator) /RTS VERONICA FARLEY [facility] Encounter Notes: All associated encounter notes This section contains the clinical notes associated to the Encounter. Date/Time Encounter Note(s) Provider Source Jun 26, 2023 09:27 AM PULMONARY CONSULT: LOCAL TITLE: PULMONARY CONSULT STANDARD TITLE: PULMONARY CONSULT DATE OF NOTE: JUN 26, 2023@09:27 ENTRY DATE: JUN 26, 2023@09:28:32 AUTHOR: FRANDY CHAPARRO EXP COSIGNER: URGENCY: STATUS: COMPLETED PULMONARY CONSULT Has ADDENDA History of Present Illness and Pulmonary Review of Systems: The patient is a(n) 37 year old MALE with history of depression and adjustment disorder who presents to pulmonary clinic for evaluation of dyspnea on exertion and wheezing in the context of exposure to chemicals during the [place]. 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 Endorses noticing CESPEDES starting around 5905-5310 and has been occuring daily since then. Can walk about 25-50 yards before feeling SOB. Has occasional sharp chest pain not associated with activity which has been going on over a decade and no recent changes. Has maybe noticed some wheezing in the past when he has been around cats and with strenuous exercise. Has never used an inhaler. Wakes up frequently at night and does not feel well-rested when he wakes up. Has an upcoming sleep study at the [facility]. Recent CBC in may with normal WBC count and normal absolute eosinophil count. Also had unremarkable CXR 06/12/23. Has chronic postnasal drip. No cough, fevers, night sweats, SOB at rest or any other concerns. Personal/Social/Occupational : Smoker: never History of ETOH: 3 drinks/week TB exposure: no Asbestos: yes, about 2 days in 2006 in [place] Travel: no Pets/birds: 3 dogs (not allergic) Past medical history: Computerized Problem List is the source for the followin. Tinea Unguium ACTIVE 2. Acne (ICD-9-CM 706.1) ACTIVE 3. Adjustment disorder with depressed mood ACTIVE 4. Depression ACTIVE 5. Social phobia ACTIVE 6. Temporomandibular joint disorder ACTIVE 7. 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 ACTIVE 8. Air pollution (SNOMED CT 365900450) ACTIVE 9. Exposure to asbestos (SNOMED CT 128543867) ACTIVE In Dorm in [place] 10. Exposure to aromatic benzene (SNOMED CT 9348634852 ACTIVE JET FUEL contaminant 11. Exposed to tobacco smoke at work (SNOMED CT 313251 ACTIVE Passive smoke 12. Exposed to noise (SNOMED CT 4951507) ACTIVE Acoustical Trauma 13. Shortness of breath (SNOMED CT 564958582) ACTIVE CESPEDES 14. History of palpitations (SNOMED CT 879096273) ACTIVE NOS 15. Diarrhea (SNOMED CT 32641915) ACTIVE Constant issue 16. Adjustment disorder (SNOMED CT 13138973) ACTIVE WITH DEPRESSED MOOD 17. Wheezing ACTIVE Wheezing when running not seen by Pulmonary 18. Exposure to hazardous metal ACTIVE AFFF or aquerous firefighting foam (cardboard cutter in [facility]) 19. Exposure to potentially hazardous substance ACTIVE 20. Finding of frequency of urination ACTIVE Medications: Active Outpatient Medications (including Supplies): Active Outpatient Medications Status 1) BUPROPION HCL 300MG 24HR SA TAB TAKE ONE TABLET BY ACTIVE MOUTH EVERY MORNING FOR MOOD 2) CITALOPRAM HYDROBROMIDE 20MG TAB TAKE ONE AND ACTIVE ONE-HALF TABLETS BY MOUTH EVERY DAY FOR ANXIETY 3) HYDROXYZINE HCL 25MG TAB TAKE ONE TABLET BY MOUTH AT ACTIVE BEDTIME FOR SLEEP 4) LACTASE 3000 UNT TAB TAKE ONE TABLET BY MOUTH FOUR ACTIVE TIMES A DAY NEEDED FOR LACTOSE INTOLERANCE 5) LOPERAMIDE HCL 2MG CAP TAKE ONE CAPSULE BY MOUTH ACTIVE THREE TIMES A DAY NEEDED FOR DIARRHEA 6) SILDENAFIL CITRATE 100MG TAB TAKE ONE TABLET BY MOUTH ACTIVE ONCE NEEDED FOR ERECTILE DYSFUNCTION Active Non-VA Medications Status 1) Non-VA DIPHENHYDRAMINE HCL 25MG CAP 25MG MOUTH EVERY ACTIVE DAY NEEDED 2) Non-VA LORATADINE 10MG TAB 10MG MOUTH EVERY DAY ACTIVE NEEDED 8 Total Medications MEDICATION RECONCILIATION Outpatient At this visit I have reviewed the medication list, and discussed relevant medications with the patient/surrogate. An updated patient medication list was given to the participant(s). No Change Education on NEW Medication: I have reviewed the medication list for possible drug:drug interactions or contraindications prior to ordering NEW medications during this visit. indicated readiness to learn and has been instructed on action, dose, frequency and side effects of the new medication and I noted new medication on participant's copy of the medication list. Allergies: cats IM - Immunizations ADMINISTERED Immunization Series Date Facility Reaction Info COVID-19 ([employer]), MRNA, LNP-S, * 3 03/23/2021 [place] <C> COVID-19 ([employer]), MRNA, LNP-S, * 2 07/31/2020 [place] <C> COVID-19 ([employer]), MRNA, LNP-S, * 1 07/09/2020 [place] <C> COVID-19 ([employer]), MRNA, LNP-S, * 1 06/12/2023 [place]* INFLUENZA, UNSPECIFIED FORMULATI* No Site INFLUENZA, UNSPECIFIED FORMULATI* 03/12/2021 Through [facility]* INFLUENZA, UNSPECIFIED FORMULATI* 02/17/2014 [place]* INFLUENZA, UNSPECIFIED FORMULATI* 02/11/2013 [place] MMR 12/12/1995 [place] TD (ADULT), 2 LF TETANUS TOXOID,* 12/12/1995 [place] TDAP 09/09/2016 [place] <C> Family history: father had a stroke 15 years ago, no other significant family hx Physical exam: Vitals: Blood pressure: 131/85 (06/12/2023 12:00) Pulse: 74 (06/12/2023 12:00) Respiration: 18 (06/12/2023 12:00) Temperature: 99 F [37.2 C] (06/12/2023 12:00) Weight: 157.3 lb [71.35 kg] (06/12/2023 12:00) Pulse Oximetry: 97% (06/12/2023 12:00) General: sitting in chair, NAD Neuro: alert and fully oriented, no focal deficits Cardio: RRR, no murmurs Pulm: CTAB Ext: no peripheral edema, moving all extremities Radiology reports: Last CXR: Impression for CHEST 2 VIEWS PA AND LAT, 06/12/23, case [id number] Incidentally noted is an azygos lobe. Chest otherwise unremarkable. No calcified pleural plaque identified on this plain film examination. Lungs are clear without infiltrate or pleural effusion. Heart size and pulmonary vascularity within normal limits. No comparison exam. Last chest CT: No Reports found CT Angiogram in last year: No data available Pet Scan: No data available HGB 16.6 (06/12/23) PLT 258 (06/12/23) WBC 5.32 (06/12/23) INR - NONE FOUND PFT Report (06/26/23): Procedure: MIN_PFT PFT Measurement ti09:24AM Spirometry Ref LLN Pre ZScore% Ref FVC L 4.36 3.51 4.66 0.58 106.9 FEV 1 L 3.58 2.83 3.49 -0.20 97.5 FEV1/FVC% 82 73 75 -1.27 PEF L/s 8.92 6.93 8.91 -0.01 99.9 Z-Score Pre-Bronchodilator FVC L 0.58 FEV 1 L -0.20 FEV1/FVC % -1 Diffusing Capacity Ref LLN Pre %Ref Z-Score Z-Score DLCO_SBml/(min*m28.5822.27 26.99 94.4 -0.39 -0.39 DLCOcSBml/(min*m28.5822.27 25.96 90.8 -0.65 -0.65 Parameter FVC FEV1 FEV1/FVC TLC RV DLCO_SB 06/26/2023 4.66 3.49 75 26.99 Interpretation: Spirometry is Normal. Diffusing Capacity is Normal. Labs, tests and imaging results listed in pulmonary note were discussed with patient. Recommendation/plan: The patient is a(n) 37 year old MALE with history of depression and adjustment disorder who presents to pulmonary clinic for evaluation of dyspnea on exertion and wheezing in the context of exposure to chemicals during the [place]. # CESPEDES PFT's done today (06/26/23) without significant obstruction. Given possible wheezing in the past associated with exercise and exposure to cats and CESPEDES there is c/f possible exercise-induced asthma. Also on the differential is constrictive bronchiolitis given burn pit exposure. Will send patient with inhaler to use prn for SOB and will schedule exercise PFT's to evaluate for exercise-induced asthma. 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 - explained to patient that this pain is likely benign and unrelated to above issue and requires no further evaluation I have discussed the patient with my supervising/collaborating practitioner, Dr. Antoine, and they agree with my assessment/plan. Frandy Chaparro MD Internal Medicine, PGY1 If you have questions or urgent need to contact the pulmonary service, please refer to the regional extension service specialist-calendar. /es/ FRANDY CHAPARRO PGY1 Signed: 06/26/2023 11:28 Receipt Acknowledged By: 06/26/2023 11:30 /bhupendra/ YNES ANTOINE MD [facility] STAFF PHYSICIAN 06/26/2023 ADDENDUM STATUS: COMPLETED 37 year old man with a history of heavy deployment related exposures here for evaluation of dypsnea. PFTs normal, but has significant allergy history and occasional wheezing with heavy exercise. Will prescribe laba/ics per LORRIE, and obtain an exercise asthma test to evaluate for exercise induced bronchospasm. If no improvement with inhaler and normal exercise then plan for a CT chest with expiratory cuts to evaluate for any evidence of constrictive bronchiolitis. /bhupendra/ YNES ANTOINE MD [facility] STAFF PHYSICIAN Signed: 06/26/2023 11:35 FRANDY CHAPARRO [facility]
--- OUTSIDE RECORDS SUMMARY | 2023-08-13 20:17 | XMS_ITS | Encounter Summary ---
Author Name [facility] Organization [facility] Address [address] [place] [address] Support Name Relationship Address Phone CASTRO PEARSON Next of Kin [address] [place] [address] CASTRO PEARSON Emergency Contact [address] [place] [address] Insurance Providers: All historical and [...] DOMINGA SEGUNDO SERVI JOSSELIN May 22, 2021 [id number] [phone] LILI,PH ILLIP PATIENT [place] PREFERRED PROVIDER ORGANIZAT ION (PPO) BAILI WICK SERVI JOSSELIN May 22, 2021 [id number] [phone] LILI,PH ILLIP PATIENT PRIME THERAPEUTI CS PRESCRIPT ION RX PLAN May 22, 2021 [facility] [id number] [phone] LILI,PH ILLIP PATIENT Selected Encounter This section includes the information on record at [place] for the Encounter. Date/Time Encounter Type Encounter Description Reason Provider Source Jun 26, 2023 11:30 AM OFF/OP EST AUGUST X REQ PHY/QHP GENERAL INTERNAL MEDICINE ICD-10-CM J45.909 Unspecified asthma, uncomplicated ROESER,NATALYA M IHE Encounter Template Text not used by [place] Assessments - Encounter Diagnoses This section includes the primary and secondary diagnoses documented for the Encounter. Date/Time Primary/Secondary Diagnosis Diagnosis Name Provider Source Jun 26, 2023 11:42 AM PRIMARY Unspecified asthma, uncomplicated NATALYA MORALES [facility] Plan of Treatment: Future Appointments (+ 6 months) and Future Tests (+/- 45 days) The Plan of Treatment section includes future care activities for the patient [facility] [place] [facility]. This section includes future appointments and future orders which are active, pending or scheduled. Future Appointments This section includes appointments that were scheduled to occur 6 months from the date of the Encounter, up to a maximum of 20 appointments. The data comes from all [facility]. Appointment Date/Time Appointment Type Appointme nt Facility Name Jul 02, 2023 01:00 PM AMBULATORY - NONE [facility] Jul 17, 2023 10:30 AM AMBULATORY - MEDICINE [facility] Jul 22, 2023 09:34 PM AMBULATORY - MEDICINE [facility] August 20, 2023 01:20 PM AMBULATORY - MEDICINE [facility] Dec 09, 2023 02:30 PM AMBULATORY - SURGERY [facility] Active, Pending, and Scheduled Orders This section includes a listing of several types of active, pending, and scheduled orders, including clinic medications orders, diagnostic test orders, procedure orders and consult orders; where the start date of the order is 45 days before the date of the Encounter or 45 days after the date of theEncounter. The data comes from all [facility]. Test Date/Time Test Type Test Details Facility Name May 15, 2023 12:12 PM Consult Order COMMUNITY CARE-SLEEP MEDICINE Cons Spike [employer] [facility] Jul 23, 2023 12:00 AM Laboratory - [...] PLASMA SP ONCE [facility] Lab Results: +/- 30 days of the encounter This section includes the Chemistry and Hematology Lab Results on record with [place] for the patient. Radiology Reports and Pathology Reports are provided separately, in subsequent sections. Lab Results This section contains the Chemistry/Hematology Results that were resulted 30 days before or 30 daysafter the date of the Encounter. Date/Time Source Result Type Result - Unit Interpretation Reference Range Comment Jun 12, 2023 12:35 PM [facility] HEMOGLOBIN A1C Specimen Type: BLOOD Comment: [...] Jun 12, 2023 12:34 PM Reporting Lab: [facility] [id number] Performing Lab: [facility] [id number] HEMOGLOBIN A1C 5.1 4.0-6.0 Jun 12, 2023 12:35 PM [facility] ANTI-HEP C(EIA) Specimen Type: SERUM No comment entered. Ordering Provider: RADHA HAYES Report Released Date/Time: Jun 12, 2023 12:34 PM Reporting Lab: [facility] [id number] Performing Lab: [facility] [address] ANTI-HEP C(EIA) NEGATIVE NEGATIVE Jun 12, 2023 12:35 PM [facility] HIV AG/AB SCREEN Specimen Type: SERUM No comment entered. Ordering Provider: RADHA HAYES Report Released Date/Time: Jun 12, 2023 12:34 PM Reporting Lab: [facility] [id number] Performing Lab: [facility] [address] HIV AG/AB SCREEN NEGATIVE NEGATIVE Jun 12, 2023 12:35 PM [facility] TSH W/REFLEX TO FREE T4 Specimen Type: PLASMA No comment entered. Ordering Provider: RADHA HAYES Report Released Date/Time: Jun 12, 2023 12:34 PM Reporting Lab: [facility] [id number] Performing Lab: [facility] [address] TSH 0.45 0.35-4.94 Jun 12, 2023 12:35 PM [facility] VIT D 25-OH,TOTAL Specimen Type: SERUM No comment entered. Ordering Provider: RADHA HAYES Report Released Date/Time: Jun 12, 2023 12:34 PM Reporting Lab: [facility] [address] Performing Lab: [facility] [address] VIT D 25-OH,TOTAL 30 12-50 Jun 12, 2023 12:35 PM [facility] IRON GROUP Specimen Type: SERUM Comment: [...] Jun 12, 2023 12:34 PM Reporting Lab: [facility] [id number] Performing Lab: [facility] [address] IRON 120 65-175 TIBC,CALCULATED 313 250-425 FERRITIN pending IRON SATURATION 38 20-50 TRANSFERRIN 250 163-382 Jun 12, 2023 12:35 PM [facility] ELP/IMMFIX,SERUM PANEL Specimen Type: SERUM Comment: [...] Jun 12, 2023 12:34 PM Reporting Lab: [facility] [address] Performing Lab: [facility] [address] PROTEIN,TOTAL 6.9 6.0-8.3 .ALBUMIN FRACTION 4.57 3.66-4.78 .ALPHA 1 FRACTION 0.25 0.14-0.38 .ALPHA 2 FRACTION 0.61 0.50-0.90 .BETA 1 FRACTION 0.39 0.33-0.55 .BETA 2 FRACTION 0.23 0.20-0.52 .GAMMA FRACTION 0.85 0.58-1.72 .TOTAL PROTEIN 6.9 6.0-8.3 .INTERPRETATION NO MONOCLONALS DETECTED Jun 12, 2023 12:35 PM [facility] COMPREHENSIVE METABOLIC PANEL+MG Specimen Type: PLASMA [...] Jun 12, 2023 12:34 PM Reporting Lab: [facility] [phone] Performing Lab: [facility] Jun 12, 2023 12:35 PM [facility] CBC & DIFF Specimen Type: BLOOD Comment: Automated Differential Performed Ordering Provider: RADHA HAYES Report Released Date/Time: Jun 12, 2023 12:34 PM Reporting Lab: [facility] [address] Performing Lab: [facility] [address] WBC 5.32 4.0-11.0 RBC 5.94 4.6-6.2 HGB [...] 0.01 0-0.1 Jun 12, 2023 10:30 AM [facility] URINALYSIS Specimen Type: URINE No comment entered. Ordering Provider: YANIRA BERTRAND Report Released Date/Time: Jun 12, 2023 10:01 AM Reporting Lab: [facility] [address] Performing Lab: [facility] [address] URINE COLOR LIGHT-YELLOW SPECIFIC GRAVITY 1.011 1.003-1.03 [...] 92 127/79 16 97 0 153.5 24 [facility] Social History: Smoking Status (Most current) and Tobacco Use (All prior to encounter date) This section includes the most current, and the historical, smoking and tobacco- related health factors from the [place] facility where the Encounter took place. Current Smoking Status This section includes the most current smoking, or tobacco-related health factor, from the [place] facility where the Encounter took place. Date/Time Current Smoking Status Comment Parag lima Sep 24, 2022 01:00 PM VA-TOBACCO NEVER USED [facility] Tobacco Use History This section includes a history of the smoking, or tobacco-related health factors, that were collected on or before the date of the Encounter. The data comes from the [place] facility where the Encounter took place. Date/Time [...] LIFETIME NON-TOBACCO USER [facility] Radiology Reports: +/- 30 days of [...] the Encounter. The data comes from all [facility] facilities. Date/Time Radiology Report Provider Source Jun 12, 2023 10:35 AM CHEST 2 VIEWS PA A ND LAT: AFTAB PEARSON [id number] -1985 M Exm Date: JUN 12, 2023@10:35 Req Phys: CAROLINA FRANCOIS Pat Loc: [facility] C&P ALESSANDRO (Req'g Loc Img Loc: MAIN X-RAY Service: Unknown (Case [id number] COMPLETE) CHEST 2 VIEWS PA AND LAT (RAD Detailed) CPT:05418 Reason for Study: H/O asbestos exposure approximately 10 years ago. Clinical History: [place] IS NOT under investigation for COVID-19 or is COVID-19 negative H/O asbestos exposure approximately 10 years ago. Responsible provider name and phone number to notify for critical findings if other than user placing the order and pager listed below: User placing orders pager: LAST CREATININE 1.0 (12/26/22) Report Status: Verified Date Reported: JUN 12, 2023 Date Verified: JUN 12, 2023 Computer Forensics Analyst E-Sig:/ES/VERONICA FARLEY MD Report: EXAMINATION: CHEST 2 [...] Primary Interpreting Staff: VERONICA FARLEY MD, RADIOLOGIST (Computer Forensics Analyst) /RTS VERONICA FARLEY [facility] Jun 12, 2023 10:35 AM LUMBAR SPINE MIN 4 VIEWS: AFTAB PEARSON [id number] -1985 M Exm Date: JUN 12, 2023@10:35 Req Phys: ALESSANDROCAROLINA POLK Pat Loc: [facility] C[facility]P ALESSANDRO (Req'g Loc Img Loc: MAIN X-RAY Service: Unknown (Case [id number] COMPLETE) LUMBAR SPINE MIN 4 VIEWS (RAD Detailed) CPT:24719 Proc Modifiers : Standing Reason for Study: Chronic lumbalgia 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 [employer] Clinical History: [place] IS NOT under investigation for COVID-19 or [...] 12, 2023 Date Verified: JUN 12, 2023 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 [employer] Clinical History: [place] IS NOT under investigation for COVID-19 or is COVID-19 negative 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 No significant degenerative changes of the knee. No significant joint effusion. No comparison exam. Primary Interpreting Staff: VERONICA FARLEY MD, RADIOLOGIST (Computer Forensics Analyst) /VERONICA MACIEL [facility] Jun 12, 2023 10:34 AM KNEE LEFT 4 VIEWS: AFTAB PEARSON [id number] -1985 M Exm Date: JUN 12, 2023@10:34 Req Phys: CAROLINA FRANCOIS Pat Loc: [facility] C&P ALESSANDRO (Req'g Loc Img Loc: MAIN X-RAY Service: Unknown (Case [id number] COMPLETE) KNEE LEFT 4 VIEWS (RAD Detailed) CPT:37950 Reason for Study: Chronic bilateral knee pain [...] 12, 2023 Date Verified: JUN 12, 2023 Computer Forensics Analyst E-Sig:/DAVID/VERONICA FARLEY MD Report: EXAMINATION: KNEE LEFT 4 VIEWS 06/12/2023 10:34 AM INDICATION: 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 No significant degenerative changes of the knee. No significant joint effusion. Primary Interpreting Staff: VERONICA FARLEY MD, RADIOLOGIST (Computer Forensics Analyst) /RTS VERONICA FARLEY [facility] Encounter Notes: All associated encounter notes This section contains the clinical notes associated to the Encounter. Date/Time Encounter Note(s) Provider Source Jun 26, 2023 11:36 AM INTERNAL MEDICINE OUTPATIENT NOTE: LOCAL TITLE: MEDICINE CLINIC NURSING NOTE STANDARD TITLE: INTERNAL MEDICINE OUTPATIENT NOTE DATE OF NOTE: JUN 26, 2023@11:36 ENTRY DATE: JUN 26, 2023@11:36:49 AUTHOR: NATALYA MORALES EXP COSIGNER: URGENCY: STATUS: COMPLETED TYPE OF VISIT: Nurse Clinic REASON FOR VISIT: ALLERGIES: FACILITY ALLERGY/ADR -------- No Remote Allergy/ADR Data available for this patient [facility] No Known Allergies EDUCATION: PARTICIPANT(s): Inhaler Teaching Identified Learning Needs/Topic: Disease/Condition: Asthma Medication/Supplies: Budesonide/Formoterol (Symbicort), MDI (meter-dose inhaler) OBJECTIVES/CONTENT: Patient will verbalize purpose of inhaler and its indication(s), Patient will demonstrate proper use of inhaler, Patient will verbalize how to recognize when doses are getting low TEACHING STRATEGY: 1:1, Audio/Visual, Written/printed materials PATIENT/FAMILY RESPONSE (OUTCOME): Verbalizes critical information about the topic FOLLOW-UP RECOMMENDED: None needed /david/ NATALYA MORALES LPN LICENSE PRACTICAL NURSE Signed: 06/26/2023 11:45 NATALYA MORALES [facility]
--- OUTSIDE RECORDS SUMMARY | 2023-08-13 20:17 | XMS_ITS | Encounter Summary ---
Author Name [employer] Organization [facility] [employer] [employer] Address [address] [place] [address] Support Name Relationship Address Phone CASTRO PEARSON Next of Kin [address] [place] [address] CASTRO PEARSON Emergency Contact [address] [place] [address] Insurance Providers: All historical and [...] DOMINGA SEGUNDO SERVI JOSSELIN May 22, 2021 [id number] [phone] LILI,PH ILLIP PATIENT [place] PREFERRED PROVIDER ORGANIZAT ION (PPO) TRAELI WICK SERVI JOSSELIN May 22, 2021 [id number] [phone] LILI,PH ILLIP PATIENT PRIME THERAPEUTI CS PRESCRIPT ION RX PLAN May 22, 2021 [facility] [id number] [phone] LILI,PH ILLIP PATIENT Selected Encounter This section includes the information on record at [place] for the Encounter. Date/Time Encounter Type Encounter Description Reason Provider Source Jul 22, 2023 09:34 PM EMERGENCY DEPT VISIT [facility] EMERGENCY DEPT ICD-10-CM W54.0XXA Bitten by dog, initial encounter JURAO,LARRY R IHE Encounter Template Text not used by [facility] Assessments - Encounter Diagnoses This section includes the primary and secondary diagnoses documented for the Encounter. Date/Time Primary/Secondary Diagnosis Diagnosis Name Provider Source Jul 22, 2023 11:31 PM PRIMARY Bitten by dog, initial encounter LARRY HANEY [facility] Jul 22, 2023 11:31 PM SECONDARY Encounter for immunization BREANN PISANO [facility] Plan of Treatment: Future Appointments (+ 6 months) and Future Tests (+/- 45 days) The Plan of Treatment section includes future care activities for the patient from all [place] [facility] This section includes future appointments and future orders which are active, pending or scheduled. Future Appointments This section includes appointments that were scheduled to occur 6 months from the date of the Encounter, up to a maximum of 20 appointments. The data comes from all [facility]. Appointment Date/Time Appointment Type Appointme nt Facility Name August 20, 2023 01:20 PM AMBULATORY - MEDICINE [facility] Dec 09, 2023 02:30 PM AMBULATORY - SURGERY [facility] Active, Pending, and Scheduled Orders This section includes a listing of several types of active, pending, and scheduled orders, including clinic medications orders, diagnostic test orders, procedure orders and consult orders; where the start date of the order is 45 days before the date of the Encounter or 45 days after the date of theEncounter. The data comes from all [facility]. Test Date/Time Test Type Test Details Facility Name Jul 23, 2023 12:00 AM Laboratory - Chemi stry Order TTG AB,IGA SERUM SP ONCE [facility] Jul 23, 2023 12:00 AM Laboratory - Chemi stry Order IGA PLASMA SP ONCE [facility] Jul 23, 2023 12:00 AM Laboratory - Chemi stry Order FOOD ALLERGY PROFILE SERUM SP ONCE [facility] Jul 23, 2023 12:00 AM Laboratory - Chemi stry Order C-REACTIVE PROTEIN PLASMA SP ONCE [facility] Vital Signs: All taken on the encounter date This section contains inpatient and outpatient Vital Signs collected on the date of the Encounter. Date/Time Temperature Pulse Blood Pressure Respiratory Rate SP02 Pain Height Weight Body Mass Index Source Jul 22, 2023 09:38 PM 98.4 [facility] Jul 22, 2023 09:36 PM 92 118/78 16 98 7 [facility] Immunizations: All administered on the encounter date This section contains immunizations associated to the Encounter. Immunization Series Date Issued Reaction Comments TDAP Jul 22, 2023 Social History: Smoking Status (Most current) and Tobacco Use (All prior to encounter date) This section includes the most current, and the historical, smoking and tobacco- related health factors from the [facility] where the Encounter took place. Current Smoking Status This section includes the most current smoking, or tobacco-related health factor, from the [place] facility where the Encounter took place. Date/Time Current Smoking Status Comment Parag ity Sep 24, 2022 01:00 PM VA-TOBACCO NEVER USED [facility] Tobacco Use History This section includes a history of the smoking, or tobacco-related health factors, that were collected on or before the date of the Encounter. The data comes from the [place] facility where the Encounter took place. Date/Time Smoking Status/Tobacco Use Comment Nathaniel narinder Mar 28, 2021 02:33 PM VA-TOBACCO NEVER USED [facility] Jan 21, 2020 02:30 PM VA-TOBACCO NEVER USED [facility] Jun 15, 2018 09:56 AM VA-TOBACCO NEVER USED [facility] Jul 16, 2017 08:39 AM LIFETIME NON-TOBACCO USER [facility] September 05, 2016 05:17 PM LIFETIME NON-TOBACCO USER [facility] Feb 19, 2008 12:20 PM LIFETIME NON-TOBACCO USER [facility] Encounter Notes: All associated encounter notes This section contains the clinical notes associated to the Encounter. Date/Time Encounter Note(s) Provider Source Jul 22, 2023 10:58 PM NURSING EMERGENCY DEPT NOTE: LOCAL TITLE: EMERGENCY DEPT NURSING NOTE STANDARD TITLE: NURSING EMERGENCY DEPT NOTE DATE OF NOTE: JUL 22, 2023@22:58 ENTRY DATE: JUL 22, 2023@22:58:12 AUTHOR: SOY PISANO COSIGNER: URGENCY: STATUS: COMPLETED Emergency Department Discharge Education Personal Protective Equipment (PPE): None The patient was given education on the following: dog bite EDUCATION/TEACH BACK: [facility] discharge instructions have been reviewed with Patient AND had an opportunity to ask questions, has verbalized understanding, have received a copy of the [facility] instructions EDUCATIONAL LEVEL OF UNDERSTANDING: Patient was ready and receptive to education. BARRIERS TO LEARNING: No barriers identified Accompanied by: Family Mode of Transportation: Relative/friend EXIT ADDITIONAL EDUCATION GIVE: home meds in hand Wristband Removal:Patient wristband was removed and destroyed by being placed in the shred bin. Discharged to: [place] /bhupendra/ SOY PISANO RN REGISTERED NURSE Signed: 07/22/2023 22:59 SOY PISANO [facility] Jul 22, 2023 10:22 PM NURSING EMERGENCY DEPT NOTE: LOCAL TITLE: EMERGENCY DEPT NURSING NOTE STANDARD TITLE: NURSING EMERGENCY DEPT NOTE DATE OF NOTE: JUL 22, 2023@22:22 ENTRY DATE: JUL 22, 2023@22:22:10 AUTHOR: SOY PISANO EXP COSIGNER: URGENCY: STATUS: COMPLETED TETANUS DIPTHERIA aPERTUSIS (TDaP) VACCINATION Tdap Immunization Questionnaire Patient/Caregiver verbalizes understanding of the risks/benefits of Tdap vaccination. Yes Has patient had a Tetanus vaccination previously? Yes If yes, date:2016 Has patient had an allergic reaction to the vaccine previously? No If yes, type of reaction: Does patient have allergic reaction to Thimerasol? No (A Mercury-derivative, sometimes used in contact lens solution) Is patient or breast-feeding? 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: [employer] Lot: [id number] Exp Date: August 26, 2025 [facility]: [phone] Admin Route/Site: INTRAMUSCULAR/LEFT DELTOID Dosage: 0.5mL Vaccine Information Statement(s): TDAP (TETANUS, DIPHTHERIA, PERTUSSIS) VACCINE VIS Nov 24, 2020 ([place]) Order By: Berenice Matson Administered By: Soy Pisano /bhupendra/ SOY PISANO RN REGISTERED NURSE Signed: 07/22/2023 22:24 SOY PISANO [facility] Jul 22, 2023 10:08 PM EMERGENCY DEPT EDUCATION NOTE: LOCAL TITLE: EMERGENCY DEPT DISCHARGE INSTRUCTIONS STANDARD TITLE: EMERGENCY DEPT EDUCATION NOTE DATE OF NOTE: JUL 22, 2023@22:08:26 ENTRY DATE: JUL 22, 2023@22:08:26 AUTHOR: LARRY HANEY EXP COSIGNER: URGENCY: STATUS: COMPLETED DISCHARGE INSTRUCTIONS This information is in addition to what you have already received as part of your discharge instructions. Special Information A prescription for an antibiotic called Augmentin has been provided, please take as instructed. IMPORTANT MEDICATION INFORMATION -Your medication list includes any medications that were recently prescribed but not filled by the Pharmacy (PENDING Medicines). -Included are any known ACTIVE Medicines. Please review this list to make sure it is accurate, if this list does not match the current medications you are taking please follow-up with your Primary Care Team to have your Medication List reviewed. Pending Medications AMOXICILLIN 875/CLAV K 125MG TAB \ Sig: TAKE 1 TABLET BY MOUTH TWICE A DAY\Indication: DOG BITE IBUPROFEN 800MG TAB \ Sig: TAKE ONE TABLET BY MOUTH EVERY 8 HOURS\Indication: FOR PAIN Active Medications BISACODYL 5MG EC TAB TAKE TWO TABLETS BY MOUTH ONCE FOR COLON PREP BUDESONIDE 160/FORMOTER 4.5MCG 120D INH INHALE 1 PUFF BY INHALATION NEEDED FOR SHORTNESS OF BREATH - MAX 12 PUFFS DAILY ### BUPROPION HCL 300MG 24HR SA TAB TAKE ONE TABLET BY MOUTH EVERY MORNING FOR MOOD CITALOPRAM HYDROBROMIDE 20MG TAB TAKE ONE AND ONE-HALF TABLETS BY MOUTH EVERY DAY FOR ANXIETY COLON ELECTROLYTE LAVAGE PWD FOR SOLN TAKE ONE CONTAINER BY MOUTH DIRECTED FOR COLON PREP DIPHENHYDRAMINE CAP,ORAL 25MG MOUTH EVERY DAY NEEDED (Non-VA Medication) HYDROXYZINE HCL 25MG TAB TAKE ONE TABLET BY MOUTH AT BEDTIME FOR SLEEP LACTASE 3000 UNT TAB TAKE ONE TABLET BY MOUTH FOUR TIMES A DAY NEEDED FOR LACTOSE INTOLERANCE LOPERAMIDE HCL 2MG CAP TAKE ONE CAPSULE BY MOUTH THREE TIMES A DAY NEEDED FOR DIARRHEA LORATADINE TAB,ORAL 10MG MOUTH EVERY DAY NEEDED (Non-VA Medication) SILDENAFIL CITRATE 100MG TAB TAKE ONE TABLET BY MOUTH ONCE NEEDED FOR ERECTILE DYSFUNCTION Medications Medications in the last 90 days [none] /bhupendra/ LARRY HANEY EMERGENCY PHYSICIAN Signed: 07/22/2023 22:08 LARRY HANEY [facility] Jul 22, 2023 10:06 PM EMERGENCY DEPT EDUCATION NOTE: LOCAL TITLE: EMERGENCY DEPT DISCHARGE INSTRUCTIONS STANDARD TITLE: EMERGENCY DEPT EDUCATION NOTE DATE OF NOTE: JUL 22, 2023@22:06:26 ENTRY DATE: JUL 22, 2023@22:06:26 AUTHOR: LARRY HANEY EXP COSIGNER: URGENCY: STATUS: COMPLETED DISCHARGE INSTRUCTIONS This information is in addition to what you have already received as part of your discharge instructions. Special Information A prescription for antibiotics has been provided, please take as instructed. IMPORTANT MEDICATION INFORMATION -Your medication list includes any medications that were recently prescribed but not filled by the Pharmacy (PENDING Medicines). -Included are any known ACTIVE Medicines. Please review this list to make sure it is accurate, if this list does not match the current medications you are taking please follow-up with your Primary Care Team to have your Medication List reviewed. Pending Medications IBUPROFEN 800MG TAB \ Sig: TAKE ONE TABLET BY MOUTH EVERY 8 HOURS\Indication: FOR PAIN Active Medications BISACODYL 5MG EC TAB TAKE TWO TABLETS BY MOUTH ONCE FOR COLON PREP BUDESONIDE 160/FORMOTER 4.5MCG 120D INH INHALE 1 PUFF BY INHALATION NEEDED FOR SHORTNESS OF BREATH - MAX 12 PUFFS DAILY ### BUPROPION HCL 300MG 24HR SA TAB TAKE ONE TABLET BY MOUTH EVERY MORNING FOR MOOD CITALOPRAM HYDROBROMIDE 20MG TAB TAKE ONE AND ONE-HALF TABLETS BY MOUTH EVERY DAY FOR ANXIETY COLON ELECTROLYTE LAVAGE PWD FOR SOLN TAKE ONE CONTAINER BY MOUTH DIRECTED FOR COLON PREP DIPHENHYDRAMINE CAP,ORAL 25MG MOUTH EVERY DAY NEEDED (Non-VA Medication) HYDROXYZINE HCL 25MG TAB TAKE ONE TABLET BY MOUTH AT BEDTIME FOR SLEEP LACTASE 3000 UNT TAB TAKE ONE TABLET BY MOUTH FOUR TIMES A DAY NEEDED FOR LACTOSE INTOLERANCE LOPERAMIDE HCL 2MG CAP TAKE ONE CAPSULE BY MOUTH THREE TIMES A DAY NEEDED FOR DIARRHEA LORATADINE TAB,ORAL 10MG MOUTH EVERY DAY NEEDED (Non-VA Medication) SILDENAFIL CITRATE 100MG TAB TAKE ONE TABLET BY MOUTH ONCE NEEDED FOR ERECTILE DYSFUNCTION Medications Medications in the last 90 days [none] /bhupendra/ LARRY HANEY EMERGENCY PHYSICIAN Signed: 07/22/2023 22:06 LARRY HANEY [facility] Jul 22, 2023 10:03 PM EMERGENCY DEPT EDUCATION NOTE: LOCAL TITLE: EMERGENCY DEPT DISCHARGE INSTRUCTIONS STANDARD TITLE: EMERGENCY DEPT EDUCATION NOTE DATE OF NOTE: JUL 22, 2023@22:03:25 ENTRY DATE: JUL 22, 2023@22:03:25 AUTHOR: LARRY HANEY EXP COSIGNER: URGENCY: STATUS: COMPLETED DISCHARGE INSTRUCTIONS IMPORTANT: We examined and treated you today on an emergency basis only. This was not a substitute for, or an effort to provide, comprehensive medical care. In most cases, you must let your healthcare provider check you again. Tell your healthcare provider about any new or lasting problems. We cannot recognize and treat all injuries or illnesses in one Emergency Department visit. After you leave, you should follow the instructions below. You were treated today by Larry Haney, . Special Information Today you are seen the emergency department for dog bite. We examined your hand and finger, and although there is a wound there, we typically do not suture these close due to an increased risk of infection. Dressing was placed, and pain medications were provided. Please take the ibuprofen at home every 8 hours as prescribed for pain and for inflammation. Because her dog is already vaccinated against rabies, you do not need any rabies vaccinations at this time, but your tetanus vaccine was updated. If you experience worsening pain, fever, numbness or tingling, difficulty moving your hand, or any other new or concerning symptoms, please return to the emergency department immediately. See your primary care doctor in the next week for further care. This Information Is About Your Follow Up Care We recommend that you follow up with your Primary Care Team to have an appointment within the next 1 week. Call to arrange this appointment. If you are not feeling better and improving as discussed or if you have any questions please contact your Primary Care Provider. Future Appointments 07/23/2023 at 1:00pm [facility] 07/23/2023 at 1:20pm [facility] 08/11/2023 at 9:00am V23 [facility] PT 77 F2F EVAL 12/09/2023 at 2:30pm [facility] UROL RTC 2 DUESMAN This Information Is About Your Illness and Diagnosis DOG BITE Dog bites can vary from a small puncture wound to a large traumatic injury. A dog bite can cause an infection. We treated the wound according to its size and risk of infection. Another risk associated with a dog bite is rabies. Rabies is a virus passed through the saliva of a sick animal. Rabid animals are more likely to bite people. Your health care provider, with possible help from the state or local health department, will decide if you need a rabies vaccination. The decision to start the series of vaccines is also based on lab tests and the health of the dog that bit you. Please follow these instructions: -If your wound was not sutured, soak your wound in warm, mildly soapy water. Soak three times a day, for 15 minutes each. -Take or apply any medicines your health care provider prescribed exactly as directed. -As the wound heals, protect it from the sun. Sun exposure causes more scarring. -Keep all follow-up appointments. Prevent dog bites in the future: -Never leave an or child alone with a dog, regardless of how much you trust the dog. Dog bites most often occur to children by the family pet. -Before you pet a dog, let it approach you and smell you. Put your hand out in a fist (fingers tucked in). Pet it under its chin, not on its head. -Do not approach or bother a dog if it is eating, sleeping, or caring for its puppies. -Do not try to separate fighting dogs. -Before buying or adopting a dog, research the breed to make sure it is right for your family. Take the dog to obedience training. -Do not go near strange or sick dogs. If a strange dog approaches you: -Stand still. Do not run and scream. -If the dog pushes you down, roll into a ball and clasp your hands behind your neck. If the dog does not think you are a threat, it will usually go away. Contact your health care provider as soon as possible if you have any of the following: -flu-like symptoms: weakness or general discomfort, fever, headache, with a prickly feeling around the wound. -signs of infection: -increased drainage or bleeding from the wound. -increased redness or swelling from the wound. -red streaks from the wound. -foul smell or pus from the dressing or wound. -chills or fever. -any new or bothersome symptoms. IMPORTANT MEDICATION INFORMATION -Your medication list includes any medications that were recently prescribed but not filled by the Pharmacy (PENDING Medicines). -Included are any known ACTIVE Medicines. Please review this list to make sure it is accurate, if this list does not match the current medications you are taking please follow-up with your Primary Care Team to have your Medication List reviewed. Pending Medications IBUPROFEN 800MG TAB \ Sig: TAKE ONE TABLET BY MOUTH EVERY 8 HOURS\Indication: FOR PAIN Active Medications BISACODYL 5MG EC TAB TAKE TWO TABLETS BY MOUTH ONCE FOR COLON PREP BUDESONIDE 160/FORMOTER 4.5MCG 120D INH INHALE 1 PUFF BY INHALATION NEEDED FOR SHORTNESS OF BREATH - MAX 12 PUFFS DAILY ### BUPROPION HCL 300MG 24HR SA TAB TAKE ONE TABLET BY MOUTH EVERY MORNING FOR MOOD CITALOPRAM HYDROBROMIDE 20MG TAB TAKE ONE AND ONE-HALF TABLETS BY MOUTH EVERY DAY FOR ANXIETY COLON ELECTROLYTE LAVAGE PWD FOR SOLN TAKE ONE CONTAINER BY MOUTH DIRECTED FOR COLON PREP DIPHENHYDRAMINE CAP,ORAL 25MG MOUTH EVERY DAY NEEDED (Non-VA Medication) HYDROXYZINE HCL 25MG TAB TAKE ONE TABLET BY MOUTH AT BEDTIME FOR SLEEP LACTASE 3000 UNT TAB TAKE ONE TABLET BY MOUTH FOUR TIMES A DAY NEEDED FOR LACTOSE INTOLERANCE LOPERAMIDE HCL 2MG CAP TAKE ONE CAPSULE BY MOUTH THREE TIMES A DAY NEEDED FOR DIARRHEA LORATADINE TAB,ORAL 10MG MOUTH EVERY DAY NEEDED (Non-VA Medication) SILDENAFIL CITRATE 100MG TAB TAKE ONE TABLET BY MOUTH ONCE NEEDED FOR ERECTILE DYSFUNCTION Medications Medications in the last 90 days [none] YOU ARE THE MOST IMPORTANT FACTOR IN YOUR RECOVERY. Follow the above instructions carefully. Take your medicines as prescribed. If you do not understand any of your medicines, please ask questions. If you have any outstanding tests from the emergency department, please contact your provider to review them in the next 3-5 days. If you have new symptoms, feel worse, or are not getting better as discussed, call to discuss your health questions and arrange for follow-up care, or return to the Emergency Room IF YOU ARE EXPERIENCING A MEDICAL EMERGENCY CALL 911 OR GO TO THE NEAREST EMERGENCY ROOM // LARRY HANEY EMERGENCY PHYSICIAN Signed: 07/22/2023 22:03 LARRY HANEY [facility] Jul 22, 2023 10:00 PM PHYSICIAN EMERGENCY DEPT NOTE: LOCAL TITLE: EMERGENCY DEPT NOTE STANDARD TITLE: PHYSICIAN EMERGENCY DEPT NOTE DATE OF NOTE: JUL 22, 2023@22:00 ENTRY DATE: JUL 22, 2023@23:22:02 AUTHOR: LARRY HANEY EXP COSIGNER: URGENCY: STATUS: COMPLETED Personal Protective Equipment (PPE): RN used PPE during every encounter with the patient, MD/PA/ANIMAL CONTROL LICENSING WORKER used PPE during every encounter with the patient Nurse's note reviewed. Chief Complaint: The patient is a 37 y/o MALE complaining of: Dog bite TDAP/TD Immunizations ADMINISTERED Immunization Series Date Facility Reaction Info TDAP 07/22/2023 [place] TDAP 09/09/2016 [place] <C> CONTRAINDICATED No data available REFUSED ======= No data available <C> See the Detailed Immunizations Health Summary Component[DIM] for Comments * Value is truncated; see the Detailed Immunizations Health Summary Component[DIM] for complete text Covid-19 Immunizations ADMINISTERED Immunization Series Date Facility Reaction Info COVID-19 (PFIZER), MRNA, LNP-S, * 1 07/09/2020 [place] <C> COVID-19 (PFIZER), MRNA, LNP-S, * 2 07/31/2020 [place] <C> COVID-19 (PFIZER), MRNA, LNP-S, * 3 03/23/2021 [place] <C> COVID-19 (PFIZER), MRNA, LNP-S, * 1 06/12/2023 [place] CONTRAINDICATED No data available REFUSED ======= No data available <C> See the Detailed Immunizations Health Summary Component[DIM] for Comments * Value is truncated; see the Detailed Immunizations Health Summary Component[DIM] for complete text History of present illness: Patient was in otherwise normal state of health, was bitten by his own, previously rabies vaccinated dog. Bite is to the left middle finger, some scant bleeding and pain but otherwise tolerating well. No other major injuries. Last tetanus was in 2017. Allergies: Patient has answered NKA Review of Systems: 10 point ROS reviewed and otherwise negative unless stated in HPI. Past Medical History: Active problems - Computerized Problem List is the source for the followin. Tinea Unguium 2. Acne 3. Adjustment disorder with depressed mood 4. Depression 5. Social phobia 6. Temporomandibular joint disorder 7. 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 Air pollution (SNOMED CT 688063707) 9. Exposure to asbestos (SNOMED CT 233416661) - In Dorm in [place] 10. Exposure to aromatic benzene (SNOMED CT 817055849591655) - JET FUEL contaminant 11. Exposed to tobacco smoke at work (SNOMED CT 215983886) - Passive smoke 12. Exposed to noise (SNOMED CT 2368548) - Acoustical Trauma 13. Shortness of breath (SNOMED CT 147551161) - CESPEDES 14. History of palpitations (SNOMED CT 639601698) - NOS 15. Diarrhea (SNOMED CT 22423281) - Constant issue 16. Adjustment disorder (SNOMED CT 47449852) - WITH DEPRESSED MOOD 17. Wheezing - Wheezing when running not seen by Pulmonary 18. 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 Exposure to potentially hazardous substance 20. Finding of frequency of urination Medications: Active Outpatient Medications (excluding Supplies): Outpatient Medications Status 1) AMOXICILLIN 875/CLAV K 125MG TAB TAKE 1 TABLET BY ACTIVE MOUTH TWICE A DAY UNTIL GONE FOR DOG BITE 2) BISACODYL 5MG EC TAB TAKE TWO TABLETS BY MOUTH ONCE ACTIVE FOR COLON PREP 3) BUDESONIDE 160/FORMOTER 4.5MCG 120D INH INHALE 1 PUFF ACTIVE BY INHALATION NEEDED FOR SHORTNESS OF BREATH - MAX 12 PUFFS DAILY ### 4) BUPROPION HCL 300MG 24HR SA TAB TAKE ONE TABLET BY ACTIVE MOUTH EVERY MORNING FOR MOOD 5) CITALOPRAM HYDROBROMIDE 20MG TAB TAKE ONE AND ACTIVE ONE-HALF TABLETS BY MOUTH EVERY DAY FOR ANXIETY 6) COLON ELECTROLYTE LAVAGE PWD FOR SOLN TAKE ONE ACTIVE CONTAINER BY MOUTH DIRECTED FOR COLON PREP 7) HYDROXYZINE HCL 25MG TAB TAKE ONE TABLET BY MOUTH AT ACTIVE BEDTIME FOR SLEEP 8) IBUPROFEN 800MG TAB TAKE ONE TABLET BY MOUTH EVERY 8 ACTIVE HOURS FOR PAIN 9) LACTASE 3000 UNT TAB TAKE ONE TABLET BY MOUTH FOUR ACTIVE TIMES A DAY NEEDED FOR LACTOSE INTOLERANCE 10) LOPERAMIDE HCL 2MG CAP TAKE ONE CAPSULE BY MOUTH ACTIVE THREE TIMES A DAY NEEDED FOR DIARRHEA 11) SILDENAFIL CITRATE 100MG TAB TAKE ONE TABLET BY MOUTH ACTIVE ONCE NEEDED FOR ERECTILE DYSFUNCTION Non-VA Medications Status 1) Non-VA DIPHENHYDRAMINE HCL 25MG CAP 25MG MOUTH EVERY ACTIVE DAY NEEDED 2) Non-VA LORATADINE 10MG TAB 10MG MOUTH EVERY DAY ACTIVE NEEDED 13 Total Medications Physical Exam: BP: 118/78 (07/22/2023 21:36) P: 92 (07/22/2023 21:36) R: 16 (07/22/2023 21:36) T: 98.4 F [36.9 C] (07/22/2023 21:38) O2 Sats: 98% (07/22/2023 21:36) General: well developed, well nourished, NAD Skin: V-shaped laceration, 2 cm in total length, middle of the dorsum of the left middle finger Neck: supple Eye: PERRLA, EOMI ENT: oropharynx clear Cardiovascular: RRR, no murmur appreciated, radial pulses bilateral and symmetric Respiratory: Lungs - clear to auscultation bilaterally, resonant throughout Neuro: alert and oriented, grossly non-focal, sensation intact Full range of motion and sensation to the left middle finger, full strength to the left hand across all digits. Extremities: No evidence of tendon rupture noted to the fingers of the left hand, full range of motion in active flexion and extension ED Course/Medical Decision Making/Assessment: CPRS Notes/Labs Reviewed for Patient Encounter: Emergency department triage, emergency department nursing note, Diagnosis and Plan: Patient presents today with a bite wound to the left middle finger from his dog who is already vaccinated against rabies. Vital signs reviewed and all within normal limits. No evidence of tendinous injury, numbness or tingling, or loss of sensation to light touch noted to the finger. Overdue for a tetanus shot, ordered and administered in the emergency department today. Preference to heal by secondary intention due to the risk of infection with bite wounds, prescription for Augmentin provided given infection risk as well as the location of the tip of the finger. Patient heavily irrigated the region in the sink, wound dressed afterwards. Toradol for pain control. Patient to be discharged home with antibiotics as well as ibuprofen for pain control, return precautions discussed, primary care follow-up indicated for follow-up wound care. Disposition: Condition on discharge: Improved /es/ LARRY HANEY EMERGENCY PHYSICIAN Signed: 07/22/2023 23:27 LARRY HANEY [facility] Jul 22, 2023 09:47 PM NURSING EMERGENCY DEPT NOTE: LOCAL TITLE: EMERGENCY DEPT NURSING NOTE STANDARD TITLE: NURSING EMERGENCY DEPT NOTE DATE OF NOTE: JUL 22, 2023@21:47 ENTRY DATE: JUL 22, 2023@21:47:32 AUTHOR: SOY PISANO COSIGNER: URGENCY: STATUS: COMPLETED Nursing Focused Assessment: CHIEF COMPLAINT: Prior to arrival here was bit by his dog in the left hand. Wounds on hand are superfical. Hand cleansed with soap and water here. CWMS intact. Dog is UTD with shots. Last tetanus 2016 Allergies/ADR:Patient has answered NKA Additional allergies not listed: Vital Signs * Blood Pressure: 118/78 (07/22/2023 21:36) Heart Rate: 92 (07/22/2023 21:36) Respirations: 16 (07/22/2023 21:36) Temperature: 98.4 F [36.9 C] (07/22/2023 21:38) Pain: 7 (07/22/2023 21:36) Weight: 153.5 lb [69.63 kg] (06/26/2023 10:28) O2 Sats: 98% (07/22/2023 21:36) Tobacco use: No Alcohol use: Yes What type of alcohol are you using: social How often are you drinking alcohol: Any drugs besides what is prescribed or over the counter: No ABUSE/NEGLECT: No evidence of abuse/neglect REVIEW OF SYSTEM-FOCUSED ASSESSMENT Neurological: Alert Musculoskeletal: Left Upper Extremity: CWMS left hand intact /es/ SOY PISANO RN REGISTERED NURSE Signed: 07/22/2023 21:52 SOY PISANO [facility] Jul 22, 2023 09:39 PM NURSING EMERGENCY DEPT TRIAGE NOTE: LOCAL TITLE: EMERGENCY DEPARTMENT NURSING TRIAGE NOTE STANDARD TITLE: NURSING EMERGENCY DEPT TRIAGE NOTE DATE OF NOTE: JUL 22, 2023@21:39 ENTRY DATE: JUL 22, 2023@21:39:52 AUTHOR: JAYME MARY COSIGNER: URGENCY: STATUS: COMPLETED Emergency Department/Urgent Care Center Triage Patient age:37 Sex: MALE On arrival patient was: AMBULATORY Patient phone number: Allergies: Patient has answered NKA Subjective/Chief Complaint: Left hand dog bite that occurred about an hour ago.Dog is known and up to date in immunuzations.Pt TDAP is not up to date, last recorded TDAP 2016 and pt doesnt recall a more recent one .Pain 7/10. Objective: Bleeding controlled.Ambulating independently. The patient is not a fall risk. Vital Signs * Blood Pressure: 118/78 (07/22/2023 21:36) Heart Rate: 92 (07/22/2023 21:36) Respirations: 16 (07/22/2023 21:36) Temperature: 98.4 F [36.9 C] (07/22/2023 21:38) Pain: 7 (07/22/2023 21:36) Weight: 153.5 lb [69.63 kg] (06/26/2023 10:28) O2 Sats: 98% (07/22/2023 21:36) Emergency Severity Index (CAYDEN) level Level 3 Current Medications: Active Outpatient Medications (including Supplies): Active Outpatient Medications Status 1) BISACODYL 5MG EC TAB TAKE TWO TABLETS BY MOUTH ONCE ACTIVE FOR COLON PREP 2) BUDESONIDE 160/FORMOTER 4.5MCG 120D INH INHALE 1 PUFF ACTIVE BY INHALATION NEEDED FOR SHORTNESS OF BREATH - MAX 12 PUFFS DAILY ### 3) BUPROPION HCL 300MG 24HR SA TAB TAKE ONE TABLET BY ACTIVE MOUTH EVERY MORNING FOR MOOD 4) CITALOPRAM HYDROBROMIDE 20MG TAB TAKE ONE AND ACTIVE ONE-HALF TABLETS BY MOUTH EVERY DAY FOR ANXIETY 5) COLON ELECTROLYTE LAVAGE PWD FOR SOLN TAKE ONE ACTIVE CONTAINER BY MOUTH DIRECTED FOR COLON PREP 6) HYDROXYZINE HCL 25MG TAB TAKE ONE TABLET BY MOUTH AT ACTIVE BEDTIME FOR SLEEP 7) LACTASE 3000 UNT TAB TAKE ONE TABLET BY MOUTH FOUR ACTIVE TIMES A DAY NEEDED FOR LACTOSE INTOLERANCE 8) LOPERAMIDE HCL 2MG CAP TAKE ONE CAPSULE BY MOUTH ACTIVE THREE TIMES A DAY NEEDED FOR DIARRHEA 9) SILDENAFIL CITRATE 100MG TAB TAKE ONE TABLET BY MOUTH ACTIVE ONCE NEEDED FOR ERECTILE DYSFUNCTION Active Non-VA Medications Status 1) Non-VA DIPHENHYDRAMINE HCL 25MG CAP 25MG MOUTH EVERY ACTIVE DAY NEEDED 2) Non-VA LORATADINE 10MG TAB 10MG MOUTH EVERY DAY ACTIVE NEEDED 11 Total Medications Current Problems: Tinea Unguium (ICD-9-CM 110.1) Acne (ICD-9-CM 706.1) Adjustment disorder with depressed mood Depression ([facility] 22117045) Social phobia ([facility] 22379538) Temporomandibular joint disorder ([facility] 17175502) 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 ([facility] 480364831) Air pollution ([facility] 097815073) Exposure to asbestos ([facility] 287918495) Exposure to aromatic benzene ([facility] [id number]) Exposed to tobacco smoke at work ([facility] 22Exposed to noise ([facility] 2579030) Shortness of breath ([facility] 637878107) History of palpitations ([facility] 243871908) Diarrhea ([facility] 84912153) Adjustment disorder ([facility] 20444415) Wheezing ([facility] 43222750) Exposure to hazardous metal ([facility] [id number]) Exposure to potentially hazardous substaFinding of frequency of urination ([facility] 571024188) Identification of Seniors at Risk (ISAR):* Defer screen too young Suicide Screen: [place] Suicide Severity Rating Scale (C-SSRS) screener 1. Over the past month, have you wished you were or wished you could go to sleep and not wake up? No 2. Over the past month, have you had any actual thoughts of killing yourself? No 3. Over the past month, have you been thinking about how you might do this? Response not required due to responses to other questions. 4. Over the past month, have you had these thoughts and had some intention of acting on them? Response not required due to responses to other questions. 5. Over the past month, have you started to work out or worked out the details of how to kill yourself? Response not required due to responses to other questions. 6. If yes, at any time in the past month did you intend to carry out this plan? Response not required due to responses to other questions. 7. In your lifetime, have you ever done anything, started to do anything, or prepared to do anything to end your life (for example, collected pills, obtained a gun, gave away valuables, went to the roof but didn't jump)? No 8. If YES, was this within the past 3 months? Response not required due to responses to other questions. /bhupendra/ JAYME MARY VISE HAND NURSE Signed: 07/22/2023 21:45 JAYME MARY [facility]
--- OUTSIDE RECORDS SUMMARY | 2023-08-13 20:17 | XMS_ITS | Encounter Summary ---
Author Name [facility] Organization [employer] [facility] [employer] Address [address] [place] [address] Support Name Relationship Address Phone CASTRO PEARSON Next of Kin [address] [place] [address] CASTRO PEARSON Emergency Contact [address] [place] [address] Insurance Providers: All historical and [...] DOMINGA SEGUNDO SERVI JOSSELIN May 22, 2021 [id number] [phone] LILI,PH ILLIP PATIENT [place] PREFERRED PROVIDER ORGANIZAT ION (PPO) BAILI WICK SERVI JOSSELIN May 22, 2021 [id number] [phone] LILI,PH ILLIP PATIENT PRIME THERAPEUTI CS PRESCRIPT ION RX PLAN May 22, 2021 [facility] [id number] LILI,PH ILLIP PATIENT Selected Encounter This section includes the information on record at [place] for the Encounter. Date/Time Encounter Type Encounter Description Reason Pro vider Source Jun 30, 2023 04:21 PM Outpatient Encounter COMMUNITY CARE CONSULT IHE Encounter Template Text not used by [place] Plan of Treatment: Future Appointments (+ 6 months) and Future Tests (+/- 45 days) The Plan of Treatment section includes future care activities for the patient from all [place] [facility] This section includes future appointments and future orders which are active, pending or scheduled. Future Appointments This section includes appointments that were scheduled to occur 6 months from the date of the Encounter, up to a maximum of 20 appointments. The data comes from all [facility]. Appointment Date/Time Appointment Type Appointme nt Facility Name Jul 02, 2023 01:00 PM AMBULATORY - NONE [facility] Jul 17, 2023 10:30 AM AMBULATORY - MEDICINE [facility] Jul 22, 2023 09:34 PM AMBULATORY - MEDICINE [facility] August 20, 2023 01:20 PM AMBULATORY - MEDICINE [facility] Dec 09, 2023 02:30 PM AMBULATORY - SURGERY [facility] Active, Pending, and Scheduled Orders This section includes a listing of several types of active, pending, and scheduled orders, including clinic medications orders, diagnostic test orders, procedure orders and consult orders; where the start date of the order is 45 days before the date of the Encounter or 45 days after the date of theEncounter. The data comes from all [facility]. Test Date/Time Test Type Test Details Facility Name Jul 23, 2023 12:00 AM Laboratory - Chemi stry Order TTG AB,IGA SERUM SP ONCE [facility] Jul 23, 2023 12:00 AM Laboratory - Chemi stry Order IGA PLASMA SP ONCE [facility] Jul 23, 2023 12:00 AM Laboratory - Chemi stry Order FOOD ALLERGY PROFILE SERUM SP ONCE [facility] Jul 23, 2023 12:00 AM Laboratory - Chemi stry Order C-REACTIVE PROTEIN PLASMA SP ONCE [facility] Lab Results: +/- 30 days of the encounter This section includes the Chemistry and Hematology Lab Results on record with [place] for the patient. Radiology Reports and Pathology Reports are provided separately, in subsequent sections. Lab Results This section contains the Chemistry/Hematology Results that were resulted 30 days before or 30 daysafter the date of the Encounter. Date/Time Source Result Type Result - Unit Interpretation Reference Range Comment Jun 12, 2023 12:35 PM [facility] HEMOGLOBIN A1C Specimen Type: [...] Jun 12, 2023 12:34 PM Reporting Lab: [facility] [phone] Performing Lab: [facility] [id number] HEMOGLOBIN A1C 5.1 4.0-6.0 Jun 12, 2023 12:35 PM [facility] ANTI-HEP C(EIA) Specimen Type: SERUM No comment entered. Ordering Provider: RADHA HAYES Report Released Date/Time: Jun 12, 2023 12:34 PM Reporting Lab: [facility] [id number] Performing Lab: [place] [phone] ANTI-HEP C(EIA) NEGATIVE NEGATIVE Jun 12, 2023 12:35 PM [facility] HIV AG/AB SCREEN Specimen Type: SERUM No comment entered. Ordering Provider: RADHA HAYES Report Released Date/Time: Jun 12, 2023 12:34 PM Reporting Lab: [facility] [phone] Performing Lab: [facility] [phone] HIV AG/AB SCREEN NEGATIVE NEGATIVE Jun 12, 2023 12:35 PM [facility] TSH W/REFLEX TO FREE T4 Specimen Type: PLASMA No comment entered. Ordering Provider: RADHA HAYES Report Released Date/Time: Jun 12, 2023 12:34 PM Reporting Lab: [facility] [phone] Performing Lab: [facility] [phone] TSH 0.45 0.35-4.94 Jun 12, 2023 12:35 PM [facility] ELP/IMMFIX,SERUM PANEL Specimen Type: [...] Jun 12, 2023 12:34 PM Reporting Lab: [facility] [phone] Performing Lab: [facility] [address] PROTEIN,TOTAL 6.9 6.0-8.3 .ALBUMIN FRACTION 4.57 3.66-4.78 .ALPHA 1 FRACTION 0.25 0.14-0.38 .ALPHA 2 FRACTION 0.61 0.50-0.90 .BETA 1 FRACTION 0.39 0.33-0.55 .BETA 2 FRACTION 0.23 0.20-0.52 .GAMMA FRACTION 0.85 0.58-1.72 .TOTAL PROTEIN 6.9 6.0-8.3 .INTERPRETATION NO MONOCLONALS DETECTED Jun 12, 2023 12:35 PM [facility] VIT D 25-OH,TOTAL Specimen Type: SERUM No comment entered. Ordering Provider: RADHA HAYES Report Released Date/Time: Jun 12, 2023 12:34 PM Reporting Lab: [facility] [phone] Performing Lab: [facility] [phone] VIT D 25-OH,TOTAL 30 12-50 Jun 12, 2023 12:35 PM [facility] IRON GROUP Specimen Type: [...] Jun 12, 2023 12:34 PM Reporting Lab: [facility] [phone] Performing Lab: [facility] [phone] IRON 120 65-175 TIBC,CALCULATED 313 250-425 FERRITIN pending IRON SATURATION 38 20-50 TRANSFERRIN 250 163-382 Jun 12, 2023 12:35 PM [facility] COMPREHENSIVE METABOLIC PANEL+MG Specimen [...] Jun 12, 2023 12:34 PM Reporting Lab: [facility] [phone] Performing Lab: [facility] Jun 12, 2023 12:35 PM [facility] CBC & DIFF Specimen Type: BLOOD Comment: Automated Differential Performed Ordering Provider: RADHA HAYES Report Released Date/Time: Jun 12, 2023 12:34 PM Reporting Lab: [facility] [phone] Performing Lab: [facility] [phone] WBC 5.32 4.0-11.0 RBC 5.94 4.6-6.2 HGB [...] 0.01 0-0.1 Jun 12, 2023 10:30 AM [facility] URINALYSIS Specimen Type: URINE No comment entered. Ordering Provider: YANIRA BERTRAND Report Released Date/Time: Jun 12, 2023 10:01 AM Reporting Lab: [facility] [phone] Performing Lab: [facility] [phone] URINE COLOR LIGHT-YELLOW SPECIFIC GRAVITY 1.011 1.003-1.03 [...] and tobacco- related health factors from the [place] facility where the Encounter took place. Current Smoking Status This section includes the most current smoking, or tobacco-related health factor, from the [place] facility where the Encounter took place. Date/Time Current Smoking Status Comment Facil itchris Sep 24, 2022 01:00 PM VA-TOBACCO NEVER USED [facility] Tobacco Use History This section includes a history of the smoking, or tobacco-related health factors, that were collected on or before the date of the Encounter. The data comes from the [place] facility where the Encounter took place. Date/Time Smoking Status/Tobacco Use Comment F acility Mar 28, 2021 02:33 PM VA-TOBACCO NEVER USED [facility] Jan 21, 2020 02:30 PM VA-TOBACCO NEVER USED [facility] Jun 15, 2018 09:56 AM VA-TOBACCO NEVER USED [facility] Jul 16, 2017 08:39 AM LIFETIME NON-TOBACCO USER [facility] September 05, 2016 05:17 PM LIFETIME NON-TOBACCO USER [facility] Feb 19, 2008 12:20 PM LIFETIME NON-TOBACCO USER [facility] Radiology Reports: +/- 30 [...] the Encounter. The data comes from all [facility] facilities. Date/Time Radiology Report Provider Source Jun 12, 2023 10:35 AM CHEST 2 VIEWS PA A ND LAT: LILI,AFTAB HOLME [id number] 1985 M Exm Date: JUN 12, 2023@10:35 Req Phys: CAROLINA FRANCOIS Mitra Pat Loc: FSN [facility] C&P ALESSANDRO (Req'g Loc Img Loc: MAIN X-RAY Service: Unknown (Case [id number] COMPLETE) CHEST 2 VIEWS PA AND LAT (RAD Detailed) CPT:20827 Reason for Study: H/O asbestos exposure approximately 10 years ago. Clinical History: [place] IS NOT under investigation for COVID-19 or is COVID-19 negative H/O asbestos exposure approximately 10 years ago. Responsible provider name and phone number to notify for critical findings if other than user placing the order and pager listed below: User placing orders pager: LAST CREATININE 1.0 (12/26/22) Report Status: Verified Date Reported: JUN 12, 2023 Date Verified: JUN 12, 2023 Slab Lifting Engineer E-Sig:/ES/VERONICA FARLEY MD Report: EXAMINATION: CHEST 2 [...] Primary Interpreting Staff: VERONICA FARLEY MD, RADIOLOGIST (Slab Lifting Engineer) /VERONICA MACIEL [facility] Jun 12, 2023 10:35 AM LUMBAR SPINE MIN 4 VIEWS: AFTAB PEARSON [id number] -1985 M Exm Date: JUN 12, 2023@10:35 Req Phys: CAROLINA FRANCOIS Pat Loc: FSN [facility] C&P ALESSANDRO (Req'g Loc Img Loc: MAIN X-RAY Service: Unknown (Case [id number] COMPLETE) LUMBAR SPINE MIN 4 VIEWS (RAD Detailed) CPT:10980 Proc Modifiers : Standing Reason for Study: Chronic lumbalgia 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 [employer] Clinical History: [place] IS NOT under investigation for COVID-19 or [...] 12, 2023 Date Verified: JUN 12, 2023 Slab Lifting Engineer E-Sig:/ES/DANIEL BOND MD, FACR, CCD Report: EXAMINATION: [...] Staff: DANIEL BOND MD, FACR, STAFF RADIOLOGIST (Slab Lifting Engineer) /BSF DANIEL BOND [facility] Jun 12, 2023 10:34 AM KNEE RIGHT 4 VIEWS : AFTAB PEARSON [id number] -1985 M Exm Date: JUN 12, 2023@10:34 Req Phys: CAROLINA FRANCOIS Pat Loc: FSN [facility] C&P ALESSANDRO (Req'g Loc Img Loc: MAIN X-RAY Service: Unknown (Case [id number] COMPLETE) KNEE RIGHT 4 VIEWS (RAD Detailed) CPT:23492 Reason for Study: Chronic bilateral knee pain [...] 12, 2023 Date Verified: JUN 12, 2023 Slab Lifting Engineer E-Sig:/ES/VERONICA FARLEY MD Report: EXAMINATION: KNEE RIGHT 4 VIEWS 06/12/2023 10:34 AM INDICATION: 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 No significant degenerative changes of the knee. No significant joint effusion. No comparison exam. 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 [employer] Clinical History: [place] IS NOT under investigation for COVID-19 or is COVID-19 negative 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 [employer] Responsible provider name and phone number to notify for critical findings if other than user placing the order and pager listed below: User placing orders pager: LAST CREATININE 1.0 (12/26/22) Report Status: Verified Date Reported: JUN 12, 2023 Date Verified: JUN 12, 2023 Slab Lifting Engineer E-Sig:/ES/VERONICA FARLEY MD Report: EXAMINATION: KNEE LEFT 4 VIEWS 06/12/2023 10:34 AM INDICATION: 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 No significant degenerative changes of the knee. No significant joint effusion. Primary Interpreting Staff: VERONICA FARLEY MD, RADIOLOGIST (Slab Lifting Engineer) /RTS VERONICA FARLEY [facility] Encounter Notes: All associated encounter notes This section contains the clinical notes associated to the Encounter. Date/Time Encounter Note(s) Provider Source Jun 30, 2023 04:21 PM NONVA NOTE: LOCAL TITLE: [facility] PRE-AUTH LETTER (AUTOPRINT) STANDARD TITLE: NONVA NOTE DATE OF NOTE: JUN 30, 2023@16:21 ENTRY DATE: JUN 30, 2023@16:21:36 AUTHOR: NIRAJ,CAROLYNE L EXP COSIGNER: URGENCY: STATUS: COMPLETED Jun AFTAB PEARSON [address] [place], [place] [address] Dear AFTAB PEARSON, Your VA provider has referred you to a provider within the community for care. Your medical care for SLEEP has been authorized with the community care provider listed below. DO NOT REPORT TO THE [place] [facility] [place] Provider info: Care has been approved for the following vendor: Office name, address, and phone number: [facility] [place] [address] PH:[phone] Please contact the identified provider to schedule your community appointment. If you need assistance with this appointment, please call your facility community care office [facility] Office of Community Care at [phone] during the hours of 8:30AM - 3:00PM. Please follow up with your local [facility] community care office once this is scheduled. This step is needed to ensure your referral duration is maximized and the [place] has accurate referral information for billing purposes. Authorization Number: [id number] Referral Issue Date: Jun Expiration Date: Dec (subject to change based on first appointment) If you are unable to schedule this appointment or the appointment is no longer needed, please contact the community provider above for notification/rescheduling and then call the [facility] Office of Community Care at [phone] during the hours of 8:30AM - 3:00PM. If you need additional care/services not mentioned above or your authorization has and additional care is needed, please contact your primary care provider for a new referral. To review all care/service(s) approved under your referral, please go to the following link: [facility] [employer] [place] [email or web address]) Co-Payments: If you are required to pay a VA co-payment, you will be billed by the [place] for each authorized visit that you attend. However, you are NOT REQUIRED to make co-payments to a community provider. Thank you for the opportunity to serve you. Sincerely, [place] Community Care (VACC) /bhupendra/ CAROLYNE HEALY Advance Protozoologist Signed: 06/30/2023 16:23 CAROLYNE HEALY [facility]
--- OUTSIDE RECORDS SUMMARY | 2023-08-13 20:17 | XMS_ITS | Encounter Summary ---
Author Name [facility] Organization [facility] Address [address] [place] [address] Support Name Relationship Address Phone CASTRO PEARSON Next of Kin [address] [place] [address] CASTRO PEARSON Emergency Contact [address] [place] [address] Insurance Providers: All historical and [...] DOMINGA SEGUNDO SERVI JOSSELIN May 22, 2021 [id number] [phone] LILI,PH ILLIP PATIENT [place] PREFERRED PROVIDER ORGANIZAT ION (PPO) TRAELI WICK SERVI JOSSELIN May 22, 2021 [id number] [phone] LILI,PH ILLIP PATIENT PRIME THERAPEUTI CS PRESCRIPT ION RX PLAN May 22, 2021 [facility] [id number] [phone] LILI,PH ILLIP PATIENT Selected Encounter This section includes the information on record at [place] for the Encounter. Date/Time Encounter Type Encounter Description Reason Provider Source Jun 26, 2023 02:01 PM QNHP OL DIG ASSMT&MGMT 5-10 CLINICAL [facility]ACY ICD-10-CM J45.998 Other asthma XAVIER MINER [place] Encounter Template Text not used by [place] Assessments - Encounter Diagnoses This section includes the primary and secondary diagnoses documented for the Encounter. Date/Time Primary/Secondary Diagnosis Diagnosis Name Provider Source Jun 26, 2023 02:04 PM PRIMARY Other asthma MINER,TAYL OR MARISOL [facility] Plan of Treatment: Future Appointments (+ 6 months) and Future Tests (+/- 45 days) The Plan of Treatment section includes future care activities for the patient [facility] [place] [facility] This section includes future appointments and future orders which are active, pending or scheduled. Future Appointments This section includes appointments that were scheduled to occur 6 months from the date of the Encounter, up to a maximum of 20 appointments. The data comes from all [facility]. Appointment Date/Time Appointment Type Appointme nt Facility Name Jul 02, 2023 01:00 PM AMBULATORY - NONE [facility] Jul 17, 2023 10:30 AM AMBULATORY - MEDICINE [facility] Jul 22, 2023 09:34 PM AMBULATORY - MEDICINE [facility] August 20, 2023 01:20 PM AMBULATORY - MEDICINE [facility] Dec 09, 2023 02:30 PM [facility] Active, Pending, and Scheduled Orders This section includes a listing of several types of active, pending, and scheduled orders, including clinic medications orders, diagnostic test orders, procedure orders and consult orders; where the start date of the order is 45 days before the date of the Encounter or 45 days after the date of theEncounter. The data comes from all [facility]. Test Date/Time Test Type Test Details Facility Name May 15, 2023 12:12 PM Consult Order COMMUNITY CARE-SLEEP MEDICINE Cons [facility] Jul 23, 2023 12:00 AM Laboratory - Chemi stry Order TTG AB,IGA SERUM SP ONCE [facility] Jul 23, 2023 12:00 AM Laboratory - Chemi stry Order IGA PLASMA SP ONCE [facility] Jul 23, 2023 12:00 AM Laboratory - Chemi stry Order FOOD ALLERGY PROFILE SERUM SP ONCE [facility] Jul 23, 2023 12:00 AM Laboratory - Chemi stry Order C-REACTIVE PROTEIN PLASMA SP ONCE [facility] Lab Results: +/- 30 days of the encounter This section includes the Chemistry and Hematology Lab Results on record with [place] for the patient. Radiology Reports and Pathology Reports are provided separately, in subsequent sections. Lab Results This section contains the Chemistry/Hematology Results that were resulted 30 days before or 30 daysafter the date of the Encounter. Date/Time Source Result Type Result - Unit Interpretation Reference Range Comment Jun 12, 2023 12:35 PM [facility] HEMOGLOBIN A1C Specimen Type: BLOOD Comment: [...] Jun 12, 2023 12:34 PM Reporting Lab: [facility] [id number] Performing Lab: [facility] [phone] HEMOGLOBIN A1C 5.1 4.0-6.0 Jun 12, 2023 12:35 PM [facility] ANTI-HEP C(EIA) Specimen Type: SERUM No comment entered. Ordering Provider: RADHA HAYES Report Released Date/Time: Jun 12, 2023 12:34 PM Reporting Lab: [facility] [phone] Performing Lab: [facility] [phone] ANTI-HEP C(EIA) NEGATIVE NEGATIVE Jun 12, 2023 12:35 PM [facility] HIV AG/AB SCREEN Specimen Type: SERUM No comment entered. Ordering Provider: RADHA HAYES Report Released Date/Time: Jun 12, 2023 12:34 PM Reporting Lab: [facility] [phone] Performing Lab: [facility] [phone] HIV AG/AB SCREEN NEGATIVE NEGATIVE Jun 12, 2023 12:35 PM [facility] TSH W/REFLEX TO FREE T4 Specimen Type: PLASMA No comment entered. Ordering Provider: RADHA HAYES Report Released Date/Time: Jun 12, 2023 12:34 PM Reporting Lab: [facility] [phone] Performing Lab: [facility] [address] TSH 0.45 0.35-4.94 Jun 12, 2023 12:35 PM [facility] ELP/IMMFIX,SERUM PANEL Specimen Type: SERUM Comment: [...] Jun 12, 2023 12:34 PM Reporting Lab: [facility] [phone] Performing Lab: [facility] [phone] PROTEIN,TOTAL 6.9 6.0-8.3 .ALBUMIN FRACTION 4.57 3.66-4.78 .ALPHA 1 FRACTION 0.25 0.14-0.38 .ALPHA 2 FRACTION 0.61 0.50-0.90 .BETA 1 FRACTION 0.39 0.33-0.55 .BETA 2 FRACTION 0.23 0.20-0.52 .GAMMA FRACTION 0.85 0.58-1.72 .TOTAL PROTEIN 6.9 6.0-8.3 .INTERPRETATION NO MONOCLONALS DETECTED Jun 12, 2023 12:35 PM [facility] VIT D 25-OH,TOTAL Specimen Type: SERUM No comment entered. Ordering Provider: RADHA HAYES Report Released Date/Time: Jun 12, 2023 12:34 PM Reporting Lab: [facility] [phone] Performing Lab: [facility] [phone] VIT D 25-OH,TOTAL 30 12-50 Jun 12, 2023 12:35 PM [facility] IRON GROUP Specimen Type: SERUM Comment: [...] Jun 12, 2023 12:34 PM Reporting Lab: [facility] [phone] Performing Lab: [facility] [phone] IRON 120 65-175 TIBC,CALCULATED 313 250-425 FERRITIN pending IRON SATURATION 38 20-50 TRANSFERRIN 250 163-382 Jun 12, 2023 12:35 PM [facility] COMPREHENSIVE METABOLIC PANEL+MG Specimen Type: PLASMA [...] Jun 12, 2023 12:34 PM Reporting Lab: [facility] [phone] Performing Lab: [facility] Jun 12, 2023 12:35 PM [facility] CBC & DIFF Specimen Type: BLOOD Comment: Automated Differential Performed Ordering Provider: RADHA HAYES Report Released Date/Time: Jun 12, 2023 12:34 PM Reporting Lab: [facility] [phone] Performing Lab: [facility] [phone] WBC 5.32 4.0-11.0 RBC 5.94 4.6-6.2 HGB [...] 0.01 0-0.1 Jun 12, 2023 10:30 AM [facility] URINALYSIS Specimen Type: URINE No comment entered. Ordering Provider: YANIRA BERTRAND Report Released Date/Time: Jun 12, 2023 10:01 AM Reporting Lab: [facility] [phone] Performing Lab: [facility] [address] URINE COLOR LIGHT-YELLOW SPECIFIC GRAVITY 1.011 1.003-1.03 [...] 92 127/79 [address] [facility] Social History: Smoking Status (Most current) and Tobacco Use (All prior to encounter date) This section includes the most current, and the historical, smoking and tobacco- related health factors from the [place] facility where the Encounter took place. Current Smoking Status This section includes the most current smoking, or tobacco-related health factor, from the [place] facility where the Encounter took place. Date/Time Current Smoking Status Comment Parag lima Sep 24, 2022 01:00 PM VA-TOBACCO NEVER USED [facility] Tobacco Use History This section includes a history of the smoking, or tobacco-related health factors, that were collected on or before the date of the Encounter. The data comes from the [place] facility where the Encounter took place. Date/Time Smoking Status/Tobacco Use Comment F acility Mar 28, 2021 02:33 PM VA-TOBACCO NEVER USED [facility] Jan 21, 2020 02:30 PM VA-TOBACCO NEVER USED [facility] Jun 15, 2018 09:56 AM VA-TOBACCO NEVER USED [facility] Jul 16, 2017 08:39 AM LIFETIME NON-TOBACCO USER [facility] September 05, 2016 05:17 PM LIFETIME NON-TOBACCO USER [facility] Feb 19, 2008 12:20 PM LIFETIME NON-TOBACCO USER [facility] Radiology Reports: +/- 30 days of [...] the Encounter. The data comes from all [facility] facilities. Date/Time Radiology Report Provider Source Jun 12, 2023 10:35 AM CHEST 2 VIEWS PA A ND LAT: AFTAB PEARSON [id number] -1985 M Exm Date: JUN 12, 2023@10:35 Req Phys: CAROLINA FRANCOIS Pat Loc: N [facility] C&P ALESSANDRO (Req'g Loc Img Loc: MAIN X-RAY Service: Unknown (Case [id number] COMPLETE) CHEST 2 VIEWS PA AND LAT (RAD Detailed) CPT:98518 Reason for Study: H/O asbestos exposure approximately [...] 12, 2023 Date Verified: JUN 12, 2023 Steward Dishwasher E-Sig:/ES/VERONICA FARLEY MD Report: EXAMINATION: CHEST 2 [...] Primary Interpreting Staff: VERONICA FARLEY MD, RADIOLOGIST (Steward Dishwasher) /RTS VEROINCA FARLEY [facility] Jun 12, 2023 10:35 AM LUMBAR SPINE MIN 4 VIEWS: AFTAB PEARSON [id number] -1985 M Exm Date: JUN 12, 2023@10:35 Req Phys: CAROLINA FRANCOIS Pat Loc: [facility] C&P ALESSANDRO (Req'g Loc Img Loc: MAIN X-RAY Service: Unknown (Case [id number] COMPLETE) LUMBAR SPINE MIN 4 VIEWS (RAD Detailed) CPT:84255 Proc Modifiers : Standing Reason for Study: [...] 12, 2023 Date Verified: JUN 12, 2023 Steward Dishwasher E-Sig:/ES/DANIEL BOND MD, FACR, CCD Report: EXAMINATION: [...] Staff: DANIEL BOND MD, FACR, STAFF RADIOLOGIST (Steward Dishwasher) /BSF DANIEL BOND [facility] Jun 12, 2023 10:34 AM KNEE RIGHT 4 VIEWS : AFTAB PEARSON [id number] -1985 M Exm Date: JUN 12, 2023@10:34 Req Phys: CAROLINA FRANCOIS B Pat Loc: [facility] C&P ALESSANDRO (Req'g Loc Img Loc: MAIN X-RAY Service: Unknown (Case [id number] COMPLETE) KNEE RIGHT 4 VIEWS (RAD Detailed) CPT:90018 Reason for Study: 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 [employer] Clinical History: [place] IS NOT under investigation for COVID-19 or is COVID-19 negative 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 No significant degenerative changes of the knee. No significant joint effusion. No comparison exam. 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 [employer] Clinical History: [place] IS NOT under investigation for COVID-19 or is COVID-19 negative 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 No significant degenerative changes of the knee. No significant joint effusion. Primary Interpreting Staff: VERONICA FARLEY MD, RADIOLOGIST (Steward Dishwasher) /RTS VERONICA FARLEY [facility] Encounter Notes: All associated encounter notes This section contains the clinical notes associated to the Encounter. Date/Time Encounter Note(s) Provider Source Jun 26, 2023 02:01 PM PHARMACY CONSULT: LOCAL TITLE: PHARMACY PRIOR AUTHORIZATION APPROVED CONSULT STANDARD TITLE: PHARMACY CONSULT DATE OF NOTE: JUN 26, 2023@14:01 ENTRY DATE: JUN 26, 2023@14:01:55 AUTHOR: JOAQUINA MINER EXP COSIGNER: URGENCY: STATUS: COMPLETED The medical record has been reviewed with regard to this prior authorization drug request. Medication requested: BUDESONIDE 160/FORMOTER 4.5MCG 120D INH Medication indication: asthma Medical history relevant to this request: Previous therapies: - none ASSESSMENT: - other inhalers not indicated for PRN & maintenance use - using for asthma & rec by pulm The request is approved - No formulary-preferred alternative Active Outpatient Medications (including Supplies): BUDESONIDE 160/FORMOTER 4.5MCG 120D INH INHALE 1 PUFF BY PENDING INHALATION NEEDED BUPROPION HCL 300MG 24HR SA TAB TAKE ONE TABLET BY MOUTH ACTIVE EVERY MORNING FOR MOOD CITALOPRAM HYDROBROMIDE 20MG TAB TAKE ONE AND ONE-HALF ACTIVE TABLETS BY MOUTH EVERY DAY FOR ANXIETY HYDROXYZINE HCL 25MG TAB TAKE ONE TABLET BY MOUTH AT ACTIVE BEDTIME FOR SLEEP LACTASE 3000 UNT TAB TAKE ONE TABLET BY MOUTH FOUR TIMES A ACTIVE DAY NEEDED FOR LACTOSE INTOLERANCE LOPERAMIDE HCL 2MG CAP TAKE ONE CAPSULE BY MOUTH THREE ACTIVE TIMES A DAY NEEDED FOR DIARRHEA SILDENAFIL CITRATE 100MG TAB TAKE ONE TABLET BY MOUTH ONCE ACTIVE NEEDED FOR ERECTILE DYSFUNCTION Non-VA DIPHENHYDRAMINE HCL 25MG CAP 25MG MOUTH EVERY DAY ACTIVE NEEDED Non-VA LORATADINE 10MG TAB 10MG MOUTH EVERY DAY NEEDED ACTIVE /es/ JOAQUINA MINER PHARMACIST Signed: 06/26/2023 14:04 JOAQUINA MINER [facility]
== END 2023-08-13 20:08 | disposition home or self-care (01) ==
LOC: SLEEP 20:13
PROVIDERS: Visit Provider Internal Medicine
DX: G47.33 Obstructive sleep apnea (adult) (pediatric) (principal)
CPT/HCPCS: 95810